=== PATIENT | male | born 2005 | race Caucasian/White ===

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

== ENCOUNTER 2024-05-03 17:59 | Observation (INO) | payer OTHER ==
[2024-05-03 18:52] LABS: Basophils # (A) 0.1 k/uL (0-0.2); Basophils % (A) 1 %; Eosinophils % (A) 0 %; HCT 45.5 % (39.0-53.0); HGB 14.7 gm/dL (13.0-17.5); Lymphocytes # (A) 1.9 k/uL (1.0-4.8); Lymphocytes % (A) 20 %; MCH 31.1 pg (25.0-35.0); MCHC 32.2 g/dL (31.0-37.0); MCV 96.6 fL (80.0-100.0); Mean Platelet Volume 7.1; Monocytes # (A) 0.6 k/uL (0-1.0); Monocytes % (A) 6 %; Neutrophils # (A) 7.1 k/uL (1.3-7.7); Neutrophils % (A) 73 %; Platelet Count 270 k/uL (150-450); RBC 4.71 m/uL (4.30-5.90); WBC 9.8 k/uL (4.0-11.0)
[2024-05-03 19:07] LABS: INR 1.1 (<1.2); Partial Thromboplastin Time 26.2 sec (22.0-30.0); Prothrombin Time 11.8 sec (10.0-12.5)
[2024-05-03 19:09] LABS: ALT 20 U/L (4-49); AST 24 U/L (17-59); African American GFR (CKD) >90 (>60 ml/min/1.73 sqM); Albumin 4.9 g/dL (3.5-5.0); Alkaline Phosphatase 77 U/L (38-126); Anion Gap 10 mmol/L; Blood Urea Nitrogen 15 mg/dL (9-20); Calcium 11.1 mg/dL (8.4-10.2); Carbon Dioxide 24 mmol/L (22-30); Chloride 103 mmol/L (98-107); Glucose 117 mg/dL (74-99); Magnesium 2.1 mg/dL (1.6-2.3); Non-African American GFR(CKD) >90 (>60 ml/min/1.73 sqM); Sodium 137 mmol/L (137-145); Total Bilirubin 1.2 mg/dL (0.2-1.3); Total Protein 7.1 g/dL (6.3-8.2)
--- NOTE | 2024-05-03 19:14 | XR ---
EXAMINATION TYPE: XR chest 2V DATE OF EXAM: 05/03/2024 6:48 PM CLINICAL INDICATION:Male, 19 years old with history of Chest Pain; [facility] COMPARISON: None TECHNIQUE: XR chest 2V Frontal and lateral views of the chest. FINDINGS: Lungs/Pleura: There is no evidence of pleural effusion, focal consolidation, or pneumothorax. Pulmonary vascularity: Unremarkable. Heart/mediastinum: Cardiomediastinal silhouette is unremarkable. Musculoskeletal: No acute osseous pathology. IMPRESSION: No acute cardiopulmonary disease/process.
--- NOTE | 2024-05-03 21:45 | ED ---
Chest Pain HPI - General Chief Complaint: Chest Pain Stated Complaint: SOB/heart flutter Time Seen by Provider: 05/03/24 20:28 Source: patient, RN notes reviewed Mode of arrival: ambulatory Limitations: no limitations - History of Present Illness Initial Comments: 19-year-old male with no significant prior medical history however history of prior IV drug use presenting to the ED with complaints of palpitations, shortness of breath, chest pains. Patient reports last IV drug use approximately 7 months ago. Was snorting and using IV cocaine. States the month following started to notice intermittent episodes of epigastric/chest pain with associated episodes of palpitations and shortness of breath. Reports over the next 3 to 4 months symptoms seem to subside with less frequent episodes however states in the last 3 months symptoms have worsened and have been increasing in frequency. States that he just finished rehab last month and now has free time to get checked out today. No fever or chills. Denies new rashes. No other complaints at this time. - Related Data Home Medications Medication Instructions Recorded Confirmed Lisdexamfetamine Dimesylate 30 mg PO DAILY 02/12/19 02/12/19 [Vyvanse] Allergies Allergy/AdvReac Type Severity Reaction Status Date / Time No Known Allergies Allergy Verified 05/03/24 18:13 Review of Systems ROS Statement: Those systems with pertinent positive or pertinent negative responses have been documented in the HPI. ROS Other: All systems not noted in ROS Statement are negative. Past Medical History Additional Past Medical History / Comment(s): bipolar, ADD History of Any Multi-Drug Resistant Organisms: None Reported Past Surgical History: No Surgical Hx Reported Past Psychological History: ADD/ADHD, Bipolar Smoking Status: Vaper Past Alcohol Use History: Occasional Past Drug Use History: Cocaine, Marijuana General Exam Limitations: no limitations General appearance: alert, in no apparent distress Eye exam: Present: normal appearance Neck exam: Present: normal inspection Respiratory exam: Present: normal lung sounds bilaterally Cardiovascular Exam: Present: regular rate, other (Unable to appreciate any murmur at this time.) GI/Abdominal exam: Present: soft (Epigastric tenderness to palpation.) Neurological exam: Present: alert, oriented X3 Skin exam: Present: other (No Janeway lesions or Osler nodes.) Course Vital Signs 05/03/24 18:11 Temperature 98.4 F Pulse Rate 98 Respiratory 18 Rate Blood Pressure 117/71 O2 Sat by Pulse 98 Oximetry Chest Pain MDM - MDM Was pt. sent in by a medical professional or institution (, [facility], [employer], urgent care, hospital, or retirement...) When possible be specific @ -No Did you speak to anyone other than the patient for history (EMS, parent, family, police, friend...)? What history was obtained from this source @ -No Did you review nursing and triage notes (agree or disagree)? Why? @ -I reviewed and agree with nursing and triage notes Were old charts reviewed (outside hosp., previous admission, EMS record, old EKG, old radiological studies, urgent care reports/EKG's, retirement records)? Report findings @ -No old charts were reviewed Differential Diagnosis (chest pain, altered mental status, abdominal pain women, abdominal pain men, vaginal bleeding, weakness, fever, dyspnea, syncope, headache, dizziness, GI bleed, back pain, seizure, CVA, palpatations, mental health, musculoskeletal)? @ -Differential Chest Pain: Stable Angina, Unstable Angina, STEMI, NSTEMI Aortic Dissection, Pneumothorax, Musculoskeletal, Esophageal Spasm GERD, Cholecystitis, Pancreatitis, Zoster, this is not meant to be an all-inclusive list. EKG interpreted by me (3pts min.). @ -EKG interpreted by me showing a sinus rhythm with nonspecific findings at a rate of 87 bpm. AR 162, QRS 94, QT/QTc 323/368. X-rays interpreted by me (1pt min.). @ -None done CT interpreted by me (1pt min.). @ -Pending at this time U/S interpreted by me (1pt. min.). @ -None done What testing was considered but not performed or refused? (CT, X-rays, U/S, labs)? Why? @ -None What meds were considered but not given or refused? Why? @ -None Did you discuss the management of the patient with other professionals (professionals i.e. [facility], [employer], lab, RT, psych nurse, child protective services social worker, eligibility specialist, teacher, accounts officer, field case manager)? Give summary @ -Case discussed with Dr. Hopkins who accepts admission. Was smoking cessation discussed for >3mins.? @ -No Was critical care preformed (if so, how long)? @ -No Were there social determinants of health that impacted care today? How? (Homelessness, low income, unemployed, alcoholism, drug addiction, transportation, low edu. Level, literacy, decrease access to med. care, care home, rehab)? @ -No Was there de-escalation of care discussed even if they declined (Discuss DNR or withdrawal of care, Hospice)? DNR status @ -No What co-morbidities impacted this encounter? (DM, HTN, Smoking, COPD, CAD, Cancer, CVA, ARF, Chemo, Hep., AIDS, mental health diagnosis, sleep apnea, morbid obesity)? @ -None Was patient admitted / discharged? Hospital course, mention meds given and route, prescriptions, significant lab abnormalities, going to OR and other pertinent info. @ -Admission 19-year-old male with a past medical history significant for IV drug abuse presenting to the ED with complaints of intermittent chest pain, palpitations, shortness of breath. Initial workup at this time unremarkable however EKG did show nonspecific findings. Patient will be admitted to observation with consult to cardiology. Undiagnosed new problem with uncertain prognosis? @ -No Drug Therapy requiring intensive monitoring for toxicity (Heparin, Nitro, Insulin, Cardizem)? @ -No Were any procedures done? @ -No Diagnosis/symptom? @ -Chest pain Acute, or Chronic, or Acute on Chronic? @ -Acute Uncomplicated (without systemic symptoms) or Complicated (systemic symptoms)? @ -Uncomplicated Side effects of treatment? @ -No Exacerbation, Progression, or Severe Exacerbation? @ -No Poses a threat to life or bodily function? How? (Chest pain, [place], [place], pneumonia, PE, COPD, DKA, ARF, appy, cholecystitis, CVA, Diverticulitis, Homicidal, Suicidal, threat to staff... and all critical care pts) @ -Unlikely at this time however possibly Disposition Clinical Impression: Chest pain Disposition: ADMITTED IP TO THIS [facility] Condition: Good Referrals: None,Stated [Primary Care Provider] - 1-2 days Time of Disposition: 23:00
[2024-05-03] MEDS ORDERED: KETOROLAC 15 MG/ML 1 ML VIAL IVP PRN (23:16)
[2024-05-03] MEDS ORDERED: ACETAMINOPHEN TAB 325 MG TAB PO PRN (23:16)
[2024-05-03] MEDS ORDERED: NALOXONE 0.4 MG/ML 1 ML VIAL IV PRN (23:16)
[2024-05-04] MEDS: SODIUM CHLORIDE 0.9% 1,000 ML IV SCH (00:32)
--- NOTE | 2024-05-04 01:21 | CT ---
EXAM: CT Angiography Chest With Intravenous Contrast CLINICAL HISTORY: Palpitations, chest pain, dyspnea hx IVDA TECHNIQUE: Axial computed tomographic angiography images of the chest with intravenous contrast. CTDI is 13.17 mGy and DLP is 339.9 mGy-cm. This CT exam was performed using one or more of the following dose reduction techniques: automated exposure control, adjustment of the mA and/or kV according to patient size, and/or use of iterative reconstruction technique. 3D and MIP reconstructed images were created and reviewed. COMPARISON: Chest x-ray 05/03/2024. FINDINGS: Pulmonary arteries: No pulmonary embolism. Aorta: No thoracic aortic aneurysm or dissection. Lungs: No consolidation. Pleural space: No pleural effusion. No pneumothorax. Heart: No cardiomegaly. No pericardial effusion. No evidence of RV dysfunction. Bones/joints: No acute fracture. Soft tissues: Unremarkable. Lymph nodes: Unremarkable. No enlarged lymph nodes. IMPRESSION: No pulmonary embolism. No infiltrate.
--- NOTE | 2024-05-04 03:40 | P.HPIM ---
History of Present Illness H&P Date: 05/04/24 Patient is a 19-year-old male with a PMH of cocaine abuse who presents to the emergency room with complaints of chest pain and shortness of breath. Patient reports he has been experiencing intermittent pleuritic substernal and epigastric chest discomfort for the past 6 to 7 months with associated shortness of breath. Notes that the pain occurs at rest and with exertion, with tenderness in the epigastric region and that the pain is worsened with deep breathing. Notes the pain is 8 out of 10 at maximal intensity and is sharp in nature when it occurs with no associated nausea, diaphoresis, or dizziness. Also denied experiencing palpitations. Notes that his last use of cocaine was roughly 7 months ago prior to when his pain started. He denies using NSAIDs or having a history of PUD or gastric ulcers. Denies experiencing fever, chills, cough, diarrhea. Chest CTA in the emergency room was unremarkable with EKG showing sinus rhythm at [address] segment elevation diffusely as reviewed by me. Chest x-ray was unremarkable. Laboratory evaluation revealed troponin of less than 0.012 with calcium 11.1 and glucose 117. ED documentation reviewed and case discussed with ED provider. Review of systems: Pertinent positives and negatives as discussed in HPI, a complete review of systems was performed and all other systems are negative. Physical examination: Vital signs reviewed General: non toxic, no distress, appears at stated age, normal weight Derm: no unusual rashes/lesions, warm Head: atraumatic, normocephalic, symmetric Eyes: EOMI, no lid lag, anicteric sclera, pupils equal round reactive to light ENT: Nose and ears atraumatic Neck: No cervical lymphadenopathy, trachea midline, supple Mouth: no lip lesion, mucus membranes moist Cardiovascular: S1S2 reg, no murmur, positive dorsalis pedis pulse bilateral, no edema Lungs: CTA bilateral, no rhonchi, no rales, no accessory muscle use Abdominal: soft, mild epigastric tenderness, no guarding Ext: muscle strength 5 out of 5 in all 4 extremities grossly, no gross muscle atrophy, no contractures, Neuro: CN II-XI grossly intact, no gross focal neuro deficits Psych: Alert, oriented, appropriate affect Assessment: Atypical chest pain with shortness of breath and EKG abnormalities History of cocaine abuse Imaging: Chest CTA in the emergency room was unremarkable with EKG showing sinus rhythm at [address] segment elevation diffusely as reviewed by me. Chest x-ray was unremarkable. Data Review: Laboratory evaluation revealed troponin of less than 0.012 with calcium 11.1 and glucose 117. Plan: Cardiac monitoring Cardiology consulted Echocardiogram ordered DVT prophylaxis: Lovenox subcu The patient is admitted with an anticipated less than 2 midnight stay for evaluation of chest pain CODE STATUS: Full Code Discussed with: Patient Anticipated discharge place: Home Past Medical History Additional Past Medical History / Comment(s): bipolar, ADD History of Any Multi-Drug Resistant Organisms: None Reported Past Surgical History: No Surgical Hx Reported Past Psychological History: ADD/ADHD, Bipolar Smoking Status: Vaper Past Alcohol Use History: Occasional Past Drug Use History: Cocaine, Marijuana - Past Family History Mother Family Medical History: Hypertension Medications and Allergies Home Medications Medication Instructions Recorded Confirmed Type Lisdexamfetamine Dimesylate 30 mg PO DAILY 02/12/19 02/12/19 History [Vyvanse] Allergies Allergy/AdvReac Type Severity Reaction Status Date / Time No Known Allergies Allergy Verified 05/03/24 18:13 Physical Exam Vitals: Vital Signs Temp Pulse Resp BP Pulse Ox 05/04/24 00:33 57 L 20 05/03/24 23:30 66 20 123/69 99 05/03/24 18:11 98.4 F 98 18 117/71 98 Intake and Output 05/03/24 05/03/24 05/04/24 14:59 22:59 06:59 Other: Weight 76.204 kg Results CBC & Chem 7: 05/03/24 18:32 05/03/24 18:32 Labs: Abnormal Lab Results - Last 24 Hours (Table) 05/03/24 Range/Units 18:32 Glucose 117 H (74-99) mg/dL Calcium 11.1 H (8.4-10.2) mg/dL
[2024-05-04] MEDS: ENOXAPARIN 40 MG/0.4 ML SYRINGE SQ SCH (08:15)
[2024-05-04] MEDS: ASPIRIN 81 MG PO SCH (10:20)
--- NOTE | 2024-05-04 10:21 | P.CRDCN ---
History of Present Illness History of present illness: HISTORY OF PRESENT ILLNESS: This is a 19-year-old male with a past medical history significant for cocaine use. Patient does not follow with a mechanical test technician. We have been asked to see the patient in consultation for chest pain. Patient examined at the bedside in the emergency room. Patient states he has been having chest discomfort for the past 6 to 7 months. He states this all began since his last relapse of cocaine which was about 7 months ago. He states he has been sober since that time. He states that he finished rehab at the end of March and is now in a sober living. He rep orts associated shortness of breath when he has the chest pain. He also reports having palpitations. He states that there is nothing really specific that can bring on the pain. He does report that caffeine or preworkout does seem to make his symptoms worse. Patient is a daily smoker in the form of vaping. DIAGNOSTICS: - EKG reveals sinus mechanism with early repolarization. - Chest xray negative for acute process. - Chest CTA: Negative for pulmonary embolism. No infiltrate visualized. - Laboratory data: WBC 9.8. Hemoglobin 14.7. Platelet count 270. Sodium 137. Potassium 4.0. BUN 15. Creatinine 0.90. Troponin negative x 4 - Current home cardiac medications include none. REVIEW OF SYSTEMS: At the time of my exam: CONSTITUTIONAL: Denies fever or chills. HEENT: Denies blurred vision, vision changes, or eye pain. Denies hemoptysis CARDIOVASCULAR: Denies chest pain. Denies orthopnea. Denies PND. Denies palpitations RESPIRATORY: Denies shortness of breath. GASTROINTESTINAL: Denies abdominal pain. Denies nausea or vomiting. HEMATOLOGIC: Denies bleeding disorders. GENITOURINARY: Denies any blood in urine. SKIN: Denies pruitis. Denies rash. PHYSICAL EXAM: VITAL SIGNS: Reviewed. GENERAL: Well-developed in no acute distress. HEENT: Head is normocephalic. Pupils are equal, round. Sclerae anicteric. Mucous membranes of the mouth are moist. Neck supple. No JVD or thyromegaly LUNGS: Respirations even and unlabored. Lungs essentially clear to auscultation bilaterally. HEART: Regular rate and rhythm. S1 and S2 heard. ABDOMEN: Soft. Nondistended. Nontender. EXTREMITIES: Normal range of motion. No clubbing or cyanosis. Peripheral pulses intact. No lower extremity edema NEUROLOGIC: Awake and alert. Oriented x 3. ASSESSMENT: Chest pain, troponin negative x 4 History of cocaine abuse Nicotine dependence, patient vapes PLAN: An acute coronary event has been ruled out Obtain 2D echo to assess cardiac structure and function Patient to undergo exercise stress test today. If negative he may be discharged home from a cardiac standpoint Smoking cessation recommended. Patient to be referred to [place] quit line upon discharge. Further recommendations pending patient course Nurse practitioner note has been reviewed by physician. Signing provider agrees with the documented findings, assessment, and plan of care documented by BREWERY PUMPER as a scribe. Past Medical History Additional Past Medical History / Comment(s): bipolar, ADD History of Any Multi-Drug Resistant Organisms: None Reported Past Surgical History: No Surgical Hx Reported Past Psychological History: ADD/ADHD, Bipolar Smoking Status: Vaper Past Alcohol Use History: Occasional Past Drug Use History: Cocaine, Marijuana - Past Family History Mother Family Medical History: Hypertension Medications and Allergies Home Medications Medication Instructions Recorded Confirmed Type No Known Home Medications 05/04/24 05/04/24 History Allergies Allergy/AdvReac Type Severity Reaction Status Date / Time No Known Allergies Allergy Verified 05/04/24 07:39 Physical Exam Vitals: Vital Signs Temp Pulse Resp BP Pulse Ox 05/04/24 03:58 98.2 F 72 20 118/70 99 05/04/24 00:33 57 L 20 05/03/24 23:30 66 20 123/69 99 05/03/24 18:11 98.4 F 98 18 117/71 98 Intake and Output 05/03/24 05/04/24 05/04/24 22:59 06:59 14:59 Other: Weight 76.204 kg Results 05/03/24 18:32 05/03/24 18:32 Cardiac Enzymes 05/03/24 05/03/24 05/03/24 Range/Units 18:32 18:32 22:19 AST 24 (17-59) U/L Troponin I <0.012 <0.012 (0.000-0.034) ng/mL 05/04/24 05/04/24 Range/Units 01:20 05:19 AST (17-59) U/L Troponin I <0.012 <0.012 (0.000-0.034) ng/mL Coagulation 05/03/24 Range/Units 18:32 PT 11.8 (10.0-12.5) sec APTT 26.2 (22.0-30.0) sec CBC 05/03/24 Range/Units 18:32 WBC 9.8 (4.0-11.0) k/uL RBC 4.71 (4.30-5.90) m/uL Hgb 14.7 (13.0-17.5) gm/dL Hct 45.5 (39.0-53.0) % Plt Count 270 (150-450) k/uL Comprehensive Metabolic Panel 05/03/24 Range/Units 18:32 Sodium 137 (137-145) mmol/L Potassium 4.0 (3.5-5.1) mmol/L Chloride 103 (98-107) mmol/L Carbon Dioxide 24 (22-30) mmol/L BUN 15 (9-20) mg/dL Creatinine 0.90 (0.66-1.25) mg/dL Glucose 117 H (74-99) mg/dL Calcium 11.1 H (8.4-10.2) mg/dL AST 24 (17-59) U/L ALT 20 (4-49) U/L Alkaline Phosphatase 77 (38-126) U/L Total Protein 7.1 (6.3-8.2) g/dL Albumin 4.9 (3.5-5.0) g/dL Current Medications Generic Name Dose Route Start Last Admin Trade Name Freq PRN Reason Stop Dose Admin Acetaminophen 650 mg 05/03/24 23:16 Acetaminophen Tab 325 Mg Tab PO Q6HR PRN Mild Pain or Fever > 100.5 Enoxaparin Sodium 40 mg 05/04/24 09:00 Enoxaparin 40 Mg/0.4 Ml Syringe SQ DAILY SUNNY Sodium Chloride 1,000 mls @ 20 mls/hr 05/03/24 23:30 05/04/24 00:32 Saline 0.9% IV 20 mls/hr .Q24H SUNNY Administration Ketorolac Tromethamine 15 mg 05/03/24 23:16 Ketorolac 15 Mg/Ml 1 Ml Vial IVP 05/06/24 23:17 Q6HR PRN Moderate Pain (Scale 4 to 6) Naloxone HCl 0.2 mg 05/03/24 23:16 Naloxone 0.4 Mg/Ml 1 Ml Vial IV Q2M PRN Opioid Reversal Intake and Output 05/03/24 05/04/24 05/04/24 22:59 06:59 14:59 Other: Weight 76.204 kg 05/03/24 18:32 05/03/24 18:32
--- NOTE | 2024-05-04 11:20 | CA ---
Transthoracic Echo Report Name: Binh Narayan Age: 19 Gender: M : 2005 Exam Date: 05/04/2024 08:19 Exam Location: [facility] Ht (in): 71 Wt (lb): 168 Ordering Physician: Lamine Hopkins MD Attending/Referring Phys: Veterinary X Ray Operator Naida Henriquez RDCS Procedure CPT: Indications: Chest Pain Cardiac Hx: Technical Quality: Contrast 1: Total Dose (mL): Contrast 2: Total Dose (mL): MEASUREMENTS (Male / Female) Normal Values 2D ECHO LV Diastolic Diameter PLAX 4.3 cm 4.2 - 5.9 / 3.9 - 5.3 cm LV Systolic Diameter PLAX 3.4 cm IVS Diastolic Thickness 0.8 cm 0.6 - 1.0 / 0.6 - 0.9 cm LVPW Diastolic Thickness 0.9 cm 0.6 - 1.0 / 0.6 - 0.9 cm LV Relative Wall Thickness 0.4 RV Internal Dim ED PLAX 4.4 cm LA Volume 50.4 cm??? 18 - 58 / 22 - 52 cm??? LA Volume Index 25.7 cm???/m??? 16 - 28 cm???/m??? M-MODE Aortic Root Diameter MM 3.2 cm LA Systolic Diameter MM 2.9 cm LA Ao Ratio MM 0.9 AV Cusp Separation MM 2.4 cm DOPPLER AV Peak Velocity 101.0 cm/s AV Peak Gradient 4.1 mmHg AV Mean Velocity 67.9 cm/s AV Mean Gradient 2.0 mmHg AV Velocity Time Integral 21.7 cm LVOT Peak Velocity 73.4 cm/s LVOT Peak Gradient 2.2 mmHg LVOT Velocity Time Integral 14.9 cm MV Area PHT 2.3 cm??? Mitral E Point Velocity 79.1 cm/s Mitral A Point Velocity 36.1 cm/s Mitral E to A Ratio 2.2 MV Deceleration Time 328.4 ms MV E' Velocity 16.3 cm/s Mitral E to MV E' Ratio 4.8 TR Peak Velocity 223.1 cm/s TR Peak Gradient 19.9 mmHg FINDINGS Left Ventricle Left ventricular cavity size normal. Left ventricular wall thickness normal. Normal left ventricular systolic function with no obvious regional wall motion abnormalities. Left ventricular ejection fraction is estimated at 50 %. Normal left ventricular diastolic filling pattern. Right Ventricle Right ventricular dilatation. Right ventricular systolic pressure within normal limits. Right Atrium Normal right atrial size. Left Atrium Normal left atrial size. Mitral Valve Structurally normal mitral valve. Trace to mild mitral regurgitation. Aortic Valve Trileaflet aortic valve. No aortic valve stenosis or regurgitation. Tricuspid Valve Structurally normal tricuspid valve. Mild tricuspid regurgitation. Pulmonic Valve Structurally normal pulmonic valve. Trace pulmonic regurgitation. Pericardium No pericardial effusion. Aorta Normal size aortic root and proximal ascending aorta. CONCLUSIONS Low normal LV systolic function with EF at 50% Normal RV dimension and systolic function Normal pulmonary artery systolic pressure Overall normal intracardiac valves. The aortic valve was poorly visualized No evidence of pericardial effusion Previewed by: Dr. Severino Dale MD (Electronically Signed) Final Date: 04 May 2024 11:20
--- NOTE | 2024-05-04 18:28 | P.PN ---
Subjective Progress Note Date: 05/04/24 Hospital course: Patient is a 19-year-old male with a past medical history of ADHD, bipolar disorder, nicotine dependence, and polysubstance abuse with cocaine and marijuana. He presented to the emergency department on 05/03/2024 with reports of chest pain and shortness of breath. On arrival to our facility, patient underwent evaluation in the emergency department. Vital signs upon arrival show blood pressure 117/71, heart rate 98, respiratory rate 18, temp 98.4 F, and SpO2 of 98% on room air. EKG completed showing normal sinus rhythm at 87 bpm with mild elevation in inferolateral leads II, III, aVF, and V5 and V6. Chest x-ray completed negative for acute cardiopulmonary process. CTA chest completed negative for acute process, negative for pulmonary embolism. Labs were completed and reviewed. CBC was unremarkable. Coagulation profile normal findings. BMP revealing mild hyperglycemia with glucose of 117 otherwise normal findings. Calcium was elevated at 11.1. Liver profile unremarkable. Troponin was negative at less than 0.012. Patient was admitted under services with consultation to cardiology. Troponins were trended overnight all negative at less than 0.012 x 4 draws. Echocardiogram was completed showing a preserved EF of 50% with no significant valvular or structural abnormality reported and no evidence of pericardial effusion. Cardiology evaluated and took patient for stress testing. Physical exam: Vital signs reviewed and stable. General: Nontoxic, no distress and appears stated age. Derm: Skin warm and dry, normal coloration for ethnicity. Head: Atraumatic, normocephalic and symmetric. Eyes: EOMs intact, no lid lag, and anicteric sclera Mouth: no lip lesions, mucus membranes moist Cardiovascular: regular rate and rhythm with normal S1S2, no murmur, positive posterior tibial pulses bilaterally, and cap refill < 2 seconds. Lungs: Respirations even, regular, and unlabored on room air. Lungs CTA bilaterally, no rhonchi, no rales, no wheezing, and no accessory muscle usage. Abdominal: soft, nontender to palpation, no guarding, no appreciable organomegaly Ext: ROM intact. No gross muscle atrophy, no edema, no contractures Neuro: Speech clear, face symmetrical and CN II-XII grossly intact with no noted focal neuro deficits Psych: Alert and oriented to person, place, time, and situation. Appropriate and pleasant affect. Assessment and Plan of Care: Chest pain, acute coronary event ruled out Polysubstance abuse with cocaine and marijuana Nicotine dependence ADHD Bipolar Disorder -Cardiology consulted, taking patient for stress testing. -Telemetry monitoring -Troponins trended all negative at less than 0.012 x 4 draws. -Aspirin 81 mg daily, -Echocardiogram was completed showing a preserved EF of 50% with no significant valvular or structural abnormality reported and no evidence of pericardial effusion Data and imaging reviewed: -Troponins were trended overnight all negative at less than 0.012 x 4 draws. -Echocardiogram was completed showing a preserved EF of 50% with no significant valvular or structural abnormality reported and no evidence of pericardial effusion. -Vital signs reviewed. Blood pressure 111/59, heart rate 82, respiratory rate 18, temp 97.0 F, and SpO2 of 99% on room air. CODE STATUS: Full Code DVT prophylaxis: Lovenox Anticipated discharge date: Patient to be discharged once stress test results are available. Anticipated discharge place: Home Patient was seen independently by Nurse Pracitioner. This document was prepared using [employer] dictation software. Please allow for errors in climbing guide, while rare they do occur. I reviewed the documentation as provided by the MARSHAL above, who is the original author of this note. I agree with the documented assessment and plan, with the following changes: none Objective - Vital Signs Vital signs: Vital Signs Temp 97.0 F L 05/04/24 08:13 Pulse 82 05/04/24 08:13 Resp 18 05/04/24 08:13 BP 111/59 05/04/24 08:13 Pulse Ox 99 05/04/24 08:13 FiO2 Intake & Output 05/03/24 05/04/24 05/04/24 18:59 06:59 18:59 Weight 76.204 kg - Labs CBC & Chem 7: 05/03/24 18:32 05/03/24 18:32 Labs: Abnormal Lab Results - Last 24 Hours (Table) 05/03/24 Range/Units 18:32 Glucose 117 H (74-99) mg/dL Calcium 11.1 H (8.4-10.2) mg/dL
[2024-05-05 02:37] VITALS: RESP 16
--- NOTE | 2024-05-05 11:31 | CA ---
Exercise Stress Test Report Name: Binh Narayan Exam Date: 05/04/2024 12:13 Exam Location: [place] Stress Ht (in): 71 Wt (lb): 168 BSA: 1.96 Ordering Phys: Marychuy Bullock Referring Phys: JIN,, Technologist: LAURA,, Age: 19 Gender: M : 2005 Procedure CPT: Indications: CP ICD-10 Codes: Patient History: CHEST PAIN, DIFFICULTY IN BREATHING, PALPITATIONS, FAMILY HX OF HEART DISEASE, HX OF VAPING Medications: Meds past 24 hrs: Pretest Chest Pain: STRESS TEST Maxx Protocol Exercise Duration (min:sec): 10:[address] Depressions (mm): Angina Score: Nichole Score: Resting HR (bpm): 81 Peak HR (bpm): 153 Resting BP (mmHg): 112 / 71 Peak BP (mmHg): 140 / 56 MPHR: 200 Target HR: 170 % MPHR: 76 METS: 12.1 Total Dose: Peak Dose: Atropine: Double Product: 40527 BP Response: Stress Termination: Dizziness,Fatigue Stress Symptoms: DIZZINESS/LIGHTHEADEDNESS/FATIGUE Stress Summary: ECG ANALYSIS Resting ECG: Stress ECG: CONCLUSIONS Excellent exercise tolerance Nondiagnostic electrocardiogram stress testing Dr. Severino Dale MD (Electronically Signed) Final Date: 05 May 2024 11:30
--- NOTE | 2024-05-05 11:40 | P.PN ---
Subjective HISTORY OF PRESENT ILLNESS: This is a 19-year-old male with a past medical history significant for cocaine use. Patient does not follow with a bottom stainer. We have been asked to see the patient in consultation for chest pain. Patient examined at the bedside in the emergency room. Patient states he has been having chest discomfort for the past 6 to 7 months. He states this all began since his last relapse of cocaine which was about 7 months ago. He states he has been sober since that time. He states that he finished rehab at the end of March and is now in a sober living. He reports associated shortness of breath when he has the chest pain. He also reports having palpitations. He states that there is nothing really specific that can bring on the pain. He does report that caffeine or preworkout does seem to make his symptoms worse. Patient is a daily smoker in the form of vaping. DIAGNOSTICS: - EKG reveals sinus mechanism with early repolarization. - Chest xray negative for acute process. - Chest CTA: Negative for pulmonary embolism. No infiltrate visualized. - Laboratory data: WBC 9.8. Hemoglobin 14.7. Platelet count 270. Sodium 137. Potassium 4.0. BUN 15. Creatinine 0.90. Troponin negative x 4 - Current home cardiac medications include none. 05/05/2024 Patient examined this morning at the bedside. Patient currently denies chest pain or pressure. He denies shortness of breath. Vital signs are stable. Josue sorto underwent stress testing yesterday which was nondiagnostic. Echocardiogram completed revealing ejection fraction 55%, trace to mild MR PHYSICAL EXAM: VITAL SIGNS: Reviewed. GENERAL: Well-developed in no acute distress. HEENT: Head is normocephalic. Pupils are equal, round. Sclerae anicteric. Mucous membranes of the mouth are moist. Neck supple. No JVD or thyromegaly LUNGS: Respirations even and unlabored. Lungs essentially clear to auscultation bilaterally. HEART: Regular rate and rhythm. S1 and S2 heard. ABDOMEN: Soft. Nondistended. Nontender. EXTREMITIES: Normal range of motion. No clubbing or cyanosis. Peripheral pulses intact. No lower extremity edema NEUROLOGIC: Awake and alert. Oriented x 3. ASSESSMENT: Chest pain, troponin negative x 4 History of cocaine abuse Nicotine dependence, patient vapes PLAN: Smoking cessation recommended. Patient to be referred to [place] quit line upon discharge. Patient underwent exercise stress testing yesterday which was nondiagnostic Patient will undergo exercise stress test again today with echo imaging If negative, patient may be discharged home from a cardiac standpoint Nurse practitioner note has been reviewed by physician. Signing provider agrees with the documented findings, assessment, and plan of care documented by [facility] as a scribe. Objective - Vital Signs Vital signs: Vital Signs Temp 98.1 F 05/05/24 02:36 Pulse 82 05/05/24 02:36 Resp 16 05/05/24 02:36 BP 114/67 05/05/24 02:36 Pulse Ox 100 05/05/24 02:36 FiO2 Intake & Output 05/04/24 05/05/24 05/05/24 18:59 06:59 18:59 Intake Total 118 Balance 118 Weight 76.204 kg Intake: Oral 118 Other: # Voids 1 2 - Labs CBC & Chem 7: 05/03/24 18:32 05/03/24 18:32
--- NOTE | 2024-05-05 13:41 | CA ---
Stress Echo Report Binh Narayan Age: 19 Gender: M : 2005 Exam Date: 05/05/2024 12:35 Exam Location: [place] Stress Ht (in): 71 Wt (lb): 168 Ordering Physician: Marychuy Bullock Referring Physician: [id number] Template Fitter: Kenn Nice Technologist Procedure CPT: Indication: CP ICD-9 Codes: Rhythm: Patient History: Cardiac Medications: see chart Medications in past 24 hours: Contrast: N/A Stress Results Protocol: Maxx Total dose(mL): NA Exercise Duration (min:sec): 12:[address] Depression (mm): Angina Score: Nichole Score: METS: 12.3 Resting HR: 67 Resting BP: 109 / 50 Peak HR: 177 Peak BP: 166 / 59 Max Predicted HR: 200 89 % Max Predicted HR Target HR: 170 Double Product: [id number] Stress Summary: BP Response: Reason for Termination: Reached target heart rate or work-load Cardiac Symptoms: NO SYMPTOMS ECG Analysis Resting ECG: Stress ECG: Arrhythmia: Echo Analysis Resting Echo: Peak Echo Analysis: MEASUREMENTS (Male/Female) Normal Values CONCLUSIONS Excellent exercise tolerance Normal electrocardiogram and echocardiogram in response to exercise Dr. Severino Dale MD (Electronically Signed) Final Date: 05 May 2024 13:41
[2024-05-05 14:05] VITALS: BP 112/77; PULSE 64; TEMP 98.1
--- NOTE | 2024-05-05 14:22 | P.DS ---
Providers Date of admission: 05/04/24 01:14 Expected date of discharge: 05/05/24 Attending physician: Lamine Hopkins MD Primary care physician: Stated None Hospital Course: Discharge Diagnosis: Chest pain, acute coronary event ruled out. Polysubstance abuse with cocaine and marijuana. Nicotine dependence ADHD Bipolar Disorder Hospital Course: Patient is a 19-year-old male with a past medical history of ADHD, bipolar disorder, nicotine dependence, and polysubstance abuse with cocaine and marijuana. He presented to the emergency department on 05/03/2024 with reports of chest pain and shortness of breath. On arrival to our facility, patient underwent evaluation in the emergency department. Vital signs upon arrival show blood pressure 117/71, heart rate 98, respiratory rate 18, temp 98.4 F, and SpO2 of 98% on room air. EKG completed showing normal sinus rhythm at 87 bpm with mild elevation in inferolateral leads II, III, aVF, and V5 and V6. Chest x-ray completed negative for acute cardiopulmonary process. CTA chest completed negative for acute process, negative for pulmonary embolism. Labs were completed and reviewed. CBC was unremarkable. Coagulation profile normal findings. BMP revealing mild hyperglycemia with glucose of 117 otherwise normal findings. Calcium was elevated at 11.1. Liver profile unremarkable. Troponin was negative at less than 0.012. Patient was admitted under services with consultation to cardiology. Troponins were trended overnight all negative at less than 0.012 x 4 draws. Echocardiogram was completed showing a preserved EF of 50% with no significant valvular or structural abnormality reported and no evidence of pericardial effusion. Stress test was completed and reported to be excellent exercise tolerance but nondiagnostic electrocardiogram stress testing. Cardiology recommended repeating with stress echo. Stress echo then completed again showing excellent exercise tolerance with normal electrocardiogram and echocardiogram response to exercise. Patient cleared from cardiac perspective for discharge. Medically he is stable for discharge at this time. Patient strongly educated on the importance of avoiding any and all drug use especially cocaine. Patient to follow-up outpatient with PCP in 1 to 2 days and with mathematics professor in 1 week. Physical exam: Vital signs reviewed and stable. General: Nontoxic, no distress and appears stated age. Derm: Skin warm and dry, normal coloration for ethnicity. Head: Atraumatic, normocephalic and symmetric. Eyes: EOMs intact, no lid lag, and anicteric sclera Mouth: no lip lesions, mucus membranes moist Cardiovascular: regular rate and rhythm with normal S1S2, no murmur, positive posterior tibial pulses bilaterally, and cap refill < 2 seconds. Lungs: Respirations even, regular, and unlabored on room air. Lungs CTA bilaterally, no rhonchi, no rales, no wheezing, and no accessory muscle usage. Abdominal: soft, nontender to palpation, no guarding, no appreciable organomegaly Ext: ROM intact. No gross muscle atrophy, no edema, no contractures Neuro: Speech clear, face symmetrical and CN II-XII grossly intact with no noted focal neuro deficits Psych: Alert and oriented to person, place, time, and situation. Appropriate and pleasant affect. A total of 31 minutes of time were spent preparing this complex discharge summary. Pt was discharged on 05/05/2024 at 2:19 PM Patient was seen independently by Nurse Practitioner. This document was prepared using [employer] dictation software. Please allow for errors in substation operator helper while rare they do occur. .I reviewed the documentation as provided by the MARSHAL above, who is the original author of this note. I agree with the documented assessment and plan, with the following changes: none Patient Condition at Discharge: Stable Plan - Discharge Summary Discharge Rx Participant: Yes New Discharge Prescriptions: No Action No Known Home Medications Discharge Medication List No Known Home Medications 05/04/24 [History] Follow up Appointment(s)/Referral(s): Severino Dale MD [STAFF PHYSICIAN] - 2 Weeks Hermes Blakc MD [REFERRING] - 1 Week (please call and schedule outpatient follow up) Patient Instructions/Handouts: Chest Pain (DC), Cocaine Abuse (DC) Discharge/Stand Alone Forms: Community Resources, Outpatient Counseling, Inp Substance Abuse Facilities Discharge Disposition: HOME SELF-CARE
== END 2024-05-05 14:24 | disposition home or self-care (01) ==
LOC: EC 17:59 → 6NMEDSUR 05-04 01:14
PROVIDERS: ADMIT Internal Medicine; ATTEND Internal Medicine
DX: R07.89 Other chest pain (principal); R94.31 Abnormal electrocardiogram [ECG] [EKG]; F14.10 Cocaine abuse, uncomplicated; F12.10 Cannabis abuse, uncomplicated; R73.9 Hyperglycemia, unspecified; E83.52 Hypercalcemia; R10.13 Epigastric pain; R00.2 Palpitations; R06.02 Shortness of breath; F31.9 Bipolar disorder, unspecified; F90.9 Attention-deficit hyperactivity disorder, unspecified type; F17.290 Nicotine dependence, other tobacco product, uncomplicated; Z79.899 Other long term (current) drug therapy
CPT/HCPCS: 96372; 99285; 36415; 93005; 93017; 93306; 93351; 80053; 83735; 84484 ×2; 85025; 85610; 85730; 71046; 71275; G0378 ×2; J1650; Q9967

== ENCOUNTER 2024-07-10 14:07 | Emergency (ER) | payer OTHER ==
[2024-07-10] MEDS: SODIUM CHLORIDE 0.9% 1,000 ML IV STA (14:48)
[2024-07-10 14:49] LABS: Basophils % (A) 1 %; Eosinophils # (A) 0.1 k/uL (0-0.7); Eosinophils % (A) 2 %; HCT 45.1 % (39.0-53.0); HGB 15.1 gm/dL (13.0-17.5); Lymphocytes # (A) 1.8 k/uL (1.0-4.8); Lymphocytes % (A) 32 %; MCH 31.7 pg (25.0-35.0); MCHC 33.5 g/dL (31.0-37.0); MCV 94.7 fL (80.0-100.0); Mean Platelet Volume 6.6; Monocytes # (A) 0.5 k/uL (0-1.0); Monocytes % (A) 8 %; Neutrophils # (A) 3.1 k/uL (1.3-7.7); Neutrophils % (A) 56 %; Platelet Count 248 k/uL (150-450); RBC 4.76 m/uL (4.30-5.90); RDW 11.9 % (11.5-15.5); WBC 5.5 k/uL (4.0-11.0)
[2024-07-10 15:02] LABS: Partial Thromboplastin Time 26.1 sec (22.0-30.0); Prothrombin Time 11.2 sec (10.0-12.5)
[2024-07-10 15:05] LABS: ALT 16 U/L (4-49); AST 20 U/L (17-59); African American GFR (CKD) >90 (>60 ml/min/1.73 sqM); Albumin 4.3 g/dL (3.5-5.0); Alkaline Phosphatase 72 U/L (38-126); Anion Gap 6 mmol/L; Blood Urea Nitrogen 14 mg/dL (9-20); Calcium 10.7 mg/dL (8.4-10.2); Carbon Dioxide 28 mmol/L (22-30); Chloride 104 mmol/L (98-107); Glucose 87 mg/dL (74-99); Non-African American GFR(CKD) >90 (>60 ml/min/1.73 sqM); Potassium 4.4 mmol/L (3.5-5.1); Sodium 138 mmol/L (137-145); Total Bilirubin 0.7 mg/dL (0.2-1.3); Total Protein 6.6 g/dL (6.3-8.2)
--- NOTE | 2024-07-10 15:37 | XR ---
EXAMINATION TYPE: XR chest 2V DATE OF EXAM: 07/10/2024 3:30 PM CLINICAL INDICATION: Male, 19 years old with history of dysrhythmia; [facility] COMPARISON: Chest radiographs from 05/03/2024 TECHNIQUE: XR chest 2V Frontal view of the chest. FINDINGS: Lungs/Pleura: There is no evidence of pleural effusion, focal consolidation, or pneumothorax. Pulmonary vascularity: Unremarkable. Heart/mediastinum: Cardiomediastinal silhouette is unremarkable. Musculoskeletal: No acute osseous pathology. Other findings: None IMPRESSION: No acute cardiopulmonary disease/process.
--- NOTE | 2024-07-10 16:10 | ED ---
Arrhythmia/Palpitations HPI - General Chief Complaint: Arrhythmia/Palpitations Stated Complaint: Heart Palpatations Time Seen by Provider: 07/10/24 14:15 Source: patient, EMS, RN notes reviewed Mode of arrival: EMS Limitations: no limitations - History of Present Illness Initial Comments: This is a 19-year-old male who presents to the emergency department for palpitations. Reports generalized palpitations on and off for the last 6 months since coming off of cocaine. When he woke up this morning he had palpitations again. He had generalized chest discomfort. Denies any shortness of breath. Symptoms have since started to subside. He was evaluated here a couple of months ago for chest pain, and at that time states his symptoms were worse. He was admitted overnight and had a cardiology evaluation, which he states was negative. MD Complaint: palpitations - Related Data Home Medications Medication Instructions Recorded Confirmed No Known Home Medications 05/04/24 07/10/24 Allergies Allergy/AdvReac Type Severity Reaction Status Date / Time No Known Allergies Allergy Verified 07/10/24 14:34 Review of Systems ROS Statement: Those systems with pertinent positive or pertinent negative responses have been documented in the HPI. ROS Other: All systems not noted in ROS Statement are negative. Past Medical History Additional Past Medical History / Comment(s): ADHD, depression, anxiety History of Any Multi-Drug Resistant Organisms: None Reported Past Surgical History: No Surgical Hx Reported Past Psychological History: ADD/ADHD, Bipolar Smoking Status: Current every day smoker, Vaper Past Alcohol Use History: None Reported, Occasional Past Drug Use History: None Reported - Past Family History Mother Family Medical History: Hypertension General Exam Limitations: no limitations General appearance: alert, in no apparent distress Head exam: Present: atraumatic, normocephalic, normal inspection Respiratory exam: Present: normal lung sounds bilaterally. Absent: respiratory distress, wheezes, rales, rhonchi, stridor Cardiovascular Exam: Present: regular rate, normal rhythm, normal heart sounds. Absent: systolic murmur, diastolic murmur, rubs, gallop, clicks Neurological exam: Present: alert, oriented X3, CN II-XII intact Psychiatric exam: Present: normal affect, normal mood Skin exam: Present: warm, dry, intact, normal color. Absent: rash Course Vital Signs 08/26/24 08/26/24 08/26/24 14:09 15:50 16:44 Temperature 98.6 F 98.1 F Pulse Rate 53 L 55 L 76 Respiratory 16 16 18 Rate Blood Pressure 127/61 130/88 127/84 O2 Sat by Pulse 98 100 97 Oximetry Medical Decision Making - Medical Decision Making This is a 19 year old male who presents to the emergency department for p alpitations. Was pt. sent in by a medical professional or institution? @ -No Did you speak to anyone other than the patient for history? @ -No Did you review nursing and triage notes? @ -Yes, and I agree, it is accurate with regards to the patient's symptoms. Were old charts reviewed? @ -Stress echo from 05/05/2024 that was unremarkable. Differential Diagnosis? @ -Differential Palpitations: Ventricular arrhythmias, atrial arrhythmias, myocardial infarction, anemia, thyrotoxicosis, electrolyte imbalance, hypokalemia, pulmonary embolism, pulmonary disease, drugs, alcohol, anxiety, stress.... This is not meant to be an all-inclusive list. EKG interpreted by me (3pts min.)? @ -EKG interpreted by me demonstrating the following: Sinus bradycardia. Ventricular rate 52 bpm, AR interval 173 ms, QRS duration 100 ms, QTc 352 ms. X-rays interpreted by me (1pt min.)? @ -Chest x-ray obtained, my interpretation identifies no localized consolidations or infiltrates. CT interpreted by me (1pt min.)? @ -Not obtained U/S interpreted by me (1pt. min.)? @ -Not obtained What testing was considered but not performed? (CT, X-rays, U/S, labs)? Why? @ -None What meds were considered but not given? Why? @ -None Did you discuss the management of the patient with other professionals? @ -No Did you reconcile home meds? @ -No Was smoking cessation discussed for >3mins.? @ -I discussed smoking cessation for greater than 3 minutes. The risk of smoking were discussed with the patient including but not limited to risks of cancer, stroke, coronary artery disease and COPD. Also discussed with patient were multiple methods of quitting smoking. Lastly we discussed the financial cost of smoking. Was critical care preformed (if so, how long)? @ -No Were there social determinants of health that impacted care today? How? (Homelessness, low income, unemployed, alcoholism, drug addiction, transport ation, low edu. Level, literacy, decrease access to med. care, fpc, rehab)? @ -No Was there de-escalation of care discussed even if they declined? (Discuss DNR or withdrawal of care, Hospice)? @ -No What co-morbidities impacted this encounter? (DM, HTN, Smoking, COPD, CAD, Cancer, CVA, Hep., AIDS, mental health diagnosis, sleep apnea, morbid obesity)? @ -Smoking Was patient admitted / discharged? @ -Discharged. Lab work unremarkable including a negative troponin and negative D-dimer. Chest x-ray reveals no acute process. Given that the patient had a negative cardiac workup just 2 months ago, as well as his age and stable EKG findings, patient can be discharged home. Advised follow-up with cardiology and becoming established with a primary care provider. Patient discharged home in stable condition. Case discussed with ED attending Dr. Estraad. Return precautions reviewed in depth, the patient is instructed to return to the emergency department with any new, worsening, or concerning symptoms. Patient verbalized understanding. Undiagnosed new problem with uncertain prognosis? @ -None Drug Therapy requiring intensive monitoring for toxicity (Heparin, Nitro, Insulin, Cardizem)? @ -None Were any procedures done? @ -None Diagnosis/symptom? @ -Palpitations Acute, or Chronic, or Acute on Chronic? @ -Acute Uncomplicated (without systemic symptoms) or Complicated (systemic symptoms)? @ -Uncomplicated Side effects of treatment? @ -None Exacerbation, Progression, or Severe Exacerbation] @ -Not applicable Poses a threat to life or bodily function? @ -Unlikely - Lab Data Result diagrams: 07/10/24 14:35 07/10/24 14:35 Lab Results 07/10/24 07/10/24 07/10/24 Range/Units 14:35 14:35 14:35 WBC 5.5 (4.0-11.0) k/uL RBC 4.76 (4.30-5.90) m/uL Hgb 15.1 (13.0-17.5) gm/dL Hct 45.1 (39.0-53.0) % MCV 94.7 (80.0-100.0) fL MCH 31.7 (25.0-35.0) pg MCHC 33.5 (31.0-37.0) g/dL RDW 11.9 (11.5-15.5) % Plt Count 248 (150-450) k/uL MPV 6.6 Neutrophils % 56 % Lymphocytes % 32 % Monocytes % 8 % Eosinophils % 2 % Basophils % 1 % Neutrophils # 3.1 (1.3-7.7) k/uL Lymphocytes # 1.8 (1.0-4.8) k/uL Monocytes # 0.5 (0-1.0) k/uL Eosinophils # 0.1 (0-0.7) k/uL Basophils # 0.0 (0-0.2) k/uL PT 11.2 (10.0-12.5) sec INR 1.0 (<1.2) APTT 26.1 (22.0-30.0) sec D-Dimer <0.17 (<0.60) mg/L FEU Sodium 138 (137-145) mmol/L Potassium 4.4 (3.5-5.1) mmol/L Chloride 104 (98-107) mmol/L Carbon Dioxide 28 (22-30) mmol/L Anion Gap 6 mmol/L BUN 14 (9-20) mg/dL Creatinine 0.92 (0.66-1.25) mg/dL Est GFR (CKD-EPI)AfAm >90 (>60 ml/min/1.73 sqM) Est GFR (CKD-EPI)NonAf >90 (>60 ml/min/1.73 sqM) Glucose 87 (74-99) mg/dL Calcium 10.7 H (8.4-10.2) mg/dL Magnesium 2.0 (1.6-2.3) mg/dL Total Bilirubin 0.7 (0.2-1.3) mg/dL AST 20 (17-59) U/L ALT 16 (4-49) U/L Alkaline Phosphatase 72 (38-126) U/L Troponin I (0.000-0.034) ng/mL Total Protein 6.6 (6.3-8.2) g/dL Albumin 4.3 (3.5-5.0) g/dL 07/10/24 Range/Units 14:35 WBC (4.0-11.0) k/uL RBC (4.30-5.90) m/uL Hgb (13.0-17.5) gm/dL Hct (39.0-53.0) % MCV (80.0-100.0) fL MCH (25.0-35.0) pg MCHC (31.0-37.0) g/dL RDW (11.5-15.5) % Plt Count (150-450) k/uL MPV Neutrophils % % Lymphocytes % % Monocytes % % Eosinophils % % Basophils % % Neutrophils # (1.3-7.7) k/uL Lymphocytes # (1.0-4.8) k/uL Monocytes # (0-1.0) k/uL Eosinophils # (0-0.7) k/uL Basophils # (0-0.2) k/uL PT (10.0-12.5) sec INR (<1.2) APTT (22.0-30.0) sec D-Dimer (<0.60) mg/L FEU Sodium (137-145) mmol/L Potassium (3.5-5.1) mmol/L Chloride (98-107) mmol/L Carbon Dioxide (22-30) mmol/L Anion Gap mmol/L BUN (9-20) mg/dL Creatinine (0.66-1.25) mg/dL Est GFR (CKD-EPI)AfAm (>60 ml/min/1.73 sqM) Est GFR (CKD-EPI)NonAf (>60 ml/min/1.73 sqM) Glucose (74-99) mg/dL Calcium (8.4-10.2) mg/dL Magnesium (1.6-2.3) mg/dL Total Bilirubin (0.2-1.3) mg/dL AST (17-59) U/L ALT (4-49) U/L Alkaline Phosphatase (38-126) U/L Troponin I <0.012 (0.000-0.034) ng/mL Total Protein (6.3-8.2) g/dL Albumin (3.5-5.0) g/dL - Radiology Data Radiology results: report reviewed, image reviewed Disposition Clinical Impression: Palpitations Disposition: HOME SELF-CARE Instructions (If sedation given, give patient instructions): Heart Palpitations (ED) Additional Instructions: Return to the emergency department with any new, worsening, or concerning symp toms. Contact the tax services professional listed below for further evaluation of ongoing symptoms. Is patient prescribed a controlled substance at d/c from ED?: No Referrals: None,Stated [Primary Care Provider] - 1-2 days Severino Dale MD [STAFF PHYSICIAN] - 1-2 days Forms: PH Area PCPs Time of Disposition: 16:10
[2024-07-10 16:46] VITALS: BP 127/84; PULSE 76; RESP 18; TEMP 98.1
== END 2024-07-10 16:46 | disposition home or self-care (01) ==
LOC: EC 14:07
DX: R00.2 Palpitations
CPT/HCPCS: 36415; 71046; 80053; 83735; 84484; 85025; 85379; 85610; 85730; 93005; 96360; 96361; 99285

== ENCOUNTER 2024-08-06 03:43 | Inpatient (IN) | payer OTHER, MEDICAID ==
--- NOTE | 2024-08-06 04:51 | ED ---
General Adult HPI - General Chief complaint: Psychiatric Symptoms Stated complaint: Petition Time Seen by Provider: 08/06/24 03:55 Source: police Mode of arrival: ambulatory Limitations: no limitations - History of Present Illness Initial comments: Patient is a pleasant 19-year-old male past medical history of schizophrenia and substance abuse disorder presenting today for hallucinations and insomnia. Patient states he symptoms have been ongoing for the last 4 years however have progressively gotten worse. He has seen his primary care provider for this previously, was placed on clonipine and trazodone however stopped taking these medications when he started using drugs again. Patient states he has been clean for the last 5 months but has not been taking any medications. His hallucinations typically consist of "minor things" like the rifles in his bed sheets looking like something else. Today however he called his girlfriend because he felt like he was seeing people in his house and his girlfriend called the police out of concern for the patient. Patient also endorses auditory illusions nations like hearing a radio that is not playing. He denies that these voices there are any voices telling him to harm himself. He denies thoughts of harming himself or killing himself or harming or killing others. No access to weapons. Denies alcohol use, licit drug use or additional complaints. - Related Data Home Medications Medication Instructions Recorded Confirmed No Known Home Medications 05/04/24 08/06/24 Previous Rx's Medication Instructions Recorded FLUoxetine HCL [PROzac] 10 mg PO DAILY 15 Days #15 cap 08/10/24 Paliperidone [Invega] 3 mg PO HS 15 Days #15 tab 08/10/24 hydrOXYzine pamoate [Vistaril] 25 mg PO Q8HR PRN 15 Days #45 cap 08/10/24 traZODone HCL [Desyrel] 50 mg PO HS PRN 15 Days #15 tab 08/10/24 Allergies Allergy/AdvReac Type Severity Reaction Status Date / Time No Known Allergies Allergy Verified 08/06/24 03:46 Review of Systems ROS Statement: Those systems with pertinent positive or pertinent negative responses have been documented in the HPI. Past Medical History Additional Past Medical History / Comment(s): ADHD, depression, anxiety History of Any Multi-Drug Resistant Organisms: None Reported Past Surgical History: No Surgical Hx Reported Past Psychological History: ADD/ADHD, Anxiety, Bipolar Smoking Status: Current every day smoker, Vaper Past Alcohol Use History: None Reported Past Drug Use History: None Reported - Past Family History Mother Family Medical History: Hypertension General Exam - General Exam Comments Initial Comments: PE: CONSTITUTIONAL: No apparent distress, well appearing SKIN: Warm, dry, no jaundice, hives or petechiae EYES: Pupils are equally round, extraocular movements intact without nystagmus, clear conjunctiva, non-icteric sclera HENT: Normocephalic, atraumatic, moist mucus membranes, oropharynx clear without exudates NECK: , Full range of motion, normal appearance PULMONARY: Clear to auscultation without wheezes, rhonchi, or rales, normal excursion, no accessory muscle use and no stridor CARDIOVASCULAR: Regular rate, rhythm, normal S1 and S2. No appreciated murmurs, rubs or gallops. Strong radial pulses with intact distal perfusion. No lower extremity edema GASTROINTESTINAL: Soft, non-tender, non-distended, no palpable masses, no rebound or guarding. No hepatosplenomegaly MUSCULOSKELETAL: Extremities have no gross deformity, no edema, redness, or swelling. NEUROLOGIC:_a/o x 3, GCS 15, normal mentation and speech. Moves all extremities x 4 without motor or sensory deficit PSYCHIATRIC:_Guarded mood and affect, thought process is clear and linear, patient does appear to look suspicious on my evaluation and looks around room frequently but otherwise does no respond to internal stimuli, Denies HI/SI Limitations: no limitations Course Vital Signs 08/06/24 08/06/24 08/06/24 03:44 05:00 06:11 Temperature 98.6 F 98.5 F 98.7 F Pulse Rate 92 75 107 H Pulse Rate [ Right Sitting Pulse Oximetery ] Respiratory 18 18 18 Rate Blood Pressure 133/81 121/72 126/73 Blood Pressure [Right Arm Sitting] O2 Sat by Pulse 100 99 96 Oximetry 08/06/24 09:50 Temperature 98.2 F Pulse Rate Pulse Rate [ 79 Right Sitting Pulse Oximetery ] Respiratory 18 Rate Blood Pressure Blood Pressure 108/68 [Right Arm Sitting] O2 Sat by Pulse 97 Oximetry Medical Decision Making - Medical Decision Making Was pt. sent in by a medical professional or institution (, PA, RFID SYSTEMS ARCHITECT, urgent care, hospital, or senior living...) When possible be specific @ -No Did you speak to anyone other than the patient for history (EMS, parent, family, police, friend...)? What history was obtained from this source @ -No Did you review nursing and triage notes (agree or disagree)? Why? @ -I reviewed and agree with nursing and triage notes Reviewed old charts-patient had a stress test performed on showed a nondiagnostic stress test with excellent exercise tolerance performed for lightheadedness and dizziness Differential Diagnosis (chest pain, altered mental status, abdominal pain women, abdominal pain men, vaginal bleeding, weakness, fever, dyspnea, syncope, headache, dizziness, GI bleed, back pain, seizure, CVA, palpatations, mental health, musculoskeletal)? @Differential Mental Health Depression, anxiety, bipolar, psychosis, schizophrenia, borderline personality, situational depression, adjustment disorder, behavioral disorder,substance abuse, medication withdrawal.... This is not meant to be all-inclusive list EKG interpreted by me (3pts min.). @ -As above X-rays interpreted by me (1pt min.). @ -None done CT interpreted by me (1pt min.). @ -None done U/S interpreted by me (1pt. min.). @ -None done What testing was considered but not performed or refused? (CT, X-rays, U/S, lab s)? Why? @ -None What meds were considered but not given or refused? Why? @ -None Did you discuss the management of the patient with other professionals (professionals i.e. , PA, RFID SYSTEMS ARCHITECT, lab, RT, psych nurse, social services technician, bessemer regulator, teacher, traffic division commanding officer, renal case manager)? Give summary @Discussed with EPS RN Was smoking cessation discussed for >3mins.? @ -No Was critical care preformed (if so, how long)? @ -No Were there social determinants of health that impacted care today? How? (Homelessness, low income, unemployed, alcoholism, drug addiction, transportation, low edu. Level, literacy, decrease access to med. care, [facility], rehab)? @ -No Was there de-escalation of care discussed even if they declined (Discuss DNR or withdrawal of care, Hospice)? @ -No What co-morbidities impacted this encounter? (DM, HTN, Smoking, COPD, CAD, Cancer, CVA, ARF, Chemo, Hep., AIDS, mental health diagnosis, sleep apnea, morbid obesity)? @ -None Hx mental health diagnoses, ADHD, depression, anxiety Was patient admitted / discharged? Hospital course, mention meds given and route, prescriptions, significant lab abnormalities, going to OR and other pertinent info. @ -Hospital course admitted to psychiatric unit Patient is a pleasant 19-year-old male with past medical history of ADHD, depression, anxiety, substance abuse presenting today for visual hallucinations. Ongoing for 6 months however continuing to worsen. Today severe to the point of feeling like he was seeing other people in his house. On my evaluation patient is comfortable and well-appearing. He is calm, cooperative. He does have a guarded affect and intermittently looks around the room as if looking at something that is not there. Denies SI/HI. No focal neurologic deficits. Discussed with patient plan for EPS evaluation. Patient is agreeable with awaiting EPS evaluation. Petitioned by PD. UDS positive for amphetamines and marijuana. EPS RN evaluated patient. Recommends inpatient psychiatric care and file of clinical certification based on her findings. Patient made aware of clinical cert filed and plan for admission to [facility]. Patient agreeable with plan. Patient admitted to psychiatric unit in stable condition. Undiagnosed new problem with uncertain prognosis? @ Yes Drug Therapy requiring intensive monitoring for toxicity (Heparin, Nitro, Insulin, Cardizem)? @ -No Were any procedures done? @ -No Diagnosis/symptom? @ Hallucinations Acute, or Chronic, or Acute on Chronic? @ -acute Uncomplicated (without systemic symptoms) or Complicated (systemic symptoms)? @ -Complicated Side effects of treatment? @ -No Exacerbation, Progression, or Severe Exacerbation? @ -No Poses a threat to life or bodily function? How? (Chest pain, [place], HI, pneumonia, PE, COPD, DKA, ARF, appy, cholecystitis, CVA, Diverticulitis, Homicidal, Suicidal, threat to staff... and all critical care pts) @ Potentially, if allowed to worsen untreated - Lab Data Result diagrams: 08/10/24 12:04 08/10/24 12:04 Lab Results 08/06/24 Range/Units 05:11 Influenza Type A (PCR) Not Detected (Not Detectd) Influenza Type B (PCR) Not Detected (Not Detectd) RSV (PCR) Not Detected (Not Detectd) SARS-CoV-2 (PCR) Not Detected (Not Detectd) Disposition Clinical Impression: Hallucinations Disposition: ADMITTED IP TO THIS HOSP Condition: Stable
[2024-08-06] MEDS: clonazePAM 0.5 MG TAB PO STA (05:09)
[2024-08-06] MEDS: traZODone HCL 50 MG TAB PO ONE (05:09)
[2024-08-06] MEDS ORDERED: HALOPERIDOL LACTATE 5 MG/ML 1 ML VIAL IM PRN (08:12)
[2024-08-06] MEDS ORDERED: LORazepam 2 MG/ML INJ IM PRN (08:12)
[2024-08-06] MEDS ORDERED: ACETAMINOPHEN TAB 325 MG TAB PO PRN (08:12)
[2024-08-06] MEDS ORDERED: MAGNESIUM HYDROXIDE 2,400 MG/30 ML CUP PO PRN (08:12)
[2024-08-06] MEDS ORDERED: MAG HYDROX/AL HYDROX/SIMETH 355 ML BOTTLE PO PRN (08:12)
[2024-08-06] MEDS: NICOTINE 21MG/24HR PATCH TRANSDERM SCH (10:06)
[2024-08-06 15:28] LABS: Appearance,Urine Clear (Clear); Bilirubin,Urine Negative (Negative); Blood,Urine Negative (Negative); Color,Urine Yellow; Glucose,Urine (UA) Negative (Negative); Ketones,Urine 1+ (Negative); Leukocyte Esterase,Urine Negative (Negative); Nitrite,Urine Negative (Negative); Protein,Urine Trace (Negative); Specific Gravity,Urine 1.032 (1.001-1.035); Urobilinogen,Urine <2.0 mg/dL (<2.0)
--- NOTE | 2024-08-06 15:43 | P.HP ---
Psychiatric H&P - . H&P Date: 08/06/24 History & Physical: Allergies Allergy/AdvReac Type Severity Reaction Status Date / Time No Known Allergies Allergy Verified 08/06/24 03:46 Vital Signs Temp 98.2 F 08/06/24 09:50 Pulse 70 08/06/24 10:53 Resp 18 08/06/24 10:53 BP 110/65 08/06/24 10:53 Pulse Ox 99 08/06/24 10:53 FiO2 Intake & Output 08/05/24 08/06/24 08/06/24 18:59 06:59 18:59 Weight 72.575 kg 74.843 kg Laboratory Last Values Urine Color Yellow 08/06/24 14:50 Urine Appearance Clear (Clear) 08/06/24 14:50 Urine pH 6.0 (5.0-8.0) 08/06/24 14:50 Ur Specific [place] 1.032 (1.001-1.035) 08/06/24 14:50 Urine Protein Trace (Negative) H 08/06/24 14:50 Urine Glucose (UA) Negative (Negative) 08/06/24 14:50 Urine Ketones 1+ (Negative) H 08/06/24 14:50 Urine Blood Negative (Negative) 08/06/24 14:50 Urine Nitrite Negative (Negative) 08/06/24 14:50 Urine Bilirubin Negative (Negative) 08/06/24 14:50 Urine Urobilinogen <2.0 mg/dL (<2.0) 08/06/24 14:50 Ur Leukocyte Esterase Negative (Negative) 08/06/24 14:50 Influenza Type A (PCR) Not Detected (Not Detectd) 08/06/24 05:11 Influenza Type B (PCR) Not Detected (Not Detectd) 08/06/24 05:11 RSV (PCR) Not Detected (Not Detectd) 08/06/24 05:11 SARS-CoV-2 (PCR) Not Detected (Not Detectd) 08/06/24 05:11 08/06/24 15:37 IDENTIFYING DATA: Patient is a 19-year-old male, he currently is living in a sober living facility, he has no kids, he is single, he is working as a tax services manager. HPI: Patient presented to the hospital yesterday on 08/06. He apparently was brought in for hallucinations, insomnia and apparently he stopped taking his medications. He is brought in by police. Patient was agreeable to speak to mortgage underwriter today in the office. He claims that he is a "insomniac". Claims that he is having thoughts of breaking down. Claims that he was feeling confused and started hallucinating due to being awake for so long. States that he relapsed on methamphetamine about 3 to 4 days ago has been using heavily. Claims that he was also seeing people in the house and "freaked out". States that he alerted his girlfriend who called the police. Claims that he is also hearing voices and believes that the radio was talking to him telling him to harm himself. Was endorsing anxiety and depression. Denies any paranoia at this time. Claims that he relapsed recently using methamphetamine and also alcohol claims that his sleep is then poor appetite has been poor. Patient denies any current suicidal or homicidal ideations intent or plan. At this time patient denies any current auditory or visual hallucinations. Patient denies any flight of ideas racing thoughts and increased in goal directed behavior. Patient admits to using methamphetamine recent relapse, alcohol occasionally, cigarettes daily. Denying any withdrawal symptoms at this time or any history of withdrawals. PAST PSYCHIATRIC HISTORY: Patient has a history of polysubstance abuse, depression and anxiety. Patient denies being on any psychiatric medications. He claims that he was last psychiatrically admitted at [facility] in February 2019. Patient denies any psychiatric outpatient follow-up. Claims that he has a history of cutting himself and also attempted to hang himself in the past. PMH: as per ER note ALLERGIES: as per EMR CHEMICAL DEPENDENCY HISTORY: as per HPI FAMILY PSYCHIATRIC/SUBSTANCE USE HISTORY: States that there is significant for depression and anxiety in his family. SOCIAL HISTORY: Patient was born and raised in [facility]. Claims that he completed his GED. States that [facility] and served time for drug-related charges and also stolen property. States that he is currently living in a sober living facility, he has no kids, he is working as a tax services manager. MENTAL STATUS EXAM: General Appearance: Patient appears to be thin, tall, longer hair, several tattoos, stated age is alert, attempts to cooperate. Patient appears to have poor hygiene and grooming. Behavior: Patient is seated without any agitated behavior. Poor eye contact Speech: Patient's speech is fluent and nonpressured. Soft tone Mood/Affect: Patient reports their mood is depressed and anxious, affect is congruent and constricted. Suicidality/Homicidality: Patient denies having any homicidal ideation intent or plan. Denies any suicidal ideations intent or plan Perceptions: Patient denies any visual hallucinations and denies any auditory hallucinations Though content/process: There is no evidence of any delusional thought content and thought process is linear and goal-directed. Memory and concentration: AOX3, grossly intact for the purposes of this session. Can spell "WORLD" backwards Judgment and insight: Poor STRENGTHS/WEAKNESSES: strength is that patient is resilient. 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 Patient has signed adult voluntary form and medication consent and is placed in patient's chart. -Medications : Zoloft 50 mg nightly for mood/anxiety, Invega p.o. 3 mg nightly for mood stabilization/psychosis, trazodone 50 mg nightly as needed for insomnia/mood. -Ativan and Haldol PRN for agitation/aggression -CIWA protocol with Ativan PRN for ETOH withdrawal. -Patient was counselled on substance abuse and desired to cut back on use. She wants to return back to the sober living once he is discharged from the hospital. -Patient was informed of the risks, benefits and side effects of the medication and patient verbally consented to taking the medications. Patient signed med consent form and was placed in chart. -Internal Medicine consult to perform medical evaluation and physical. -NRT -nicotine patch -SW on board for discharge planning. Encourage patient to participate in groups to work on coping skills.
[2024-08-06 16:08] LABS: Amphetamine Screen,Urine Detected (NotDetected); Barbiturate Screen,Urine Not Detected (NotDetected); Benzodiazepines Screen,Urine Not Detected (NotDetected); Cocaine Screen,Urine Not Detected (NotDetected); Methadone Screen, Urine Not Detected (NotDetected); Opiate Screen,Urine Not Detected (NotDetected); Oxycodone Screen, Urine Not Detected (NotDetected); Phencyclidine Screen,Urine Not Detected (NotDetected); Tricyclic Antidepressant,Urine Not Detected (NotDetected); Urn Cannabinoid Scrn Detected (NotDetected)
[2024-08-06] MEDS: LORazepam 1 MG TAB PO PRN (18:11)
[2024-08-06] MEDS: IBUPROFEN 600 MG TAB PO PRN (18:12)
[2024-08-06] MEDS: haloperidoL 5 MG TAB PO PRN (18:19)
[2024-08-06] MEDS: NICOTINE GUM (POLACRILEX) 2 MG GUM BUCCAL PRN (18:51)
[2024-08-06] MEDS: traZODone HCL 50 MG TAB PO PRN (20:39)
[2024-08-06] MEDS: SERTRALINE 50 MG TAB PO SCH (20:39)
[2024-08-06] MEDS: PALIPERIDONE 3 MG TAB.ER.24 PO SCH (20:39)
--- NOTE | 2024-08-07 04:31 | P.CONS ---
History of Present Illness - Reason for Consult Consult date: 08/06/24 - History of Present Illness The patient is a 19-year-old male with a PMH of schizophrenia, polysubstance and alcohol abuse who had presented to the emergency room for hallucinations and insomnia. Patient was admitted to the mental health unit where he was seen and evaluated. Patient reports that he had decided to come to the emergency room after he had relapsed on his methamphetamine use as well as drinking heavily. Reports that he rarely drinks but that when he does he drinks as much as a pint at a time. He reports that he last used methamphetamine and drank this past . He reported feeling well at the time of interview and had no additional complaints. Denied experiencing chest discomfort, shortness of breath, fever, chills, cough, nausea, vomiting, abdominal pain, diarrhea. Denied any additional illicit substance use. Patient denied history of alcohol withdrawal or delirium tremens. Urine toxicology for the patient was positive for methamphetamine and marijuana with respiratory viral panel negative. Review of systems: Pertinent positives and negatives as discussed in HPI, a complete review of systems was performed and all other systems are negative. Physical examination: General: non toxic, no distress, appears at stated age, normal weight Derm: no unusual rashes/lesions, no unusual ecchymoses, warm, dry Head: atraumatic, normocephalic, symmetric Eyes: EOMI, no lid lag, anicteric sclera ENT: Nose and ears atraumatic, no thrush, no pharyngeal erythema Neck: trachea midline, supple Mouth: no lip lesion, mucus membranes moist Cardiovascular: S1S2 reg, no murmur, no edema Lungs: CTA bilateral, no rhonchi, no rales , no accessory muscle use Abdominal: soft, nontender to palpation, no guarding Ext: no gross muscle atrophy, no contractures, Neuro: No gross focal neuro deficits noted Psych: Alert, oriented, appropriate affect Assessment: Polysubstance abuse including methamphetamine and marijuana Alcohol abuse Hallucinations with history of schizophrenia Imaging: None performed Data Review: Urine toxicology for the patient was positive for methamphetamine and marijuana with respiratory viral panel negative. Plan: Strongly advised patient on the importance of cessation from substance use Monitor for signs of alcohol withdrawal Initiate Thiamine po Defer management of schizophrenia to the primary psychiatry service Thank you for allowing us to participate in the care of this patient. We will follow peripherally. Do not hesitate to contact us with questions. Someone can be reached from the [facility] hospitalist group at all hours of the day at [phone]. Past Medical History Additional Past Medical History / Comment(s): ADHD, depression, anxiety History of Any Multi-Drug Resistant Organisms: None Reported Past Surgical History: No Surgical Hx Reported Past Psychological History: ADD/ADHD, Anxiety, Bipolar Smoking Status: Current every day smoker Past Alcohol Use History: None Reported Additional Past Alcohol Use History / Comment(s): History of heavy ETOH. sober x 8 mo. Past Drug Use History: Methamphetamine Additional Drug Use History / Comment(s): Admits to snorting and injecting meth 3 days ago - Past Family History Mother Family Medical History: Hypertension Medications and Allergies Home Medications Medication Instructions Recorded Confirmed Type No Known Home Medications 05/04/24 08/06/24 History Allergies Allergy/AdvReac Type Severity Reaction Status Date / Time No Known Allergies Allergy Verified 08/06/24 03:46 Physical Exam Vitals: Vital Signs Temp Pulse Pulse Pulse Resp BP BP 08/06/24 18:28 95 18 108/59 08/06/24 10:53 70 18 110/65 08/06/24 09:50 98.2 F 79 18 08/06/24 06:11 98.7 F 107 H 18 126/73 08/06/24 05:00 98.5 F 75 18 121/72 08/06/24 03:44 98.6 F 92 18 133/81 BP Pulse Ox 08/06/24 18:28 100 08/06/24 10:53 99 08/06/24 09:50 108/68 97 08/06/24 06:11 96 08/06/24 05:00 99 08/06/24 03:44 100 Intake and Output 08/06/24 08/06/24 08/06/24 06:59 14:59 22:59 Other: Weight 72.575 kg 74.843 kg 73.8 kg Results Labs: Abnormal Lab Results - Last 24 Hours (Table) 08/06/24 Range/Units 14:50 Urine Protein Trace H (Negative) Urine Ketones 1+ H (Negative) Ur Amphetamines Screen Detected H (NotDetected) U Methamphetamines Scrn Detected H (NotDetected) U Marijuana (THC) Screen Detected H (NotDetected)
[2024-08-07] MEDS: THIAMINE 100 MG TAB PO SCH (09:58)
[2024-08-07 10:42] LABS: Basophils % (A) 1 %; Eosinophils # (A) 0.1 k/uL (0-0.7); Eosinophils % (A) 2 %; HCT 45.6 % (39.0-53.0); HGB 15.1 gm/dL (13.0-17.5); Lymphocytes # (A) 1.5 k/uL (1.0-4.8); Lymphocytes % (A) 30 %; MCH 31.5 pg (25.0-35.0); MCHC 33.1 g/dL (31.0-37.0); MCV 95.2 fL (80.0-100.0); Mean Platelet Volume 6.7; Monocytes # (A) 0.5 k/uL (0-1.0); Monocytes % (A) 10 %; Neutrophils # (A) 2.5 k/uL (1.3-7.7); Neutrophils % (A) 53 %; Platelet Count 246 k/uL (150-450); RBC 4.79 m/uL (4.30-5.90); RDW 11.9 % (11.5-15.5); WBC 4.8 k/uL (4.0-11.0)
[2024-08-07 11:01] LABS: ALT 23 U/L (4-49); AST 40 U/L (17-59); African American GFR (CKD) >90 (>60 ml/min/1.73 sqM); Albumin 4.5 g/dL (3.5-5.0); Alkaline Phosphatase 58 U/L (38-126); Anion Gap 4 mmol/L; Bilirubin, Delta 0.2 mg/dL (0.0-0.2); Bilirubin,Unconjugated 1.3 mg/dL (0.0-1.1); Blood Urea Nitrogen 24 mg/dL (9-20); Calcium 10.9 mg/dL (8.4-10.2); Carbon Dioxide 26 mmol/L (22-30); Chloride 105 mmol/L (98-107); Glucose 97 mg/dL (74-99); Non-African American GFR(CKD) >90 (>60 ml/min/1.73 sqM); Potassium 4.6 mmol/L (3.5-5.1); Sodium 135 mmol/L (137-145); Total Bilirubin 1.5 mg/dL (0.2-1.3)
--- NOTE | 2024-08-07 13:28 | P.PN ---
Progress Note - Text Progress Note Date: 08/07/24 Follow-up Mediation Review Chief Complaint: I was having a nervous breakdown. Subjective: The patient noted that he was sleep deprived for days. He has had nervous breakdowns after prolonged insomnia. He was hearing voices and freaking out, as per patient. The patients girlfriend called that police and he was brought to the hospital . Beside hearing voices, the patient was very confused, anxious and hearing voices. Leading questions: The patient admitted to Depression and Anxiety. Denied SI or HI. Admitted to hearing voices. Sleep and Appetite: Impaired. Change in family/ living/job/financial/daily routine: No change. Change in medical condition: No change. Change in medications: No change. Side effects from Medications: None. . Objective- MSE: Alert and attentive. Orientation times three. Dressed and Groomed: Appropriately. Pleasant and cooperative. Psychomotor Activity: Normal. Speech: Normal in tone, quality, and quantity. Mood: Depressed and anxious. Affect: Consistent with mood. SI or HI: None. Perceptual disturbance: Hearing voices.. Thought Content: No paranoia or other delusional thinking noted. Thought Process: Normal. Cognition: Intact Judgment and Insight: Poor. AIMS: Normal. Labs: No new labs. Diagnosis: Plan and Recommendations: Continue current Medications. Monitor MS and side effects of medications and adjust medications accordingly. Provide supportive psychotherapy. The patient provided psychoeducation and advised The patient provided Substance abuse counseling. Smoke cessation therapy. The patient to attend guthrie activities. Medication Consent with explanation of risk/benefits and side effects: Explained and obtained.
[2024-08-07 15:27] LABS: Chol/HDL Ratio 2.42 Ratio; LDL Cholesterol,Calculated 70.9 mg/dL (0.0-131.0)
[2024-08-08] MEDS ORDERED: hydrOXYzine HCL 50 MG/ML 1 ML VIAL IM PRN (11:22)
--- NOTE | 2024-08-08 12:31 | P.PN ---
Progress Note - Text Progress Note Date: 08/08/24 Follow-up Mediation Review Chief Complaint: I am feeling better. Subjective: The patient noted that he has been feeling very tired most of the time. He was wondering it was medications. The patient was explained that it is due to him coming off the stimulants and partially due to medications. Asked him to avoid taking Ativan. Suggested to reduce Ativan, the patient understood and consented. The patient is not having any hallucinations. He wanted his Zoloft changed to Prozac because he felt better on Prozac in the past. Overall, the patient is feeling much better than before. Leading questions: The patient admitted to mild Depression and Anxiety. Denied SI or HI. Denied hearing voices, paranoia, or any other delusional thinking. Admitted to hearing voices. Sleep and Appetite: Impaired. Change in family/ living/job/financial/daily routine: No change. Change in medical condition: No change. Change in medications: No change. Side effects from Medications: None. . Objective- MSE: Alert and attentive. Orientation times three. Dressed and Groomed: Appropriately. Pleasant and cooperative. Psychomotor Activity: Normal. Speech: Normal in tone, quality, and quantity. Mood: Depressed and anxious. Affect: Consistent with mood. SI or HI: None. Perceptual disturbance: None. Thought Content: No paranoia or other delusional thinking noted. Thought Process: Normal. Cognition: Intact Judgment and Insight: Poor. AIMS: Normal. Labs: No new labs. Diagnosis: Plan and Recommendations: Continue current Medications. D/c Zoloft. Prozac 10 mg po daily. One dose stat. Hydroxyzine 25 mg po q8hrs. Monitor MS and side effects of medications and adjust medications accordingly. Provide supportive psychotherapy. The patient provided psychoeducation and advised The patient provided Substance abuse counseling. Smoke cessation therapy. The patient to attend guthrie activities. Medication Consent with explanation of risk/benefits and side effects: Explained and obtained.
[2024-08-08] MEDS: hydrOXYzine pamoate 25 MG CAP PO PRN (13:57)
[2024-08-09] MEDS: FLUoxetine HCL 10 MG CAP PO SCH (09:10)
--- NOTE | 2024-08-09 15:52 | P.PN ---
Progress Note - Text Progress Note Date: 08/09/24 Follow-up Mediation Review Chief Complaint: I am feeling better Subjective: The patient noted that he has been feeling better but still feels somewhat foggy and tired. He noted that he has been sleeping a lot. Overall, the patient is feeling much better than before. Leading questions: The patient admitted to mild Depression and Anxiety. Denied SI or HI. Denied hearing voices, paranoia, or any other delusional thinking. Admitted to hearing voices. Sleep and Appetite: Sleep Impaired. Appetite fine. Change in family/ living/job/financial/daily routine: No change. Change in medical condition: No change. Change in medications: No change. Side effects from Medications: None. . Objective- MSE: Alert and attentive. Orientation times three. Dressed and Groomed: Appropriately. Pleasant and cooperative. Psychomotor Activity: Normal. Speech: Normal in tone, quality, and quantity. Mood: Depressed and anxious. Affect: Consistent with mood. SI or HI: None. Perceptual disturbance: None. Thought Content: No paranoia or other delusional thinking noted. Thought Process: Normal. Cognition: Intact Judgment and Insight: Poor. AIMS: Normal. Labs: No new labs. Diagnosis: Plan and Recommendations: Continue current Medications. Monitor MS and side effects of medications and adjust medications accordingly. Provide supportive psychotherapy. The patient provided psychoeducation and advised The patient provided Substance abuse counseling. Smoke cessation therapy. The patient to attend guthrie activities. Medication Consent with explanation of risk/benefits and side effects: Explained and obtained.
[2024-08-10 03:48] LABS: Urine Alcohol Negative (Negative); Urine Barbiturate Negative (Negative); Urine Cocaine Negative (Negative); Urine Methadone Negative (Negative); Urine Opiates Negative (Negative); Urine Phencyclidine Negative (Negative)
[2024-08-10 11:31] VITALS: BP 118/71; PULSE 66; RESP 17; TEMP 97.1
[2024-08-10 12:24] LABS: Basophils % (A) 0 %; Eosinophils # (A) 0.1 k/uL (0-0.7); Eosinophils % (A) 2 %; HCT 43.6 % (39.0-53.0); HGB 14.1 gm/dL (13.0-17.5); Lymphocytes # (A) 1.2 k/uL (1.0-4.8); Lymphocytes % (A) 27 %; MCHC 32.2 g/dL (31.0-37.0); Mean Platelet Volume 6.6; Monocytes # (A) 0.4 k/uL (0-1.0); Monocytes % (A) 8 %; Neutrophils # (A) 2.6 k/uL (1.3-7.7); Neutrophils % (A) 59 %; Platelet Count 248 k/uL (150-450); RBC 4.54 m/uL (4.30-5.90); RDW 11.7 % (11.5-15.5); WBC 4.3 k/uL (4.0-11.0)
[2024-08-10 12:36] LABS: ALT 19 U/L (4-49); AST 22 U/L (17-59); African American GFR (CKD) >90 (>60 ml/min/1.73 sqM); Albumin 4.5 g/dL (3.5-5.0); Alkaline Phosphatase 73 U/L (38-126); Anion Gap 4 mmol/L; Blood Urea Nitrogen 13 mg/dL (9-20); Calcium 10.9 mg/dL (8.4-10.2); Carbon Dioxide 29 mmol/L (22-30); Chloride 105 mmol/L (98-107); Glucose 91 mg/dL (74-99); Non-African American GFR(CKD) >90 (>60 ml/min/1.73 sqM); Potassium 4.4 mmol/L (3.5-5.1); Sodium 138 mmol/L (137-145); Total Bilirubin 0.5 mg/dL (0.2-1.3); Total Protein 6.9 g/dL (6.3-8.2)
--- NOTE | 2024-08-10 15:03 | P.DS ---
Providers Date of admission: 08/06/24 07:53 Expected date of discharge: 08/10/24 Attending physician: Jose Torres MD Consults: 08/06/24 08:12 Consult Physician Routine Consulting Provider: Marlin Nichole Consult Reason/Comments: H & P w/medical management Do you want consulting provider notified?: Yes Primary care physician: Stated None - Discharge Diagnosis(es) (1) Unspecified psychosis Current Visit: Yes Status: Acute Priority: High (2) Depression, unspecified Current Visit: Yes Status: Acute Priority: Medium (3) Methamphetamine abuse Current Visit: Yes Status: Acute Priority: High (4) Alcohol abuse Current Visit: Yes Status: Acute Priority: Medium Hospital Course: Discharge Summary HPI: IDENTIFYING DATA: Patient is a 19-year-old male, he currently is living in a sober living facility, he has no kids, he is single, he is working as a shingles roofer. HPI: Patient presented to the hospital yesterday on 08/06. He apparently was brought in for hallucinations, insomnia and apparently he stopped taking his medications. He is brought in by police. Patient was agreeable to speak to instructional writer today in the office. He claims that he is a "insomniac". Claims that he is having thoughts of breaking down. Claims that he was feeling confused and started hallucinating due to being awake for so long. States that he relapsed on methamphetamine about 3 to 4 days ago has been using heavily. Claims that he was also seeing people in the house and "freaked out". States that he alerted his girlfriend who called the police. Claims that he is also hearing voices and believes that the radio was talking to him telling him to harm himself. Was endorsing anxiety and depression. Denies any paranoia at this time. Claims that he relapsed recently using methamphetamine and also alcohol claims that his sleep is then poor appetite has been poor. Patient denies any current suicidal or homicidal ideations intent or plan. At this time patient denies any current auditory or visual hallucinations. Patient denies any flight of ideas racing thoughts and increased in goal directed behavior. Patient admits to using methamphetamine recent relapse, alcohol occasionally, cigarettes daily. Denying any withdrawal symptoms at this time or any history of withdrawals. PAST PSYCHIATRIC HISTORY: Patient has a history of polysubstance abuse, depression and anxiety. Patient denies being on any psychiatric medications. He claims that he was last psychiatrically admitted at [facility] in February 2019. Patient denies any psychiatric outpatient follow-up. Claims that he has a history of cutting himself and also attempted to hang himself in the past. PMH: as per ER note ALLERGIES: as per EMR CHEMICAL DEPENDENCY HISTORY: as per HPI Hospital Course: After admission, the patient was involved in pharmacotherapy, guthrie milieu, and individual psychodynamic psychotherapy. The patient was started Invega, Prozac, Vistaril, and Trazodone . The dose was titrated to obtain the desire effects. The patient tolerated medications well without any side effects. The patient was also involved in guthrie activities. The patient attended the groups and participated well. The patient interacted with peers and staff well. The patient slowly started showing improvement. The hospital course was uneventful. The patient symptoms of depression, suicidal and homicidal ideations abated. The psychosis improved. The patient was stable to be discharged to out-patient care. The patient did not have any guns or weapons in possession at home. MSE: General Appearance: Patient appears to be thin, tall, longer hair, several tattoos, stated age is alert, attempts to cooperate. Patient appears to have poor hygiene and grooming. Behavior: Patient is seated without any agitated behavior. Poor eye contact Speech: Patient's speech is fluent and nonpressured. Soft tone Mood/Affect: Patient reports their mood is depressed and anxious, affect is congruent and constricted. Suicidality/Homicidality: Patient denies having any homicidal ideation intent or plan. Denies any suicidal ideations intent or plan Perceptions: Patient denies any visual hallucinations and denies any auditory hallucinations Though content/process: There is no evidence of any delusional thought content and thought process is linear and goal-directed. Memory and concentration: AOX3, grossly intact for the purposes of this session. Can spell "WORLD" backwards Judgment and insight: Poor Diagnosis: Psychosis unspecified History of depressive disorder Methamphetamine use disorder Alcohol abuse Plan: The patient to be discharged today. The patient has attained good improvement since admission. He is stable to be followed as an outpatient. The patient is not suicidal or Homicidal. He does not pose any harm to self or others. The patient remains at a greater risk of self-harm or harm to others than general population on a chronic basis due to psychiatric illness and substance abuse. The patient will continue taking following medication post discharge. The importance of medication compliance and maintaining regular appointments at psychiatric out-pt and PCP clinic was explained and encouraged. The patient was also advised to seek alcohol counseling and attend AA/NA meetings. The understood and agreed with the recommendations. s iron worker to arrange for and conduct family meeting to ensure safety upon discharge and answer any questions. The psychiatric social worker supervisor to arrange for patients follow-up appointments at [facility] for psychiatric care along with follow-up with PCP. The patient provided psychoeducation. Advised to call 911 or go to nearest ED or call this hospital in case of acute worsening of symptomatology, severe side effects or having suicidal, homicidal thoughts and feeling unsafe at home. Patient Condition at Discharge: Stable Plan - Discharge Summary Discharge Rx Participant: No New Discharge Prescriptions: New Paliperidone [Invega] 3 mg PO HS 15 Days #15 tab FLUoxetine HCL [PROzac] 10 mg PO DAILY 15 Days #15 cap traZODone HCL [Desyrel] 50 mg PO HS PRN 15 Days #15 tab PRN Reason: Insomnia hydrOXYzine pamoate [Vistaril] 25 mg PO Q8HR PRN 15 Days #45 cap PRN Reason: Anxiety No Action No Known Home Medications Discharge Medication List No Known Home Medications 05/04/24 [History] FLUoxetine HCL [PROzac] 10 mg PO DAILY 15 Days #15 cap 08/10/24 [Rx] Paliperidone [Invega] 3 mg PO HS 15 Days #15 tab 08/10/24 [Rx] hydrOXYzine pamoate [Vistaril] 25 mg PO Q8HR PRN 15 Days #45 cap 08/10/24 [Rx] traZODone HCL [Desyrel] 50 mg PO HS PRN 15 Days #15 tab 08/10/24 [Rx] Follow up Appointment(s)/Referral(s): [facility] [Outside] - 08/11/24 11:00 am (with Angela) [facility] [NON-STAFF] - 1 Week Patient Instructions/Handouts: How to Stop Smoking (ED), Depression (DC), Methamphetamine Abuse (DC), Psychotic Disorder (DC) Activity/Diet/Wound Care/Special Instructions: [facility] Discharge Info Avoid the use of street drugs and alcohol. Take all medications as prescribed. When you are in need of refills on your medications, please contact your outpatient medical provider and/or outpatient psychiatrist. Please go to your scheduled outpatient appointments for aftercare treatment. If symptoms return or become worse, call the crisis line at or and/or visit the nearest emergency room for assistance. National Suicide and Crisis Lifeline - call or text 138. Discharge Disposition: HOME SELF-CARE
== END 2024-08-10 14:11 | disposition home or self-care (01) | DRG 885 ==
LOC: EC 03:43 → 3MHU 07:53
PROVIDERS: ADMIT Psychiatry & Neurology Psychiatry; ATTEND Psychiatry & Neurology Psychiatry
DX: F29 Unspecified psychosis not due to a substance or known physiological condition (principal); F10.10 Alcohol abuse, uncomplicated; F12.10 Cannabis abuse, uncomplicated; F15.10 Other stimulant abuse, uncomplicated; F17.200 Nicotine dependence, unspecified, uncomplicated; F20.9 Schizophrenia, unspecified; F31.9 Bipolar disorder, unspecified; F41.9 Anxiety disorder, unspecified; G47.00 Insomnia, unspecified; Z65.3 Problems related to other legal circumstances; Z72.820 Sleep deprivation; Z91.128 Patient's intentional underdosing of medication regimen for other reason; Z91.52 Personal history of nonsuicidal self-harm
CPT/HCPCS: 80053; 80061; 80306; 81003; 82248; 83036; 84443; 85025; 87636; 99285

== ENCOUNTER 2024-10-12 00:53 | Emergency (ER) | payer OTHER ==
[2024-10-12] MEDS: SODIUM CHLORIDE 0.9% 1,000 ML IV ONE (01:08)
[2024-10-12 01:25] LABS: Basophils # (A) 0.1 k/uL (0-0.2); Basophils % (A) 0 %; Eosinophils % (A) 0 %; HCT 47.1 % (39.0-53.0); HGB 15.8 gm/dL (13.0-17.5); Lymphocytes # (A) 1.8 k/uL (1.0-4.8); Lymphocytes % (A) 11 %; MCH 32.1 pg (25.0-35.0); MCHC 33.5 g/dL (31.0-37.0); MCV 95.8 fL (80.0-100.0); Mean Platelet Volume 6.9; Monocytes # (A) 1.1 k/uL (0-1.0); Monocytes % (A) 6 %; Neutrophils # (A) 13.5 k/uL (1.3-7.7); Neutrophils % (A) 81 %; Platelet Count 317 k/uL (150-450); RBC 4.92 m/uL (4.30-5.90); RDW 12.2 % (11.5-15.5); WBC 16.6 k/uL (4.0-11.0)
[2024-10-12 01:52] LABS: African American GFR (CKD) >90 (>60 ml/min/1.73 sqM); Alcohol <10 mg/dL; Anion Gap 5 mmol/L; Blood Urea Nitrogen 12 mg/dL (9-20); Calcium 10.6 mg/dL (8.4-10.2); Carbon Dioxide 26 mmol/L (22-30); Chloride 102 mmol/L (98-107); Glucose 106 mg/dL (74-99); Non-African American GFR(CKD) >90 (>60 ml/min/1.73 sqM); Sodium 133 mmol/L (137-145)
[2024-10-12 02:22] LABS: Potassium 4.6 mmol/L (3.5-5.1)
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
[2024-10-12 05:43] LABS: Amphetamine Screen,Urine Not Detected (NotDetected); Barbiturate Screen,Urine Not Detected (NotDetected); Benzodiazepines Screen,Urine Not Detected (NotDetected); Cocaine Screen,Urine Detected (NotDetected); Methadone Screen, Urine Not Detected (NotDetected); Opiate Screen,Urine Not Detected (NotDetected); Oxycodone Screen, Urine Not Detected (NotDetected); Phencyclidine Screen,Urine Not Detected (NotDetected); Tricyclic Antidepressant,Urine Not Detected (NotDetected); Urn Cannabinoid Scrn Not Detected (NotDetected)
[2024-10-12 06:17] VITALS: BP 112/57; PULSE 87; RESP 13; TEMP 98
== END 2024-10-12 06:17 | disposition home or self-care (01) ==
LOC: EC 00:53
DX: R00.2 Palpitations (principal); R00.0 Tachycardia, unspecified; F17.290 Nicotine dependence, other tobacco product, uncomplicated
CPT/HCPCS: 36415; 93005; 80048; 85025; 80306; 99285; 96360; G0480; 80320

== ENCOUNTER 2024-10-13 18:23 | Emergency (ER) | payer OTHER ==
[2024-10-13 18:28] VITALS: TEMP 98.3
[2024-10-13 19:01] VITALS: RESP 18
[2024-10-13 19:28] LABS: Basophils # (A) 0.1 k/uL (0-0.2); Basophils % (A) 1 %; Eosinophils # (A) 0.2 k/uL (0-0.7); Eosinophils % (A) 2 %; HCT 46.4 % (39.0-53.0); HGB 15.7 gm/dL (13.0-17.5); Lymphocytes # (A) 1.2 k/uL (1.0-4.8); Lymphocytes % (A) 13 %; MCH 32.6 pg (25.0-35.0); MCHC 33.8 g/dL (31.0-37.0); MCV 96.5 fL (80.0-100.0); Mean Platelet Volume 6.2; Monocytes # (A) 0.5 k/uL (0-1.0); Monocytes % (A) 5 %; Neutrophils % (A) 78 %; Platelet Count 287 k/uL (150-450); RBC 4.81 m/uL (4.30-5.90); RDW 12.1 % (11.5-15.5)
--- NOTE | 2024-10-13 19:31 | XR ---
EXAMINATION TYPE: XR chest 2V DATE OF EXAM: 10/13/2024 7:11 PM COMPARISON: 07/10/2024 CLINICAL INDICATION: Male, 19 years old with history of Chest Pain, , TECHNIQUE: PA and lateral views FINDINGS: Heart normal size. Aorta and pulmonary vasculature within normal limits. No consolidation or pleural effusion. IMPRESSION: No acute cardiopulmonary process. [facility], , 10/13/2024 7:29 PM
[2024-10-13 19:38] LABS: ALT 17 U/L (4-49); AST 20 U/L (17-59); African American GFR (CKD) >90 (>60 ml/min/1.73 sqM); Albumin 5.4 g/dL (3.5-5.0); Alkaline Phosphatase 85 U/L (38-126); Anion Gap 10 mmol/L; Blood Urea Nitrogen 11 mg/dL (9-20); Calcium 11.2 mg/dL (8.4-10.2); Carbon Dioxide 30 mmol/L (22-30); Chloride 100 mmol/L (98-107); Glucose 90 mg/dL (74-99); Magnesium 2.4 mg/dL (1.6-2.3); Non-African American GFR(CKD) >90 (>60 ml/min/1.73 sqM); Sodium 140 mmol/L (137-145); Total Bilirubin 0.6 mg/dL (0.2-1.3); Total Protein 8.8 g/dL (6.3-8.2)
[2024-10-13 20:02] LABS: Partial Thromboplastin Time 26.6 sec (22.0-30.0); Prothrombin Time 10.7 sec (10.0-12.5)
[2024-10-13 20:34] VITALS: BP 119/85; PULSE 82
[2024-10-13] MEDS: ASPIRIN 81 MG PO STA (20:34)
[2024-10-13] MEDS: SODIUM CHLORIDE 0.9% 1,000 ML IV STA (20:34)
--- NOTE | 2024-10-13 20:38 | ED ---
General Adult HPI - General Chief complaint: Chest Pain Stated complaint: Chest Pain Time Seen by Provider: 10/13/24 18:55 Source: patient, EMS, RN notes reviewed, old records reviewed Mode of arrival: EMS Limitations: no limitations - History of Present Illness Initial comments: Is a 19-year-old male who presents emergency department complaining of chest pain. States it started at about 4 PM. Has since nearly resolved. Uses cocaine as well as other illicit substances on a regular basis. States the pain is sharp, substernal. States it is originally about a 7 out of 10 and is now a 1 out of 10. No history of cardiac issues. Patient does have mental health issues and is on some medications for that. Denies any shortness of breath, nausea, vomiting. States the pain was substernal with no radiation. States he was sweaty when it started which was immediately after using cocaine however no other symptoms. Presents for further evaluation at this time. - Related Data Home Medications Medication Instructions Recorded Confirmed No Known Home Medications 05/04/24 08/06/24 Previous Rx's Medication Instructions Recorded FLUoxetine HCL [PROzac] 10 mg PO DAILY 15 Days #15 cap 08/10/24 Paliperidone [Invega] 3 mg PO HS 15 Days #15 tab 08/10/24 hydrOXYzine pamoate [Vistaril] 25 mg PO Q8HR PRN 15 Days #45 cap 08/10/24 traZODone HCL [Desyrel] 50 mg PO HS PRN 15 Days #15 tab 08/10/24 Allergies Allergy/AdvReac Type Severity Reaction Status Date / Time No Known Allergies Allergy Verified 10/13/24 18:28 Review of Systems ROS Statement: Those systems with pertinent positive or pertinent negative responses have been documented in the HPI. Review of Systems: CONST: Denies fever EYES: Denies blurry vision ENT: Denies nasal congestion C/V: Denies current Chest pain RESP: Denies shortness of breath GI: Denies abdominal pain : Denies dysuria SKIN: Denies rash. MSK: Denies joint pain. NEURO: Denies headache ROS Other: All systems not noted in ROS Statement are negative. Past Medical History Additional Past Medical History / Comment(s): ADHD, depression, anxiety, previ ous meth user clean 6 month 10/08 History of Any Multi-Drug Resistant Organisms: None Reported Past Surgical History: No Surgical Hx Reported Past Psychological History: ADD/ADHD, Anxiety, Bipolar Smoking Status: Current every day smoker, Vaper Past Alcohol Use History: Occasional Past Drug Use History: Cocaine, Marijuana, Methamphetamine, Opiates - Past Family History Mother Family Medical History: Hypertension General Exam - General Exam Comments Initial Comments: General: Appears in no acute distress. HEAD: Normal with no signs of head trauma. EYES: PERRLA, EOMI, conjunctiva normal, no discharge. ENT: Hearing grossly intact, normal oropharynx. RESPIRATORY: Clear breath sounds bilaterally. No wheezes, rales, or rhonchi. C/V: Regular rate and rhythm. S1 and S2 auscultated, no edema, peripheral pulses 2+ and intact throughout ABD: Abd is soft, nontender, nondistended EXT: No obvious deformity. SKIN: No rashes or lesions observed on exposed skin. NEURO: Oriented x 4. Limitations: no limitations Course Vital Signs 10/13/24 10/13/24 10/13/24 18:25 18:59 20:33 Temperature 98.3 F Pulse Rate 78 92 82 Respiratory 20 18 18 Rate Blood Pressure 120/75 133/65 119/85 O2 Sat by Pulse 100 98 100 Oximetry Medical Decision Making - Medical Decision Making Was pt. sent in by a medical professional or institution (, PA, [employer], urgent care, hospital, or alf...) When possible be specific @ -No Did you speak to anyone other than the patient for history (EMS, parent, family, police, friend...)? What history was obtained from this source @ -No Did you review nursing and triage notes (agree or disagree)? Why? @ -I reviewed and agree with nursing and triage notes Were old charts reviewed (outside hosp., previous admission, EMS record, old EKG, old radiological studies, urgent care reports/EKG's, alf records)? Report findings @ -EKG was reviewed which revealed benign early repolarization. Most recent EKG from yesterday. Differential Diagnosis (chest pain, altered mental status, abdominal pain women, abdominal pain men, vaginal bleeding, weakness, fever, dyspnea, syncope, headache, dizziness, GI bleed, back pain, seizure, CVA, palpatations, mental health, musculoskeletal)? @ -Differential Chest Pain: Stable Angina, Unstable Angina, STEMI, NSTEMI Aortic Dissection, Pneumothorax, Musculoskeletal, Esophageal Spasm GERD, Cholecystitis, Pancreatitis, Zoster, this is not meant to be an all-inclusive list. EKG interpreted by me (3pts min.). @ -As above X-rays interpreted by me (1pt min.). @ -Chest x-ray reveals no obvious acute cardiopulmonary process. CT interpreted by me (1pt min.). @ -None done U/S interpreted by me (1pt. min.). @ -None done What testing was considered but not performed or refused? (CT, X-rays, U/S, labs)? Why? @ -None What meds were considered but not given or refused? Why? @ -None Did you discuss the management of the patient with other professionals (professionals i.e. , PA, [employer] REPA[employer], lab, RT, psych nurse, social welfare administrator, hydraulic press in operator, teacher, public relations officer, field case manager)? Give summary @ -Discussed results of current EKG with cardiology Dr. Giron. He agrees that EKG show benign early repolarization. Not STEMI. Was in agreement with workup. Was in agreement with no Associate Of Science In Nursing activation. Was smoking cessation discussed for >3mins.? @ -No Was critical care preformed (if so, how long)? @ -Yes, 10 minutes. Were there social determinants of health that impacted care today? How? (Homelessness, low income, unemployed, alcoholism, drug addiction, transportation, low edu. Level, literacy, decrease access to med. care, long-term, rehab)? @ -No Was there de-escalation of care discussed even if they declined (Discuss DNR or withdrawal of care, Hospice)? DNR status @ -No What co-morbidities impacted this encounter? (DM, HTN, Smoking, COPD, CAD, Cancer, CVA, ARF, Chemo, Hep., AIDS, mental health diagnosis, sleep apnea, morbid obesity)? @ -Substance abuse, cocaine abuse Was patient admitted / discharged? Hospital course, mention meds given and route, prescriptions, significant lab abnormalities, going to OR and other pertinent info. @ -Patient presents with chest pain after cocaine use. Chest pain resolved by the time I evaluated the patient. EKG obtained in triage read by the machine as possible STEMI. I do suspect it is likely benign early repolarization. We will obtain repeat EKG which redemonstrated this. I spoke with on-call cardiology who evaluated the EKGs and was in agreement my assessment that this is benign early repolarization. We will obtain cardiac workup. Patient was in agreement this plan. Once again, currently asymptomatic. Given aspirin as well as IV fluids. Vitals within acceptable limits. Laboratory studies remarkable for undetectable troponin. Remainder the labs unremarkable. Chest x-ray shows no obvious acute cardiopulmonary process. On reevaluation, patient remains asymptomatic. He wants to go home at this time and does not want to wait for an additional troponin which I did recommend. Heart score is low and therefore patient will be discharged home at this time with strict return precautions. We discussed at length cocaine cessation. Patient was in agreement this plan. I instructed the patient to follow up with their PCP in the next 1-3 days. I explained that the patient should return to the emergency department if they experience any worsening symptoms. Strict return precautions were discussed with the patient. The patient expressed understanding of these instructions. I answered all questions that the patient had. The patient was discharged home in good condition with their prescriptions and follow up information. Undiagnosed new problem with uncertain prognosis? @ -No Drug Therapy requiring intensive monitoring for toxicity (Heparin, Nitro, Insulin, Cardizem)? @ -No Were any procedures done? @ -No Diagnosis/symptom? @ -Chest pain, cocaine abuse Acute, or Chronic, or Acute on Chronic? @ -Acute Uncomplicated (without systemic symptoms) or Complicated (systemic symptoms)? @ -Uncomplicated Side effects of treatment? @ -No Exacerbation, Progression, or Severe Exacerbation? @ -No Poses a threat to life or bodily function? How? (Chest pain, [place], [place], pneumonia, PE, COPD, DKA, ARF, appy, cholecystitis, CVA, Diverticulitis, Homicidal, Suicidal, threat to staff... and all critical care pts) @ -Unlikely at this time - Lab Data Result diagrams: 10/13/24 19:16 10/13/24 19:16 Lab Results 10/13/24 10/13/24 10/13/24 Range/Units 19:16 19:16 19:16 WBC 9.0 (4.0-11.0) k/uL RBC 4.81 (4.30-5.90) m/uL Hgb 15.7 (13.0-17.5) gm/dL Hct 46.4 (39.0-53.0) % MCV 96.5 (80.0-100.0) fL MCH 32.6 (25.0-35.0) pg MCHC 33.8 (31.0-37.0) g/dL RDW 12.1 (11.5-15.5) % Plt Count 287 (150-450) k/uL MPV 6.2 Neutrophils % 78 % Lymphocytes % 13 % Monocytes % 5 % Eosinophils % 2 % Basophils % 1 % Neutrophils # 7.0 (1.3-7.7) k/uL Lymphocytes # 1.2 (1.0-4.8) k/uL Monocytes # 0.5 (0-1.0) k/uL Eosinophils # 0.2 (0-0.7) k/uL Basophils # 0.1 (0-0.2) k/uL PT 10.7 (10.0-12.5) sec INR 1.0 (<1.2) APTT 26.6 (22.0-30.0) sec Sodium 140 (137-145) mmol/L Potassium 4.0 (3.5-5.1) mmol/L Chloride 100 (98-107) mmol/L Carbon Dioxide 30 (22-30) mmol/L Anion Gap 10 mmol/L BUN 11 (9-20) mg/dL Creatinine 0.80 (0.66-1.25) mg/dL Est GFR (CKD-EPI)AfAm >90 (>60 ml/min/1.73 sqM) Est GFR (CKD-EPI)NonAf >90 (>60 ml/min/1.73 sqM) Glucose 90 (74-99) mg/dL Calcium 11.2 H (8.4-10.2) mg/dL Magnesium 2.4 H (1.6-2.3) mg/dL Total Bilirubin 0.6 (0.2-1.3) mg/dL AST 20 (17-59) U/L ALT 17 (4-49) U/L Alkaline Phosphatase 85 (38-126) U/L Troponin I (0.000-0.034) ng/mL Total Protein 8.8 H (6.3-8.2) g/dL Albumin 5.4 H (3.5-5.0) g/dL 10/13/24 Range/Units 19:16 WBC (4.0-11.0) k/uL RBC (4.30-5.90) m/uL Hgb (13.0-17.5) gm/dL Hct (39.0-53.0) % MCV (80.0-100.0) fL MCH (25.0-35.0) pg MCHC (31.0-37.0) g/dL RDW (11.5-15.5) % Plt Count (150-450) k/uL MPV Neutrophils % % Lymphocytes % % Monocytes % % Eosinophils % % Basophils % % Neutrophils # (1.3-7.7) k/uL Lymphocytes # (1.0-4.8) k/uL Monocytes # (0-1.0) k/uL Eosinophils # (0-0.7) k/uL Basophils # (0-0.2) k/uL PT (10.0-12.5) sec INR (<1.2) APTT (22.0-30.0) sec Sodium (137-145) mmol/L Potassium (3.5-5.1) mmol/L Chloride (98-107) mmol/L Carbon Dioxide (22-30) mmol/L Anion Gap mmol/L BUN (9-20) mg/dL Creatinine (0.66-1.25) mg/dL Est GFR (CKD-EPI)AfAm (>60 ml/min/1.73 sqM) Est GFR (CKD-EPI)NonAf (>60 ml/min/1.73 sqM) Glucose (74-99) mg/dL Calcium (8.4-10.2) mg/dL Magnesium (1.6-2.3) mg/dL Total Bilirubin (0.2-1.3) mg/dL AST (17-59) U/L ALT (4-49) U/L Alkaline Phosphatase (38-126) U/L Troponin I <0.012 (0.000-0.034) ng/mL Total Protein (6.3-8.2) g/dL Albumin (3.5-5.0) g/dL - EKG Data -: EKG Interpreted by Me EKG Comments: 12-lead Electrocardiogram Interpretation Note EKG was reviewed and interpreted by myself. 12-lead ECG performed at 1836 is interpreted by me as revealing normal sinus rhythm at a rate of 97 beats per minute. [place] is normal. [place] interval is 164 ms, QRS duration is 92 ms, QTc is 378 ms. Endings consistent with benign early repolarization.. There were no ST or T wave abnormalities to suggest myocardial ischemia or injury. R wave progression across the precordium was satisfactory. By my interpretation this EKG is non-diagnostic for acute ischemia. Requested repeat EKG 12-lead Electrocardiogram Interpretation Note EKG was reviewed and interpreted by myself. 12-lead ECG performed at 1848 is interpreted by me as revealing sinus tachycardia at a rate of 100 beats per minute. [place] is normal. [place] interval is 161 ms, QRS duration is 96 ms, QTc is 320 deformity seconds.. I have some J-point elevation as well as some ST segment elevations from this however it does appear chronic on prior EKGs. Machine is reading it as STEMI however believe this is likely benign early repolarization.. R wave progression across the precordium was satisfactory. By my interpretation this EKG is non-diagnostic for acute ischemia. Discussed EKGs with cardiology Dr. Giron who reviewed them and was in agreement that the assessment for benign early repolarization. Disposition Clinical Impression: Chest pain, Cocaine abuse Disposition: HOME SELF-CARE Condition: Good Instructions (If sedation given, give patient instructions): Chest Pain (ED) Additional Instructions: Stop using cocaine. Return if any worsening symptoms. Follow-up with PCP in the next 1 to 3 days. Is patient prescribed a controlled substance at d/c from ED?: No Referrals: None,Stated [Primary Care Provider] - 1-2 days Abhay Giron MD [STAFF PHYSICIAN] - 1-2 days Forms: Area PCPs Time of Disposition: 20:30
== END 2024-10-13 20:51 | disposition home or self-care (01) ==
LOC: EC 18:23
DX: R07.9 Chest pain, unspecified (principal); F14.10 Cocaine abuse, uncomplicated; R00.0 Tachycardia, unspecified; F17.290 Nicotine dependence, other tobacco product, uncomplicated
CPT/HCPCS: 36415; 71046; 80053; 83735; 84484; 85025; 85610; 85730; 93005; 99285

== ENCOUNTER 2024-10-16 19:25 | Inpatient (IN) | payer OTHER, MEDICAID ==
[2024-10-16 21:29] LABS: Basophils # (A) 0.1 k/uL (0-0.2); Basophils % (A) 1 %; Eosinophils # (A) 0.2 k/uL (0-0.7); Eosinophils % (A) 1 %; HCT 46.3 % (39.0-53.0); HGB 15.4 gm/dL (13.0-17.5); Lymphocytes # (A) 2.5 k/uL (1.0-4.8); Lymphocytes % (A) 20 %; MCH 31.4 pg (25.0-35.0); MCHC 33.2 g/dL (31.0-37.0); MCV 94.5 fL (80.0-100.0); Mean Platelet Volume 6.6; Monocytes # (A) 0.9 k/uL (0-1.0); Monocytes % (A) 7 %; Neutrophils # (A) 8.7 k/uL (1.3-7.7); Neutrophils % (A) 69 %; Platelet Count 313 k/uL (150-450); RDW 12.3 % (11.5-15.5); WBC 12.5 k/uL (4.0-11.0)
[2024-10-16 21:36] LABS: Sodium 137 mmol/L (137-145)
[2024-10-16 21:37] LABS: ALT 15 U/L (4-49); AST 22 U/L (17-59); Acetaminophen <10.0 ug/mL; African American GFR (CKD) >90 (>60 ml/min/1.73 sqM); Alkaline Phosphatase 68 U/L (38-126); Anion Gap 11 mmol/L; Blood Urea Nitrogen 13 mg/dL (9-20); Carbon Dioxide 23 mmol/L (22-30); Chloride 103 mmol/L (98-107); Glucose 77 mg/dL (74-99); Non-African American GFR(CKD) >90 (>60 ml/min/1.73 sqM); Potassium 3.9 mmol/L (3.5-5.1); Salicylate <1.0 mg/dL; Total Bilirubin 0.9 mg/dL (0.2-1.3); Total Protein 7.9 g/dL (6.3-8.2)
--- NOTE | 2024-10-16 21:51 | ED ---
General Adult HPI - General Chief complaint: Psychiatric Symptoms Stated complaint: Suicidal Time Seen by Provider: 10/16/24 19:45 Source: patient, RN notes reviewed, old records reviewed Mode of arrival: ambulatory Limitations: no limitations - History of Present Illness Initial comments: Patient is a 19-year-old male who presents emergency department for suicidal ideation and overdose attempt. Patient was seen yesterday for psychiatric care at our facility. Was safety plan at home. States when he got home at approximately 2100 last night he took 15 tablets of 50 mg trazodone which is his old medication. Presents today for further evaluation. Does endorse drinking some alcohol prior to arrival. Denies any chest pain or shortness of breath. Denies any abdominal pain, nausea, vomiting. Has no other acute complaints at this time. Presents for further evaluation at this time.Denies homicidal ideations, attempts, plans. Denies hallucinations. - Related Data Home Medications Medication Instructions Recorded Confirmed Wellbutrin(Unknown Dose) 1 dose PO DIRECTED 10/16/24 10/16/24 FLUoxetine HCL [PROzac] 10 mg PO DAILY 10/17/24 10/17/24 Paliperidone [Invega] 3 mg PO HS 10/17/24 10/17/24 traZODone HCL [Desyrel] 50 mg PO HS 10/17/24 10/17/24 Allergies Allergy/AdvReac Type Severity Reaction Status Date / Time No Known Allergies Allergy Verified 10/16/24 21:01 Review of Systems ROS Statement: Those systems with pertinent positive or pertinent negative responses have been documented in the HPI. Review of Systems: CONST: Denies fever EYES: Denies blurry vision ENT: Denies nasal congestion C/V: Denies Chest pain RESP: Denies shortness of breath GI: Denies abdominal pain : Denies dysuria SKIN: Denies rash. MSK: Denies joint pain. NEURO: Denies headache ROS Other: All systems not noted in ROS Statement are negative. 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 HEAD: Normal with no signs of head trauma. EYES: EOMI ENT: Hearing grossly intact, normal oropharynx. RESPIRATORY: Clear breath sounds bilaterally. No wheezes, rales, or rhonchi. C/V: Regular rate and rhythm. S1 and S2 auscultated, no edema, peripheral pulses 2+ and intact throughout ABD: Abd is soft, nontender, nondistended EXT: No obvious deformity SKIN: No rashes or lesions observed on exposed skin. NEURO: Alert and oriented x 4 Limitations: no limitations Course Vital Signs 10/16/24 10/16/24 10/17/24 19:37 20:24 11:00 Temperature 97.8 F 97.7 F 97.8 F Pulse Rate 127 H 108 H 58 L Respiratory 16 17 16 Rate Blood Pressure 117/67 121/63 121/82 O2 Sat by Pulse 97 95 98 Oximetry Medical Decision Making - Medical Decision Making Was pt. sent in by a medical professional or institution (Dr. PA, MANAGER PEOPLE, urgent care, hospital, or retirement...) When possible be specific @ -No Did you speak to anyone other than the patient for history (EMS, parent, family, police, friend...)? What history was obtained from this source @ -No Did you review nursing and triage notes (agree or disagree)? Why? @ -I reviewed and agree with nursing and triage notes Were old charts reviewed (outside hosp., previous admission, EMS record, old EKG, old radiological studies, urgent care reports/EKG's, retirement records)? Report findings @ -Compare today's EKG with EKG from October 13. No obvious acute changes. Differential Diagnosis (chest pain, altered mental status, abdominal pain women, abdominal pain men, vaginal bleeding, weakness, fever, dyspnea, syncope, headache, dizziness, GI bleed, back pain, seizure, CVA, palpatations, mental health, musculoskeletal)? @ -Differential Mental Health Depression, anxiety, bipolar, psychosis, schizophrenia, borderline personality, situational depression, adjustment disorder, behavioral disorder, brain tumor, malingering, substance abuse, encephalopathy, medication reaction, dementia, hypothyroidism, degenerative neurologic disorder, lupus.... This is not meant to be all-inclusive list EKG interpreted by me (3pts min.). @ -As above X-rays interpreted by me (1pt min.). @ -None done CT interpreted by me (1pt min.). @ -None done U/S interpreted by me (1pt. min.). @ -None done What testing was considered but not performed or refused? (CT, X-rays, U/S, labs)? Why? @ -None What meds were considered but not given or refused? Why? @ -None Did you discuss the management of the patient with other professionals (professionals i.e. Dr., PA, MANAGER PEOPLE, lab, RT, psych nurse, social media job titles, palliative care nurse practitioner, teacher, geographic area intelligence officer, comp field case manager)? Give summary @ -No Was smoking cessation discussed for >3mins.? @ -No Was critical care preformed (if so, how long)? @ -No Were there social determinants of health that impacted care today? How? (Homelessness, low income, unemployed, alcoholism, drug addiction, transportation, low edu. Level, literacy, decrease access to med. care, fdc, rehab)? @ -No Was there de-escalation of care discussed even if they declined (Discuss DNR or withdrawal of care, Hospice)? DNR status @ -No What co-morbidities impacted this encounter? (DM, HTN, Smoking, COPD, CAD, Cancer, CVA, ARF, Chemo, Hep., AIDS, mental health diagnosis, sleep apnea, morbid obesity)? @ -None Was patient admitted / discharged? Hospital course, mention meds given and route, prescriptions, significant lab abnormalities, going to OR and other pertinent info. @ -Patient presents for mental health evaluation. Does reveal to me that he did attempt to overdose last night. Took 15 tablets of 50 mg of trazodone at approximately 2100 on 10/15/2024. Currently has no symptoms. Poison control was contacted and was in agreement with the plan for overdose workup. Patient be cleared if overdose workup is within normal limits. Vital signs are within acceptable limits. EKG shows no signs of acute ischemia. QT within acceptable limits. Laboratory studies are still pending at this time. Patient signed out to Dr. Polanco pending results of workup. Workup ended up being unremarkable except for alcohol intoxication of 85. Dr. Polanco eventually medically cleared the patient and patient was evaluated by EPS and eventually determined to meet inpatient criteria. Undiagnosed new problem with uncertain prognosis? @ -No Drug Therapy requiring intensive monitoring for toxicity (Heparin, Nitro, Insulin, Cardizem)? @ -No Were any procedures done? @ -No Diagnosis/symptom? @ -Overdose, suicidal ideation Acute, or Chronic, or Acute on Chronic? @ -Acute Uncomplicated (without systemic symptoms) or Complicated (systemic symptoms)? @ -Complicated Side effects of treatment? @ -No Exacerbation, Progression, or Severe Exacerbation? @ -No Poses a threat to life or bodily function? How? (Chest pain, [place], ND, pneumonia, PE, COPD, DKA, ARF, appy, cholecystitis, CVA, Diverticulitis, Homicidal, Suicidal, threat to staff... and all critical care pts) @ -Potentially, yes - Lab Data Result diagrams: 10/16/24 20:19 10/16/24 20:19 Lab Results 10/16/24 10/16/24 10/17/24 Range/Units 20:19 20:19 03:29 WBC 12.5 H (4.0-11.0) k/uL RBC 4.90 (4.30-5.90) m/uL Hgb 15.4 (13.0-17.5) gm/dL Hct 46.3 (39.0-53.0) % MCV 94.5 (80.0-100.0) fL MCH 31.4 (25.0-35.0) pg MCHC 33.2 (31.0-37.0) g/dL RDW 12.3 (11.5-15.5) % Plt Count 313 (150-450) k/uL MPV 6.6 Neutrophils % 69 % Lymphocytes % 20 % Monocytes % 7 % Eosinophils % 1 % Basophils % 1 % Neutrophils # 8.7 H (1.3-7.7) k/uL Lymphocytes # 2.5 (1.0-4.8) k/uL Monocytes # 0.9 (0-1.0) k/uL Eosinophils # 0.2 (0-0.7) k/uL Basophils # 0.1 (0-0.2) k/uL Sodium 137 (137-145) mmol/L Potassium 3.9 (3.5-5.1) mmol/L Chloride 103 (98-107) mmol/L Carbon Dioxide 23 (22-30) mmol/L Anion Gap 11 mmol/L BUN 13 (9-20) mg/dL Creatinine 0.90 (0.66-1.25) mg/dL Est GFR (CKD-EPI)AfAm >90 (>60 ml/min/1.73 sqM) Est GFR (CKD-EPI)NonAf >90 (>60 ml/min/1.73 sqM) Glucose 77 (74-99) mg/dL Calcium 11.0 H (8.4-10.2) mg/dL Total Bilirubin 0.9 (0.2-1.3) mg/dL AST 22 (17-59) U/L ALT 15 (4-49) U/L Alkaline Phosphatase 68 (38-126) U/L Total Protein 7.9 (6.3-8.2) g/dL Albumin 5.0 (3.5-5.0) g/dL Salicylates <1.0 mg/dL Acetaminophen <10.0 ug/mL Serum Alcohol 85 mg/dL SARS-CoV-2 (PCR) Not Detected (Not Detectd) - EKG Data -: EKG Interpreted by Me EKG Comments: 12-lead Electrocardiogram Interpretation Note EKG was reviewed and interpreted by myself. 12-lead ECG performed at 2040 is interpreted by me as revealing normal sinus rhythm at a rate of 93 beats per minute. [place] is normal. UT interval is 176 ms, QRS duration is 97 ms, QTc is 423 ms.. There were no ST or T wave abnormalities to suggest myocardial ischemia or injury. R wave progression across the precordium was satisfactory. By my interpretation this EKG is non-diagnostic for acute ischemia.. With EKG from October 13, 2024. No acute dynamic changes. Disposition Clinical Impression: Suicidal ideation, Overdose Disposition: TRANSFER TO PSYCH HOSP/UNIT Condition: Stable
[2024-10-16 21:54] LABS: Alcohol 85 mg/dL
[2024-10-16] MEDS: SODIUM CHLORIDE 0.9% 1,000 ML IV STA (22:02)
[2024-10-17] MEDS ORDERED: MAG HYDROX/AL HYDROX/SIMETH 355 ML BOTTLE PO PRN (13:09)
[2024-10-17] MEDS ORDERED: LORazepam 2 MG/ML INJ IM PRN (13:09)
[2024-10-17] MEDS ORDERED: ACETAMINOPHEN TAB 325 MG TAB PO PRN (13:09)
[2024-10-17] MEDS ORDERED: MAGNESIUM HYDROXIDE 2,400 MG/30 ML CUP PO PRN (13:09)
[2024-10-17] MEDS ORDERED: IBUPROFEN 600 MG TAB PO PRN (13:09)
[2024-10-17] MEDS: LORazepam 1 MG TAB PO PRN (22:12)
[2024-10-18] MEDS: MELATONIN 5 MG TABLET PO PRN (00:15)
[2024-10-18 08:41] LABS: ALT 14 U/L (4-49); AST 16 U/L (17-59); Albumin 4.3 g/dL (3.5-5.0); Alkaline Phosphatase 76 U/L (38-126); Bilirubin,Unconjugated 0.5 mg/dL (0.0-1.1); Total Bilirubin 0.5 mg/dL (0.2-1.3); Total Protein 6.8 g/dL (6.3-8.2)
[2024-10-18] MEDS: DULoxetine HCL 30 MG CAPSULE.DR PO SCH (11:35)
[2024-10-18] MEDS: NICOTINE 14MG/24HR PATCH TRANSDERM SCH (12:39)
--- NOTE | 2024-10-18 14:34 | P.HP ---
Psychiatric H&P - . H&P Date: 10/18/24 History & Physical: Allergies Allergy/AdvReac Type Severity Reaction Status Date / Time No Known Allergies Allergy Verified 10/16/24 21:01 Vital Signs Temp 98.0 F 10/18/24 07:07 Pulse 80 10/18/24 07:07 Resp 16 10/18/24 07:07 BP 126/76 10/18/24 07:07 Pulse Ox 99 10/18/24 07:07 FiO2 Intake & Output 10/17/24 10/18/24 10/18/24 18:59 06:59 18:59 Weight 77.111 kg Laboratory Last Values WBC 12.5 k/uL (4.0-11.0) H 10/16/24 20:19 RBC 4.90 m/uL (4.30-5.90) 10/16/24 20:19 Hgb 15.4 gm/dL (13.0-17.5) 10/16/24 20:19 Hct 46.3 % (39.0-53.0) 10/16/24 20:19 MCV 94.5 fL (80.0-100.0) 10/16/24 20:19 MCH 31.4 pg (25.0-35.0) 10/16/24 20:19 MCHC 33.2 g/dL (31.0-37.0) 10/16/24 20:19 RDW 12.3 % (11.5-15.5) 10/16/24 20:19 Plt Count 313 k/uL (150-450) 10/16/24 20:19 MPV 6.6 10/16/24 20:19 Neutrophils % 69 % 10/16/24 20:19 Lymphocytes % 20 % 10/16/24 20:19 Monocytes % 7 % 10/16/24 20:19 Eosinophils % 1 % 10/16/24 20:19 Basophils % 1 % 10/16/24 20:19 Neutrophils # 8.7 k/uL (1.3-7.7) H 10/16/24 20:19 Lymphocytes # 2.5 k/uL (1.0-4.8) 10/16/24 20:19 Monocytes # 0.9 k/uL (0-1.0) 10/16/24 20:19 Eosinophils # 0.2 k/uL (0-0.7) 10/16/24 20:19 Basophils # 0.1 k/uL (0-0.2) 10/16/24 20:19 Sodium 137 mmol/L (137-145) 10/16/24 20:19 Potassium 3.9 mmol/L (3.5-5.1) 10/16/24 20:19 Chloride 103 mmol/L (98-107) 10/16/24 20:19 Carbon Dioxide 23 mmol/L (22-30) 10/16/24 20:19 Anion Gap 11 mmol/L 10/16/24 20:19 BUN 13 mg/dL (9-20) 10/16/24 20:19 Creatinine 0.90 mg/dL (0.66-1.25) 10/16/24 20:19 Est GFR (CKD-EPI)AfAm >90 (>60 ml/min/1.73 sqM) 10/16/24 20:19 Est GFR (CKD-EPI)NonAf >90 (>60 ml/min/1.73 sqM) 10/16/24 20:19 Glucose 77 mg/dL (74-99) 10/16/24 20:[address] Glu mg/dL 105 mg/dL 10/18/24 07:50 Hemoglobin A1c 5.3 % (<=6.0) 10/18/24 07:50 Calcium 11.0 mg/dL (8.4-10.2) H 10/16/24 20:19 Total Bilirubin 0.5 mg/dL (0.2-1.3) 10/18/24 07:50 Conjugated Bilirubin 0.0 mg/dL (0.0-0.3) 10/18/24 07:50 Unconjugated Bilirubin 0.5 mg/dL (0.0-1.1) 10/18/24 07:50 Delta Bilirubin 0.0 mg/dL (0.0-0.2) 10/18/24 07:50 AST 16 U/L (17-59) L 10/18/24 07:50 ALT 14 U/L (4-49) 10/18/24 07:50 Alkaline Phosphatase 76 U/L (38-126) 10/18/24 07:50 Total Protein 6.8 g/dL (6.3-8.2) 10/18/24 07:50 Albumin 4.3 g/dL (3.5-5.0) 10/18/24 07:50 TSH 1.290 mIU/L (0.465-4.680) 10/18/24 07:50 Salicylates <1.0 mg/dL 10/16/24 20:19 Acetaminophen <10.0 ug/mL 10/16/24 20:19 Serum Alcohol 85 mg/dL 10/16/24 20:19 SARS-CoV-2 (PCR) Not Detected (Not Detectd) 10/17/24 03:29 10/18/24 14:25 IDENTIFYING DATA: Patient is a 19-year-old male, single, unemployed and reportedly living at [facility] CHIEF COMPLAINT: Suicidal ideations HPI: Patient presented to the hospital with suicidal ideations. EPS note revealed, "Pt. found sleeping with covers pulled over his head and room light on. Municipal Services Manager tried to wake pt. by calling his name but had to touch pt for him to be aroused. Pt. is disheveled. Pt. claims that he was here for a psychiatric evaluation on 10/15/24 and was discharged with a safety plan. Pt. then went home and took fifteen 50mg trazodone tablets in a suicide attempt. Pt. states "I still feel suicidal". When asked about his living situation pt stated "I'm homeless right now". Pt then became guarded only repeating that he was suicidal." Patient seen and evaluated on the unit and was agreeable with speaking to specifications writer in office. He states he has been suffering from suicidal ideations for the past week that has worsened. Patient appeared guarded with vague responses, stating that there are no triggers or stressors that prompted this. He denies any plan. He states he did not overdose on trazodone and that he is unsure why this was documented however he does not feel like it has been helpful with sleep. He reports difficulties with sleep, appetite, anhedonia, low energy. He reports generalized worry, restlessness and racing thoughts. Patient denies any homicidal ideations intent or plan. At this time patient denies any auditory or visual hallucinations. Patient denies any flight of ideas racing thoughts and increased in goal directed behavior. Patient admits to using nicotine, smoking 1 pack/day but denies any other substances including cannabis or alcohol. He does report sober for the last 6 months from cocaine and fentanyl, UDS not done to confirm. Of note patient was recently admitted to this unit 3 months ago and had relapsed on methamphetamine at that time. PAST PSYCHIATRIC HISTORY: Patient has a history of depression, substance use. Patient is currently prescribed trazodone 50 mg at bedtime. He recently was on Prozac 10 mg and Invega 3 mg however has been nonadherent with these medications. He has also tried Zoloft, Lexapro, Prozac. He reports 2 previous inpatient hospitalizations, most recent here in July 2024. Patient denies any psychiatric outpatient follow-up. He reports at least 5 previous suicide attempts, most recent "many years ago" PMH: as per ER note ALLERGIES: as per EMR SUBSTANCE USE HISTORY: As per HPI FAMILY PSYCHIATRIC/SUBSTANCE USE HISTORY: He reports both parents suffer from depression/anxiety, his uncle attempted suicide and that his father abused "all substances" SOCIAL HISTORY: Patient reportedly lives at [facility]. He completed high school. He has no children. He is unemployed. MENTAL STATUS EXAM: General Appearance: Patient appears to be stated age is alert, directable, and attempts to cooperate. Patient appears to have fair hygiene and grooming. Behavior: Patient is seated without any agitated behavior. Withdrawn, guarded Speech: Patient's speech is fluent and nonpressured. Mood/Affect: Patient reports their mood is depressed, affect is congruent and constricted. Suicidality/Homicidality: Patient denies having any homicidal ideation intent or plan. Reports suicidal ideations, no plan Perceptions: Patient denies any visual hallucinations and denies any auditory hallucinations Though content/process: There is no evidence of any delusional thought content and thought process is linear . Memory and concentration: AOX3, grossly intact for the purposes of this session. Can spell "WORLD" backwards Judgment and insight: Poor STRENGTHS/WEAKNESSES: strength is that patient is resilient. Weakness is that patient has poor judgment, uses substances and is impulsive INTELLECT: Average IMPRESSIONS: Major depressive disorder, recurrent, moderate, rule out substance-induced depressive disorder Generalized anxiety disorder Nicotine dependence Stimulant use disorder Opiate use disorder Nicotine dependence PLAN: -Patient is admitted under voluntary status to MHU for stabilization of psychiatric symptoms and safety. Patient has signed adult voluntary form and medication consent and is placed in patient's chart. -Medications : Start Cymbalta 30 mg daily for depression/anxiety, Seroquel 50 mg at bedtime for sleep/mood stabilization -Ativan and Haldol PRN for agitation/aggression -Patient was counselled on substance abuse and desired to cut back on use-Will offer patient subtance use rehab -Patient was informed of the risks, benefits and side effects of the medication and patient verbally consented to taking the medications. Patient signed med consent form and was placed in chart. -Internal Medicine consult to perform medical evaluation and physical. -NRT -patch -SW on board for discharge planning. Encourage patient to participate in groups to work on coping skills.
[2024-10-18 15:27] LABS: Chol/HDL Ratio 2.54 Ratio; LDL Cholesterol,Calculated 59.5 mg/dL (0.0-131.0); VLDL Calculation 12.72 mg/dL (5.00-40.00)
[2024-10-18] MEDS: NICOTINE GUM (POLACRILEX) 2 MG GUM BUCCAL PRN (18:07)
[2024-10-18] MEDS: QUEtiapine 50 MG TAB PO SCH (21:09)
--- NOTE | 2024-10-18 23:43 | P.CONS ---
History of Present Illness - Reason for Consult Consult date: 10/18/24 - History of Present Illness The patient is a 19-year-old male with a PMH of depression who had presented to the emergency room with complaints of depression and suicidal ideation. The patient was admitted to the mental health unit where he was seen and evaluated. The patient had reportedly taken 15 tablets of 50 mg trazodone in an attempt to overdose. He reports that he has been struggling with several things and that he did not want to discuss these issues further. He had no active complaints at the time of interview. Reports smoking 1 pack of cigarettes daily. Denies alcohol or illicit substance use. Denied experiencing chest discomfort, shortness of breath, fever, chills, cough, nausea, vomiting, abdominal pain, diarrhea. Review of systems: Pertinent positives and negatives as discussed in HPI, a complete review of systems was performed and all other systems are negative. Physical examination: General: non toxic, no distress, appears at stated age, normal weight Derm: no unusual rashes/lesions, no unusual ecchymoses, warm, dry Head: atraumatic, normocephalic, symmetric Eyes: EOMI, no lid lag, anicteric sclera ENT: Nose and ears atraumatic, no thrush, no pharyngeal erythema Neck: trachea midline, supple Mouth: no lip lesion, mucus membranes moist Cardiovascular: S1S2 reg, no murmur, no edema Lungs: CTA bilateral, no rhonchi, no rales , no accessory muscle use Abdominal: soft, nontender to palpation, no guarding Ext: no gross muscle atrophy, no contractures, Neuro: No gross focal neuro deficits noted Psych: Alert, oriented, appropriate affect Assessment: Leukocytosis, likely secondary to stressor with no signs of active infection at this time Depression with suicidal ideation Imaging: Sinus rhythm at [address]/T wave changes noted as reviewed by me. Data Review: Laboratory evaluation was reviewed with WBC count 12.5, serum alcohol level 85 with coronavirus PCR negative with AST 16 and ALT 14. Plan: Monitor CBC Defer management of depression and suicidal ideation to the primary psychiatry service Advised on the importance of cessation from tobacco use Thank you for allowing us to participate in the care of this patient. We will follow peripherally. Do not hesitate to contact us with questions. Someone can be reached from the [facility] hospitalist group at all hours of the day at [phone]. 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 History of Any Multi-Drug Resistant Organisms: None Reported Past Surgical History: No Surgical Hx Reported Past Psychological History: ADD/ADHD, Anxiety, Bipolar Smoking Status: Current every day smoker, Vaper Past Alcohol Use History: Occasional Past Drug Use History: None Reported - Past Family History Mother Family Medical History: Hypertension Medications and Allergies Home Medications Medication Instructions Recorded Confirmed Type Wellbutrin(Unknown Dose) 1 dose PO DIRECTED 10/16/24 10/16/24 History FLUoxetine HCL [PROzac] 10 mg PO DAILY 10/17/24 10/17/24 History Paliperidone [Invega] 3 mg PO HS 10/17/24 10/17/24 History traZODone HCL [Desyrel] 50 mg PO HS 10/17/24 10/17/24 History Allergies Allergy/AdvReac Type Severity Reaction Status Date / Time No Known Allergies Allergy Verified 10/16/24 21:01 Physical Exam Vitals: Vital Signs Temp Pulse Resp BP Pulse Ox 10/18/24 07:07 98.0 F 80 16 126/76 99 Results CBC & Chem 7: 10/16/24 20:19 10/16/24 20:19 Labs: Abnormal Lab Results - Last 24 Hours (Table) 10/18/24 Range/Units 07:50 AST 16 L (17-59) U/L
[2024-10-19] MEDS: DULoxetine HCL 30 MG CAPSULE.DR PO ONE (11:45)
--- NOTE | 2024-10-19 12:20 | P.PN ---
Progress Note - Text Progress Note Date: 10/19/24 Interval History: Patient was seen laying in bed and was directable and agreeable to speak with sql report writer in the office. He reports still feeling the same as yesterday. He reports sleep was better however with the Seroquel. Patient is mostly seen isolative to his room, not attending groups. He reports ongoing suicidal ideations today, no improvement and no plan. He states he is willing to go straight from here to [facility] upon discharge and states that he feels as if he was discharged before then he may relapse and he is motivated to maintain his sobriety. He states his longest period of sobriety was for 3 years but states at this time he had no access to drugs. At this time patient denies any homicidal ideations, intent or plan. Patient denies any auditory, visual hallucinations and denies any paranoia or delusions. Patient denies any side effects from the medications and has been compliant with meds. Mental Status Exam: General Appearance: Patient appears to be stated age is alert, directable, and cooperative. Behavior: Patient is calmly seated without any agitated behavior. Patient is withdrawn, guarded Speech: Patient's speech is fluent and nonpressured. Mood/Affect: Mood is "depressed", affect is congruent and constricted. Suicidality/Homicidality: Patient reports suicidal ideations, no plan or intent but denies having any homicidal ideation intent or plan. Perceptions: Patient denies any visual hallucinations and denies any auditory hallucinations Though content/process: There is no evidence of any delusional thought content and thought process is linear and goal-directed. Memory and concentration: AOX3, grossly intact for the purposes of this session Judgment and insight: Improving mildly Assessment Major depressive disorder, recurrent, moderate Rule out substance-induced depressive disorder Generalized anxiety disorder Stimulant use disorder Opiate use disorder Nicotine dependence Plan: -Patient continues to meet criteria for inpatient psychiatric admission for symptom stabilization and safety. Patient has signed adult voluntary form and medication consent and was placed in patient's chart. -Medications: Increase Cymbalta to 60 mg daily for depression/anxiety and continue Seroquel 50 mg at bedtime for sleep/mood stabilization -When necessary Ativan and Haldol for agitation/aggression. -Labs: Reviewed, UDS ordered but not completed yet -NRT -nicotine patch -SW on board for discharge planning. Encouraged the patient to participate in milieu.
[2024-10-20] MEDS: DULoxetine HCL 60 MG CAPSULE.DR PO SCH (10:17)
--- NOTE | 2024-10-20 13:09 | P.PN ---
Progress Note - Text Progress Note Date: 10/20/24 Interval History: Patient was seen laying in bed and was directable and agreeable to speak with telegraphic typewriter operator in the office. He continues to be withdrawn, not attending groups but adherent with medications. He states feeling the same today as yesterday. He continues to report suicidal ideations but did mention they are less intense today than yesterday. He reports poor sleep overnight, issues staying asleep. He does report some improvement in anxiety however. He is on board with going to [facility] later this month however we will look into patient returning to [facility] in the interim to prevent relapse on substances. At this time patient denies any homicidal ideations, intent or plan. Patient denies any auditory, visual hallucinations and denies any paranoia or delusions. Patient denies any side effects from the medications and has been compliant with meds. Mental Status Exam: General Appearance: Patient appears to be stated age is alert, directable, and cooperative. Behavior: Patient is calmly seated without any agitated behavior. Speech: Patient's speech is fluent and nonpressured. Mood/Affect: Mood is improving mildly, affect is congruent and flat. Suicidality/Homicidality: Patient denies having any homicidal ideation intent or plan. He reports suicidal ideations, passive in nature Perceptions: Patient denies any visual hallucinations and denies any auditory hallucinations Though content/process: There is no evidence of any delusional thought content and thought process is linear and logical. Memory and concentration: AOX3, grossly intact for the purposes of this session Judgment and insight: Improving mildly Assessment Major depressive disorder, recurrent, moderate Rule out substance-induced depressive disorder Generalized anxiety disorder Stimulant use disorder Opiate use disorder Nicotine dependence Plan: -Patient continues to meet criteria for inpatient psychiatric admission for symptom stabilization and safety. Patient has signed adult voluntary form and medication consent and was placed in patient's chart. -Medications: Continue Cymbalta 60 mg daily for depression/anxiety and increase Seroquel to 100 mg at bedtime for sleep/mood stabilization -When necessary Ativan and Haldol for agitation/aggression. -Labs: Reviewed -NRT -nicotine patch -SW on board for discharge planning. Encouraged the patient to participate in milieu.
[2024-10-20] MEDS: QUEtiapine 100 MG TAB PO SCH (20:15)
[2024-10-21] MEDS ORDERED: haloperidoL 5 MG TAB PO PRN (15:53)
[2024-10-21] MEDS: hydrOXYzine pamoate 25 MG CAP PO PRN (16:07)
[2024-10-21] MEDS: HALOPERIDOL LACTATE 5 MG/ML 1 ML VIAL IM PRN (16:08)
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
--- NOTE | 2024-10-22 14:50 | P.PN ---
Progress Note - Text Interval History: Patient was resting but was directable and agreeable to speak with magazine writer. He reports his mood as "fine". He also described described his sleep and appetite as "fine". He endorses that experiencing ongoing anxiety at times when asked about triggers he identified being in crowds. He has panic attacks every few days. He denies any residual facial pain or distress related to yesterday's incident. At this time patient denies any suicidal or homicidal ideations, intent, or plan. Patient denies any auditory, visual hallucinations and denies any paranoia or delusions. Patient denies any side effects from the medications and has been compliant with meds. Review of records, he uses PRN Ativan approximately twice per day on average. He did have 1 dose of hydroxyzine on 10/21. Mental Status Exam: General Appearance: Patient appears to be stated age is alert, directable, and cooperative. Minimally expressive. Behavior: Patient is calmly seated without any agitated behavior. Speech: Patient's speech is fluent and non-pressured. Not elaborative. Mostly responds in one-word answers. Mood/Affect: Mood is "fine", affect is blunted. Suicidality/Homicidality: Patient denies having any suicidal or homicidal ideation intent or plan. Perceptions: Patient denies any visual hallucinations and denies any auditory hallucinations Though content/process: There is no evidence of any delusional thought content and thought process is linear and goal-directed. Memory and concentration: AOX3, grossly intact for the purposes of this session Judgment and insight: Improving mildly Assessment Major depressive disorder, recurrent, moderate Rule out substance-induced depressive disorder Generalized anxiety disorder Stimulant use disorder Opiate use disorder Nicotine dependence Plan: -Patient continues to meet criteria for inpatient psychiatric admission for symptom stabilization and safety. Patient has signed adult voluntary form and medication consent and was placed in patient's chart. -Medications: - Continue Cymbalta 60 mg daily for depression/anxiety - Continue Seroquel 100 mg at bedtime for sleep/mood stabilization - Continue hydroxyzine 25 mg Q6H PRN for anxiety -When necessary Ativan and Haldol for agitation/aggression. -Labs: No updates -NRT -nicotine patch -SW on board for discharge planning. Encouraged the patient to participate in milieu.
[2024-10-23] MEDS ORDERED: hydrOXYzine pamoate 25 MG CAP PO PRN (10:12)
--- NOTE | 2024-10-23 12:27 | P.PN ---
Progress Note - Text Progress Note Date: 10/23/24 Interval History: Patient was seen in bed and was directable and agreeable to speak with literary writer in the office. Patient continues to be largely isolative to room, not attending groups, withdrawn. He states feeling "fine" today. He expresses issues staying asleep. He reports high anxiety today however reports ineffectiveness with Vistaril but was agreeable with increasing this medication today for anxiety. Patient expresses concerns with relapse upon discharge back to [facility] so the plan will be for patient to transition to [place] in the interim while we wait for [facility] on the of this month. He continues to express depressive symptoms and does not notice a benefit from Cymbalta just yet. At this time patient denies any suicidal or homicidal ideations, intent or plan. Patient denies any auditory, visual hallucinations and denies any paranoia or delusions. Patient denies any side effects from the medications and has been compliant with meds. Mental Status Exam: General Appearance: Patient appears to be stated age is alert, directable, and cooperative. Behavior: Patient is calmly seated without any agitated behavior. Guarded, withdrawn Speech: Patient's speech is fluent and nonpressured. Mood/Affect: Mood is improving mildly, affect is congruent and constricted. Suicidality/Homicidality: Patient denies having any suicidal or homicidal ideation intent or plan. Perceptions: Patient denies any visual hallucinations and denies any auditory hallucinations Though content/process: There is no evidence of any delusional thought content and thought process is linear and goal-directed. Memory and concentration: AOX3, grossly intact for the purposes of this session Judgment and insight: Improving mildly Assessment Major depressive disorder, recurrent, moderate Rule out substance-induced depressive disorder Generalized anxiety disorder Stimulant use disorder Opiate use disorder Nicotine dependence Plan: -Patient continues to meet criteria for inpatient psychiatric admission for symptom stabilization and safety. Patient has signed adult voluntary form and medication consent and was placed in patient's chart. -Medications: Continue Cymbalta 60 mg daily for depression/anxiety, increase Seroquel to 150 mg at bedtime for sleep/mood stabilization, increase hydroxyzine to 50 mg every 6 hours as needed for anxiety -When necessary Ativan and Haldol for agitation/aggression. -Labs: Reviewed -NRT -nicotine patch -SW on board for discharge planning. Encouraged the patient to participate in milieu. Anticipate discharge later this week to [facility]. Social work is working on potentially discharging patient to [facility] and then going directly there to [facility] on the given concerns with relapsing if discharged to a [facility]
[2024-10-23] MEDS: QUEtiapine 50 MG TAB PO SCH (20:17)
[2024-10-24 07:12] VITALS: BP 104/56; PULSE 52; RESP 16; TEMP 97.7
[2024-10-24] MEDS: DULoxetine HCL 30 MG CAPSULE.DR PO SCH (08:15)
--- NOTE | 2024-10-24 13:38 | P.DS ---
Providers Date of admission: 10/17/24 13:00 Expected date of discharge: 10/24/24 Attending physician: Madison Sharma MD Consults: 10/17/24 13:13 Consult Physician Routine Consulting Provider: Marlin Nichole Consult Reason/Comments: Medical H&P Do you want consulting provider notified?: Yes Primary care physician: Stated None - Discharge Diagnosis(es) (1) Major depressive disorder, recurrent episode, moderate Status: Acute Priority: High (2) Generalized anxiety disorder Status: Acute Priority: Medium (3) Stimulant use disorder Status: Acute Priority: High (4) Opioid use disorder Status: Acute Priority: High (5) Nicotine dependence Status: Acute Priority: Low Hospital Course: Admission HPI: Admission note was completed by designer writer "Patient presented to the hospital with suicidal ideations. EPS note revealed, "Pt. found sleeping with covers pulled over his head and room light on. Grain Broker tried to wake pt. by calling his name but had to touch pt for him to be aroused. Pt. is disheveled. Pt. claims that he was here for a psychiatric evaluation on 10/15/24 and was discharged with a safety plan. Pt. then went home and took fifteen 50mg trazodone tablets in a suicide attempt. Pt. states "I still feel suicidal". When asked about his living situation pt stated "I'm homeless right now". Pt then became guarded only repeating that he was suicidal." Patient seen and evaluated on the unit and was agreeable with speaking to designer writer in office. He states he has been suffering from suicidal ideations for the past week that has worsened. Patient appeared guarded with vague responses, stating that there are no triggers or stressors that prompted this. He denies any plan. He states he did not overdose on trazodone and that he is unsure why this was documented however he does not feel like it has been helpful with sleep. He reports difficulties with sleep, appetite, anhedonia, low energy. He reports generalized worry, restlessness and racing thoughts. Patient denies any homicidal ideations intent or plan. At this time patient denies any auditory or visual hallucinations. Patient denies any flight of ideas racing thoughts and increased in goal directed behavior. Patient admits to using nicotine, smoking 1 pack/day but denies any other substances including cannabis or alcohol. He does report sober for the last 6 months from cocaine and fentanyl, UDS not done to confirm. Of note patient was recently admitted to this unit 3 months ago and had relapsed on methamphetamine at that time." Hospital course: Upon admission to the unit patient was directable and agreeable to commence treatment and signed adult voluntary form.. Patient was initially isolative to room however towards the end of his stay got along well with other patients on the unit and followed unit protocol. Patient was compliant with the medications and denied any side effects throughout hospital course. Patient was started on Cymbalta and this was increased to 90 mg daily for depression/anxiety, Seroquel increased to 150 mg at bedtime for sleep/mood stabilization, hydroxyzine 50 mg as needed for anxiety. Patient was pretty guarded and was not forthcoming with his outside stressors. Patient was also seen by medical team for history and physical exam. Throughout the course of the hospitalization patient gradually improved with regards to mood, anxiety, sleep and returned back to their baseline level of functioning. On the day of discharge patient denied any suicidal or homicidal ideations intent or plan denied any auditory or visual hallucinations. The patient denied any access to guns or weapons. Patient denied any paranoia and did not endorse any delusions. Patient does have a significant history of substance abuse and was counseled on abstaining from all substances including alcohol and marijuana. Patient ended up agreeing to inpatient subtance rehab with an appointment with [facility] scheduled for 11/06. Patient was also counseled on the medications and need for regular compliance and was encouraged to follow-up with their outpatient appointment for mental health and also for primary care. Patient to be discharged to [facility] until his upcoming [facility] appointment later this month with [facility] follow-up to bridge the gap. Mental status exam: General Appearance: Patient appears to be stated age is alert, pleasant, and cooperative. Patient is in no acute distress and has fair hygiene and grooming Behavior: Patient is calmly seated without any agitated behavior. Speech: Patient's speech is fluent and nonpressured. Mood/Affect: Patient reports their mood is "good", affect is congruent and blunted Suicidality/Homicidality: Patient denies having any suicidal or homicidal ideation intent or plan. Perceptions: Patient denies any auditory or visual hallucinations. Though content/process: There is no evidence of any delusional thought content and thought process is linear and logical. Memory and concentration: AOX3, grossly intact for the purposes of this session. Can spell "WORLD" backwards correctly. Judgment and insight: Chronically poor, however has improved with guarded prognosis Impression: Major depressive disorder, recurrent, moderate Rule out substance-induced depressive disorder Generalized anxiety disorder Stimulant use disorder Opioid use disorder Nicotine dependence Plan: -Continue with discharge today as patient has improved and stabilized psychiatrically and is not currently an imminent threat to themself and/or others. Patient will remain at chronically elevated risk for harm to self and/or others due to their impulsivity and substance abuse. -Continue medications: Cymbalta 90 mg daily, Seroquel 150 mg at bedtime, hydroxyzine 50 mg as needed -Patient was counseled on the need for medication compliance and appropriate follow-up at mental health and also primary care for medical issues. Patient verbalized understanding and agreed. -Social work to help coordinate patients discharge today. also to ensure safe home environment that guns/weapons are either removed from the home or locked away. Social work also to arrange for patients follow up appointments with [facility] for psychiatric care along with follow up with primary care provider. -Patient counseled on abstaining from recreational drugs and marijuana and alcohol. Was informed/educated on the adverse effects on their physical and mental health. Patient verbally agreed and understood. Patient has an upcoming appointment scheduled at [facility] on 11/06 -Patient was instructed to return to the hospital or seek immediate medical care if their psychiatric or medical symptoms do worsen or reoccur. Abnormal Labs 10/16/24 10/16/24 10/18/24 20:19 20:19 07:50 WBC 12.5 H Neutrophils # 8.7 H Calcium 11.0 H AST 16 L Vital Signs Temp 97.7 F 10/24/24 06:42 Pulse 52 L 10/24/24 06:42 Resp 16 10/24/24 06:42 BP 104/56 10/24/24 06:42 Pulse Ox 99 10/24/24 06:42 FiO2 Allergies Allergy/AdvReac Type Severity Reaction Status Date / Time No Known Allergies Allergy Verified 10/16/24 21:01 Plan - Discharge Summary Discharge Rx Participant: Yes New Discharge Prescriptions: New Nicotine Gum (Polacrilex) [Nicorette] 2 mg BUCCAL Q2HR PRN pieceofgum PRN Reason: Nicotine Cravings QUEtiapine [SEROquel] 50 mg PO HS 30 Days #30 tab QUEtiapine [SEROquel] 100 mg PO HS 30 Days #30 tab DULoxetine HCL [Cymbalta] 30 mg PO DAILY #30 cap DULoxetine HCL [Cymbalta] 60 mg PO DAILY 30 Days #30 cap hydrOXYzine pamoate [Vistaril] 50 mg PO Q6HR PRN 30 Days #60 cap PRN Reason: Anxiety Discontinued traZODone HCL [Desyrel] 50 mg PO HS Paliperidone [Invega] 3 mg PO HS FLUoxetine HCL [PROzac] 10 mg PO DAILY Wellbutrin(Unknown Dose) 1 dose PO DIRECTED Discharge Medication List DULoxetine HCL [Cymbalta] 30 mg PO DAILY #30 cap 10/24/24 [Rx] DULoxetine HCL [Cymbalta] 60 mg PO DAILY 30 Days #30 cap 10/24/24 [Rx] Nicotine Gum (Polacrilex) [Nicorette] 2 mg BUCCAL Q2HR PRN pieceofgum 10/24/24 [Rx] QUEtiapine [SEROquel] 50 mg PO HS 30 Days #30 tab 10/24/24 [Rx] QUEtiapine [SEROquel] 100 mg PO HS 30 Days #30 tab 10/24/24 [Rx] hydrOXYzine pamoate [Vistaril] 50 mg PO Q6HR PRN 30 Days #60 cap 10/24/24 [Rx] Follow up Appointment(s)/Referral(s): [facility] [Outside] - 11/06/24 9:[address] [facility] [Outside] - 10/25/24 2:00 pm (10/25 at 2pm with Rai Calloway 11/03 at 10:30am with Dr. Angeles) [facility] [NON-STAFF] - 1 Week Patient Instructions/Handouts: How to Stop Smoking (DC), Depression (DC), Polysubstance Abuse (ED) Activity/Diet/Wound Care/Special Instructions: Avoid the use of street drugs and alcohol. Take all medications as prescribed. When you are in need of refills on your medications, please contact your medical provider and/or outpatient psychiatrist/provider to have this done. Please go to your scheduled outpatient appointment for aftercare treatment. If symptoms return or become worse, call the crisis line at and/or go to the nearest emergency room for evaluation. National Suicide Hotline 988 Discharge Disposition: HOME SELF-CARE
== END 2024-10-24 12:50 | disposition home or self-care (01) | DRG 885 ==
LOC: EC 19:25 → 3MHU 10-17 13:00
PROVIDERS: ADMIT Psychiatry & Neurology Psychiatry; ATTEND Psychiatry & Neurology Psychiatry
DX: F33.1 Major depressive disorder, recurrent, moderate (principal); F11.14 Opioid abuse with opioid-induced mood disorder; F15.14 Other stimulant abuse with stimulant-induced mood disorder; F41.0 Panic disorder [episodic paroxysmal anxiety]; F90.9 Attention-deficit hyperactivity disorder, unspecified type; F17.210 Nicotine dependence, cigarettes, uncomplicated; F41.1 Generalized anxiety disorder; R45.1 Restlessness and agitation; Z56.0 Unemployment, unspecified; Z11.52 Encounter for screening for COVID-19; Z71.51 Drug abuse counseling and surveillance of drug abuser; Z71.89 Other specified counseling; Z79.899 Other long term (current) drug therapy; Z91.51 Personal history of suicidal behavior; Z28.21 Immunization not carried out because of patient refusal
CPT/HCPCS: 80053; 80061; 80076; 80143; 80179; 80320; 82075; 83036; 84443; 85025; 87635; 93005; 99285

== ENCOUNTER 2024-12-03 19:31 | Emergency (ER) | payer OTHER ==
[2024-12-03 19:41] VITALS: RESP 16
--- NOTE | 2024-12-03 20:14 | ED ---
Skin/Abscess/FB HPI - General Chief complaint: Skin/Abscess/Foreign Body Stated complaint: Allergic Rxn Time Seen by Provider: 12/03/24 19:43 Source: patient Mode of arrival: ambulatory Limitations: no limitations - History of Present Illness Initial comments: 19-year-old male presenting with chief complaint of rash. Patient has a red and pruritic rash over his face. Present diffusely on the face. Thinks that it may be due to installing insulation and drywall earlier today. Patient also started taking Suboxone recently, started 2 weeks ago. No difficulty breathing or swallowing. No nausea vomiting or abdominal pain. No swelling of the lips or face. He put some aloe vera on the rash at home as well as some lotion to try to help with the symptoms, did not really have any effect. - Related Data Previous Rx's Medication Instructions Recorded DULoxetine HCL [Cymbalta] 30 mg PO DAILY #30 cap 10/24/24 DULoxetine HCL [Cymbalta] 60 mg PO DAILY 30 Days #30 cap 10/24/24 Nicotine Gum (Polacrilex) 2 mg BUCCAL Q2HR PRN pieceofgum 10/24/24 [Nicorette] QUEtiapine [SEROquel] 50 mg PO HS 30 Days #30 tab 10/24/24 QUEtiapine [SEROquel] 100 mg PO HS 30 Days #30 tab 10/24/24 hydrOXYzine pamoate [Vistaril] 50 mg PO Q6HR PRN 30 Days #60 cap 10/24/24 Allergies Allergy/AdvReac Type Severity Reaction Status Date / Time No Known Allergies Allergy Verified 12/03/24 19:41 Review of Systems ROS Statement: Those systems with pertinent positive or pertinent negative responses have been documented in the HPI. ROS Other: All systems not noted in ROS Statement are negative. 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 Absent: periorbital swelling Neck exam: Present: normal inspection. Absent: meningismus Respiratory exam: Absent: respiratory distress, stridor Neurological exam: Present: alert, oriented X3 Psychiatric exam: Present: normal affect, normal mood Skin exam: Present: erythema (Erythematous and pruritic rash on the face) Course Vital Signs 12/03/24 19:38 Temperature 98.3 F Pulse Rate 54 L Respiratory 16 Rate Blood Pressure 117/68 O2 Sat by Pulse 98 Oximetry Medical Decision Making - Medical Decision Making Was pt. sent in by a medical professional or institution (, [facility], GARDEN EQUIPMENT MECHANIC, urgent care, hospital, or long-term...) When possible be specific @ -No Did you speak to anyone other than the patient for history (EMS, parent, family, police, friend...)? What history was obtained from this source @ -No Did you review nursing and triage notes (agree or disagree)? Why? @ -I reviewed and agree with nursing and triage notes Were old charts reviewed (outside hosp., previous admission, EMS record, old EKG, old radiological studies, urgent care reports/EKG's, long-term records)? Report findings @ -No old charts were reviewed Differential Diagnosis (chest pain, altered mental status, abdominal pain women, abdominal pain men, vaginal bleeding, weakness, fever, dyspnea, syncope, headache, dizziness, GI bleed, back pain, seizure, CVA, palpatations, mental health, musculoskeletal)? @ -Differential includes allergic reaction, cellulitis, eczema, this is not an all-inclusive list EKG interpreted by me (3pts min.). @ -As above X-rays interpreted by me (1pt min.). @ -None done CT interpreted by me (1pt min.). @ -None done U/S interpreted by me (1pt. min.). @ -None done What testing was considered but not performed or refused? (CT, X-rays, U/S, labs)? Why? @ -None What meds were considered but not given or refused? Why? @ -None Did you discuss the management of the patient with other professionals (professionals i.e. , YOBANY, GARDEN EQUIPMENT MECHANIC, lab, RT, psych nurse, manager social, magnetometer operator, teacher, small business banking officer, case management manager)? Give summary @ -No Was smoking cessation discussed for >3mins.? @ -No Was critical care preformed (if so, how long)? @ -No Were there social determinants of health that impacted care today? How? (Homelessness, low income, unemployed, alcoholism, drug addiction, tra nsportation, low edu. Level, literacy, decrease access to med. care, group home, rehab)? @ -No Was there de-escalation of care discussed even if they declined (Discuss DNR or withdrawal of care, Hospice)? DNR status @ -No What co-morbidities impacted this encounter? (DM, HTN, Smoking, COPD, CAD, Cancer, CVA, ARF, Chemo, Hep., AIDS, mental health diagnosis, sleep apnea, morbid obesity)? @ -None Was patient admitted / discharged? Hospital course, mention meds given and route, prescriptions, significant lab abnormalities, going to OR and other pertinent info. @ -19-year-old male presenting with chief complaint of red and pruritic rash to the face that started today. No evidence of angioedema on exam. No difficulty breathing or swallowing. No stridor. Patient believes this is from installing drywall earlier today, he also recently started Suboxone 2 weeks ago and thinks that it could be related to that. Patient is given Benadryl, Solu-Medrol, and Pepcid. He is educated on today's findings and treatment plan. He will keep a log of his symptoms to help narrow down causes. Follow-up with PCP. Report back to ER with any new or worsening symptoms. Discussed return parameters and answered all questions. Patient conveyed verbal understanding and agreed to the plan. I discussed this case in detail with my attending Dr. Wang Undiagnosed new problem with uncertain prognosis? @ -No Drug Therapy requiring intensive monitoring for toxicity (Heparin, Nitro, Insulin, Cardizem)? @ -No Were any procedures done? @ -No Diagnosis/symptom? @ -Rash Acute, or Chronic, or Acute on Chronic? @ -Acute Uncomplicated (without systemic symptoms) or Complicated (systemic symptoms)? @ -Uncomplicated Side effects of treatment? @ -No Exacerbation, Progression, or Severe Exacerbation? @ -No Poses a threat to life or bodily function? How? (Chest pain, USA, MS, pneumonia, PE, COPD, DKA, ARF, appy, cholecystitis, CVA, Diverticulitis, Homicidal, Suicidal, threat to staff... and all critical care pts) @ -Low likelihood Disposition Clinical Impression: Rash Disposition: HOME SELF-CARE Condition: Good Instructions (If sedation given, give patient instructions): Acute Rash (ED) Additional Instructions: Follow-up with PCP. Report back to ER with any new or worsening symptoms. Take Benadryl at home as needed. Keep a log of your symptoms to help narrow down causes of your rash Is patient prescribed a controlled substance at d/c from ED?: No Referrals: None,Stated [Primary Care Provider] - 1-2 days Forms: Area PCPs Time of Disposition: 20:13
[2024-12-03] MEDS: FAMOTIDINE 20 MG TAB PO STA (20:23)
[2024-12-03] MEDS: diphenhydrAMINE 25 MG CAP PO STA (20:23)
[2024-12-03] MEDS: methylPREDNISolone SOD SUCCI 125 MG/2 ML VIAL IM ONE (20:24)
[2024-12-03 20:30] VITALS: BP 152/91; PULSE 67; TEMP 98.9
== END 2024-12-03 20:30 | disposition home or self-care (01) ==
LOC: EC 19:31
DX: R21 Rash and other nonspecific skin eruption (principal); F17.290 Nicotine dependence, other tobacco product, uncomplicated
CPT/HCPCS: 99283; 96372; J2919

== ENCOUNTER 2025-04-16 01:40 | Emergency (ER) | payer OTHER ==
[2025-04-16 01:46] VITALS: TEMP 98.1
--- NOTE | 2025-04-16 01:55 | ED ---
Arrhythmia/Palpitations HPI - General Chief Complaint: Arrhythmia/Palpitations Stated Complaint: elevated heart rate Time Seen by Provider: 04/16/25 01:48 Source: patient, EMS Mode of arrival: EMS Limitations: no limitations - History of Present Illness Initial Comments: Patient is a 20-year-old man presenting to have evaluation for rapid heartbeat. The patient states that he had been drinking, had used cannabis and also had used cocaine. The patient states that he is feeling better now. No chest pain, diaphoresis, dyspnea, nausea/vomiting MD Complaint: "heart racing" -: hour(s) Context: occurred during rest, recent drug use Associated Symptoms: denies other symptoms - Related Data Previous Rx's Medication Instructions Recorded DULoxetine HCL [Cymbalta] 30 mg PO DAILY #30 cap 10/24/24 DULoxetine HCL [Cymbalta] 60 mg PO DAILY 30 Days #30 cap 10/24/24 Nicotine Gum (Polacrilex) 2 mg BUCCAL Q2HR PRN pieceofgum 10/24/24 [Nicorette] QUEtiapine [SEROquel] 50 mg PO HS 30 Days #30 tab 10/24/24 QUEtiapine [SEROquel] 100 mg PO HS 30 Days #30 tab 10/24/24 hydrOXYzine pamoate [Vistaril] 50 mg PO Q6HR PRN 30 Days #60 cap 10/24/24 Allergies Allergy/AdvReac Type Severity Reaction Status Date / Time No Known Allergies Allergy Verified 05/07/25 06:15 Review of Systems ROS Statement: Those systems with pertinent positive or pertinent negative responses have been documented in the HPI. ROS Other: All systems not noted in ROS Statement are negative. Constitutional: Denies: fever, weakness Eyes: Denies: vision change Respiratory: Denies: cough, dyspnea Cardiovascular: Reports: palpitations. 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 Absent: scleral icterus, conjunctival injection Neck exam: Present: normal inspection Respiratory exam: Present: normal lung sounds bilaterally. Absent: respiratory distress, wheezes, rales, rhonchi, stridor, accessory muscle use Cardiovascular Exam: Present: regular rate, normal rhythm, normal heart sounds. Absent: systolic murmur, diastolic murmur, rubs, gallop GI/Abdominal exam: Present: soft. Absent: distended, tenderness, guarding, rebound, rigid, mass Extremities exam: Present: normal inspection, normal capillary refill Back exam: Present: normal inspection Neurological exam: Present: alert Skin exam: Present: warm, dry, intact, normal color. Absent: rash Course Vital Signs 04/16/25 04/16/25 01:42 04:17 Temperature 98.1 F Pulse Rate 92 68 Respiratory 15 16 Rate Blood Pressure 132/71 134/77 O2 Sat by Pulse 99 98 Oximetry EKG Findings - EKG Results: EKG: interpreted by ERMD, sinus rhythm - Blocks, [place], Hypertrophy, ST Abn: QRS axis and voltage: right axis deviation (+90 to +180) (Borderline) Repolarization changes or abnormalities: nonspecific abnormality, ST segment, and/or T wave Medical Decision Making - Medical Decision Making The patient had chest x-ray that I interpreted as negative for acute infiltrate, pneumothorax, congestive heart failure Was pt. sent in by a medical professional or institution (, PA, RADIOLOGIST CHIEF OF BREAST IMAGING, urgent care, hospital, or penitentiary...) When possible be specific @ -[No] Did you speak to anyone other than the patient for history (EMS, parent, family, police, friend...)? What history was obtained from this source @ -[No] Did you review nursing and triage notes (agree or disagree)? Why? @ -[I reviewed and agree with nursing and triage notes] Were old charts reviewed (outside hosp., previous admission, EMS record, old EKG, old radiological studies, urgent care reports/EKG's, penitentiary records)? Report findings @ -[No old charts were reviewed] Differential Diagnosis (chest pain, altered mental status, abdominal pain women, abdominal pain men, vaginal bleeding, weakness, fever, dyspnea, syncope, headache, dizziness, GI bleed, back pain, seizure, CVA, palpatations, mental hea lth, musculoskeletal)? @ -[Differential Palpitations Ventricular arrhythmias, atrial arrhythmias, myocardial infarction, anemia, thyrotoxicosis, electrolyte imbalance, hypokalemia, pulmonary embolism, pulmonary disease, drugs, alcohol, anxiety, stress.... This is not meant to be an all-inclusive list. EKG interpreted by me (3pts min.). @ -[I interpreted as above] X-rays interpreted by me (1pt min.). @ -[I interpreted as above CT interpreted by me (1pt min.). @ -[None done] U/S interpreted by me (1pt. min.). @ -[None done] What testing was considered but not performed or refused? (CT, X-rays, U/S, labs)? Why? @ -[None] What meds were considered but not given or refused? Why? @ -[None] Did you discuss the management of the patient with other professionals (professionals i.e. , PA, RADIOLOGIST CHIEF OF BREAST IMAGING, lab, RT, psych nurse, outreach and education social worker, pipe layer, teacher, chief lifestyle officer, case maker)? Give summary @ -[No] Was smoking cessation discussed for >3mins.? @ -[No] Was critical care preformed (if so, how long)? @ -[No] Were there social determinants of health that impacted care today? How? (Home lessness, low income, unemployed, alcoholism, drug addiction, transportation, low edu. Level, literacy, decrease access to med. care, fci, rehab)? @ -[No] Was there de-escalation of care discussed even if they declined (Discuss DNR or withdrawal of care, Hospice)? DNR status @ -[No] What co-morbidities impacted this encounter? (DM, HTN, Smoking, COPD, CAD, Cancer, CVA, ARF, Chemo, Hep., AIDS, mental health diagnosis, sleep apnea, morbid obesity)? @ -[None] Was patient admitted / discharged? Hospital course, mention meds given and route, prescriptions, significant lab abnormalities, going to OR and other pertinent info. @ -[Patient is a 20-year-old man presenting with palpitations after cocaine use. The patient's symptoms resolving. The history and physical consistent with sympathomimetic abuse. Labs reveal mild hypokalemia,. Patient stable for discharge counseled to avoid substance abuse. Return parameters discussed Undiagnosed new problem with uncertain prognosis? @ -[No] Drug Therapy requiring intensive monitoring for toxicity (Heparin, Nitro, Insulin, Cardizem)? @ -[No] Were any procedures done? @ -[No] Diagnosis/symptom? @ -[Acute palpitations Cocaine abuse Acute, or Chronic, or Acute on Chronic? @ -[Acute Uncomplicated (without systemic symptoms) or Complicated (systemic symptoms)? @ -[Uncomplicated Side effects of treatment? @ -[No] Exacerbation, Progression, or Severe Exacerbation? @ -[No] Poses a threat to life or bodily function? How? (Chest pain, USA, CT, pneumonia, PE, COPD, DKA, ARF, appy, cholecystitis, CVA, Diverticulitis, Homicidal, Suicid al, threat to staff... and all critical care pts) @ -[No] All treatments are based on ideal body weight as in ED triage - Lab Data Result diagrams: 04/16/25 02:03 04/16/25 02:03 Lab Results 04/16/25 04/16/25 04/16/25 Range/Units 02:03 02:03 02:03 WBC 7.47 (4.50-10.00) 10*3/uL RBC 4.40 (4.40-5.60) 10*6/uL Hgb 14.0 (13.0-17.0) g/dL Hct 40.4 (39.6-50.0) % MCV 91.8 (80.0-97.0) fL MCH 31.8 (27.0-32.0) pg MCHC 34.7 (32.0-37.0) g/dL Plt Count 252 (140-440) 10*3/uL MPV 8.7 L (9.5-12.2) fL Immature Gran % (Auto) 0.4 % Neutrophils % 68.5 % Lymphocytes % 22.5 % Monocytes % 7.8 % Eosinophils % 0.1 % Basophils % 0.7 % Immature Gran # 0.03 (0.00-0.04) 10*3/uL Neutrophils # 5.12 (1.80-7.70) 10*3/uL Lymphocytes # 1.68 (0.90-5.00) 10*3/uL Monocytes # 0.58 (0.20-1.00) 10*3/uL Eosinophils # 0.01 L (0.04-0.35) 10*3/uL Basophils # 0.05 (0.00-0.10) 10*3/uL PT 12.3 (10.0-12.5) sec INR 1.1 (<1.2) APTT 24.8 (22.0-30.0) sec Sodium 137 (137-145) mmol/L Potassium 3.3 L (3.5-5.1) mmol/L Chloride 106 (98-107) mmol/L Carbon Dioxide 22 (22-30) mmol/L Anion Gap 9 mmol/L BUN 7 L (9-20) mg/dL Creatinine 0.71 (0.66-1.25) mg/dL Est GFR (CKD-EPI)AfAm >90 (>60 ml/min/1.73 sqM) Est GFR (CKD-EPI)NonAf >90 (>60 ml/min/1.73 sqM) Glucose 131 H (74-99) mg/dL Calcium 10.2 (8.4-10.2) mg/dL Magnesium 2.1 (1.6-2.3) mg/dL Total Bilirubin 0.6 (0.2-1.3) mg/dL AST 18 (17-59) U/L ALT 14 (4-49) U/L Alkaline Phosphatase 58 (38-126) U/L Troponin I (0.000-0.034) ng/mL Total Protein 6.2 L (6.3-8.2) g/dL Albumin 3.8 (3.5-5.0) g/dL 04/16/25 Range/Units 02:03 WBC (4.50-10.00) 10*3/uL RBC (4.40-5.60) 10*6/uL Hgb (13.0-17.0) g/dL Hct (39.6-50.0) % MCV (80.0-97.0) fL MCH (27.0-32.0) pg MCHC (32.0-37.0) g/dL Plt Count (140-440) 10*3/uL MPV (9.5-12.2) fL Immature Gran % (Auto) % Neutrophils % % Lymphocytes % % Monocytes % % Eosinophils % % Basophils % % Immature Gran # (0.00-0.04) 10*3/uL Neutrophils # (1.80-7.70) 10*3/uL Lymphocytes # (0.90-5.00) 10*3/uL Monocytes # (0.20-1.00) 10*3/uL Eosinophils # (0.04-0.35) 10*3/uL Basophils # (0.00-0.10) 10*3/uL PT (10.0-12.5) sec INR (<1.2) APTT (22.0-30.0) sec Sodium (137-145) mmol/L Potassium (3.5-5.1) mmol/L Chloride (98-107) mmol/L Carbon Dioxide (22-30) mmol/L Anion Gap mmol/L BUN (9-20) mg/dL Creatinine (0.66-1.25) mg/dL Est GFR (CKD-EPI)AfAm (>60 ml/min/1.73 sqM) Est GFR (CKD-EPI)NonAf (>60 ml/min/1.73 sqM) Glucose (74-99) mg/dL Calcium (8.4-10.2) mg/dL Magnesium (1.6-2.3) mg/dL Total Bilirubin (0.2-1.3) mg/dL AST (17-59) U/L ALT (4-49) U/L Alkaline Phosphatase (38-126) U/L Troponin I <0.012 (0.000-0.034) ng/mL Total Protein (6.3-8.2) g/dL Albumin (3.5-5.0) g/dL Disposition Clinical Impression: Palpitations, Substance abuse Disposition: HOME SELF-CARE Condition: Good Instructions (If sedation given, give patient instructions): Heart Palpitations (ED) Is patient prescribed a controlled substance at d/c from ED?: No Referrals: None,Stated [Primary Care Provider] - 1-2 days
[2025-04-16 02:19] LABS: Basophils # (A) 0.05 10*3/uL (0.00-0.10); Basophils % (A) 0.7 %; Eosinophils # (A) 0.01 10*3/uL (0.04-0.35); Eosinophils % (A) 0.1 %; HCT 40.4 % (39.6-50.0); Lymphocytes # (A) 1.68 10*3/uL (0.90-5.00); Lymphocytes % (A) 22.5 %; MCH 31.8 pg (27.0-32.0); MCHC 34.7 g/dL (32.0-37.0); MCV 91.8 fL (80.0-97.0); Mean Platelet Volume 8.7 fL (9.5-12.2); Monocytes # (A) 0.58 10*3/uL (0.20-1.00); Monocytes % (A) 7.8 %; Neutrophils # (A) 5.12 10*3/uL (1.80-7.70); Neutrophils % (A) 68.5 %; Platelet Count 252 10*3/uL (140-440); RDW 11.8 % (11.5-14.5); WBC 7.47 10*3/uL (4.50-10.00)
[2025-04-16 02:31] LABS: INR 1.1 (<1.2); Partial Thromboplastin Time 24.8 sec (22.0-30.0); Prothrombin Time 12.3 sec (10.0-12.5)
[2025-04-16 02:46] LABS: ALT 14 U/L (4-49); AST 18 U/L (17-59); African American GFR (CKD) >90 (>60 ml/min/1.73 sqM); Albumin 3.8 g/dL (3.5-5.0); Alkaline Phosphatase 58 U/L (38-126); Anion Gap 9 mmol/L; Blood Urea Nitrogen 7 mg/dL (9-20); Calcium 10.2 mg/dL (8.4-10.2); Carbon Dioxide 22 mmol/L (22-30); Chloride 106 mmol/L (98-107); Glucose 131 mg/dL (74-99); Magnesium 2.1 mg/dL (1.6-2.3); Non-African American GFR(CKD) >90 (>60 ml/min/1.73 sqM); Potassium 3.3 mmol/L (3.5-5.1); Sodium 137 mmol/L (137-145); Total Bilirubin 0.6 mg/dL (0.2-1.3); Total Protein 6.2 g/dL (6.3-8.2)
--- NOTE | 2025-04-16 03:44 | XR ---
EXAM: XR Chest, 2 Views CLINICAL HISTORY: ITS.REASON XR Reason: dysrhythmia TECHNIQUE: Frontal and lateral views of the chest. COMPARISON: No relevant prior studies available. FINDINGS: Lungs: No consolidation or mass. Pleural space: No effusion. Heart: No cardiomegaly. Bones/joints: No acute findings. IMPRESSION: No acute cardiopulmonary process.
[2025-04-16 04:18] VITALS: BP 134/77; PULSE 68; RESP 16
== END 2025-04-16 04:18 | disposition home or self-care (01) ==
LOC: EC 01:40
DX: R00.2 Palpitations (principal); F19.90 Other psychoactive substance use, unspecified, uncomplicated; F17.290 Nicotine dependence, other tobacco product, uncomplicated
CPT/HCPCS: 36415; 71046; 80053; 83735; 84484; 85025; 85610; 85730; 93005; 99285

== ENCOUNTER 2025-04-19 09:23 | Emergency (ER) | payer OTHER ==
[2025-04-19 09:33] VITALS: BP 125/75; PULSE 88; RESP 17; TEMP 97.6
--- NOTE | 2025-04-19 10:00 | ED ---
General Adult HPI - General Chief complaint: Chest Pain Stated complaint: Chest Pain Time Seen by Provider: 04/19/25 09:38 Source: patient, RN notes reviewed Mode of arrival: ambulatory Limitations: no limitations - History of Present Illness Initial comments: 20 year old male presents to the ED for evaluation of chest pain. He says that his symptoms started at work this morning a few hours after he woke up. He says he has had episodes of pain like this before while at work and says this feels similar. He endorses feeling slightly SOB as well. Denies any bradycardic disease states he has a history anxiety has a history of drug use. - Related Data Previous Rx's Medication Instructions Recorded DULoxetine HCL [Cymbalta] 30 mg PO DAILY #30 cap 10/24/24 DULoxetine HCL [Cymbalta] 60 mg PO DAILY 30 Days #30 cap 10/24/24 Nicotine Gum (Polacrilex) 2 mg BUCCAL Q2HR PRN pieceofgum 10/24/24 [Nicorette] QUEtiapine [SEROquel] 50 mg PO HS 30 Days #30 tab 10/24/24 QUEtiapine [SEROquel] 100 mg PO HS 30 Days #30 tab 10/24/24 hydrOXYzine pamoate [Vistaril] 50 mg PO Q6HR PRN 30 Days #60 cap 10/24/24 Allergies Allergy/AdvReac Type Severity Reaction Status Date / Time No Known Allergies Allergy Verified 04/19/25 09:33 Review of Systems ROS Statement: Those systems with pertinent positive or pertinent negative responses have been documented in the HPI. ROS Other: All systems not noted in ROS Statement are negative. 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 Absent: scleral icterus, conjunctival injection, periorbital swelling ENT exam: Present: normal exam, mucous membranes moist Neck exam: Present: normal inspection, full ROM. Absent: tenderness, meningismus, lymphadenopathy Respiratory exam: Present: normal lung sounds bilaterally. Absent: respiratory distress, wheezes, rales, rhonchi, stridor Cardiovascular Exam: Present: regular rate, normal rhythm, normal heart sounds. Absent: systolic murmur, diastolic murmur, rubs, gallop, clicks GI/Abdominal exam: Present: soft, normal bowel sounds. Absent: distended, tenderness, guarding, rebound, rigid Neurological exam: Present: alert Course Vital Signs 04/19/25 09:30 Temperature 97.6 F Pulse Rate 88 Respiratory 17 Rate Blood Pressure 125/75 O2 Sat by Pulse 98 Oximetry EKG Findings - EKG Comments: EKG Findings:: EKG performed at 9: 58 sinus bradycardia rate of 57 MD 183 QRS 99 QT/QTc 380/377 - EKG Results: EKG: interpreted by JEREMIAH Medical Decision Making - Medical Decision Making Was pt. sent in by a medical professional or institution (, PA, WEB SIZER, urgent care, hospital, or usp...) When possible be specific @ -No Did you speak to anyone other than the patient for history (EMS, parent, family, police, friend...)? What history was obtained from this source @ -No Did you review nursing and triage notes (agree or disagree)? Why? @ -I reviewed and agree with nursing and triage notes Were old charts reviewed (outside hosp., previous admission, EMS record, old EKG, old radiological studies, urgent care reports/EKG's, usp records)? Report findings @ -Reviewed prior EKG and chest x-ray Differential Diagnosis (chest pain, altered mental status, abdominal pain women, abdominal pain men, vaginal bleeding, weakness, fever, dyspnea, syncope, headache, dizziness, GI bleed, back pain, seizure, CVA, palpatations, mental health, musculoskeletal)? @ -Differential Chest Pain: Stable Angina, Unstable Angina, STEMI, NSTEMI Aortic Dissection, Pneumothorax, Musculoskeletal, Esophageal Spasm GERD, Cholecystitis, Pancreatitis, Zoster, this is not meant to be an all-inclusive list. EKG interpreted by me (3pts min.). @ -As above X-rays interpreted by me (1pt min.). @ -None done CT interpreted by me (1pt min.). @ -None done U/S interpreted by me (1pt. min.). @ -None done What testing was considered but not performed or refused? (CT, X-rays, U/S, labs)? Why? @ -[Patient refused chest x-ray What meds were considered but not given or refused? Why? @ -None Did you discuss the management of the patient with other professionals (professionals i.e. , PA, WEB SIZER, lab, RT, psych nurse, renal social worker, typewriter repairer, teacher, licensed loan officer, caser)? Give summary @ -No Was smoking cessation discussed for >3mins.? @ -No Was critical care preformed (if so, how long)? @ -No Were there social determinants of health that impacted care today? How? (Homelessness, low income, unemployed, alcoholism, drug addiction, transp ortation, low edu. Level, literacy, decrease access to med. care, detention, rehab)? @ -No Was there de-escalation of care discussed even if they declined (Discuss DNR or withdrawal of care, Hospice)? DNR status @ -No What co-morbidities impacted this encounter? (DM, HTN, Smoking, COPD, CAD, Cancer, CVA, ARF, Chemo, Hep., AIDS, mental health diagnosis, sleep apnea, morbid obesity)? @ -None Was patient admitted / discharged? Hospital course, mention meds given and route, prescriptions, significant lab abnormalities, going to OR and other pertinent info. @ -Patient left against medical vice refusing all treatment Undiagnosed new problem with uncertain prognosis? @ -No Drug Therapy requiring intensive monitoring for toxicity (Heparin, Nitro, Insulin, Cardizem)? @ -No Were any procedures done? @ -No Diagnosis/symptom? @ -Chest pain Acute, or Chronic, or Acute on Chronic? @ -Acute Uncomplicated (without systemic symptoms) or Complicated (systemic symptoms)? @ -Complicated Side effects of treatment? @ -No Exacerbation, Progression, or Severe Exacerbation? @ -No Poses a threat to life or bodily function? How? (Chest pain, USA, [place], pneumonia, PE, COPD, DKA, ARF, appy, cholecystitis, CVA, Diverticulitis, Homicidal, Suicidal, threat to staff... and all critical care pts) @ -No Disposition Clinical Impression: Atypical chest pain Disposition: LEFT AGAINST MEDICAL ADVICE Referrals: Maximiliano Nixon MD [Primary Care Provider] - 1-2 days Time of Disposition: 10:46
== END 2025-04-19 10:36 | disposition left against medical advice (07) ==
LOC: EC 09:23
DX: R07.89 Other chest pain (principal); Z53.29 Procedure and treatment not carried out because of patient's decision for other reasons; F41.9 Anxiety disorder, unspecified; F17.290 Nicotine dependence, other tobacco product, uncomplicated
CPT/HCPCS: 93005; 99285

== ENCOUNTER 2025-04-27 04:18 | Emergency (ER) | payer OTHER ==
[2025-04-27 04:58] LABS: Basophils # (A) 0.04 10*3/uL (0.00-0.10); Basophils % (A) 0.4 %; Eosinophils # (A) 0.05 10*3/uL (0.04-0.35); Eosinophils % (A) 0.5 %; HCT 50.3 % (39.6-50.0); Lymphocytes # (A) 1.94 10*3/uL (0.90-5.00); Lymphocytes % (A) 18.6 %; MCH 31.5 pg (27.0-32.0); MCHC 34.8 g/dL (32.0-37.0); MCV 90.6 fL (80.0-97.0); Mean Platelet Volume 8.4 fL (9.5-12.2); Monocytes # (A) 1.06 10*3/uL (0.20-1.00); Monocytes % (A) 10.2 %; Neutrophils # (A) 7.29 10*3/uL (1.80-7.70); Platelet Count 281 10*3/uL (140-440); RBC 5.55 10*6/uL (4.40-5.60); RDW 11.9 % (11.5-14.5); WBC 10.41 10*3/uL (4.50-10.00)
[2025-04-27 05:05] LABS: ALT 28 U/L (4-49); African American GFR (CKD) >90 (>60 ml/min/1.73 sqM); Albumin 5.2 g/dL (3.5-5.0); Anion Gap 12 mmol/L; Blood Urea Nitrogen 15 mg/dL (9-20); Calcium 11.6 mg/dL (8.4-10.2); Carbon Dioxide 21 mmol/L (22-30); Chloride 101 mmol/L (98-107); Glucose 111 mg/dL (74-99); Non-African American GFR(CKD) >90 (>60 ml/min/1.73 sqM); Sodium 134 mmol/L (137-145); Total Bilirubin 1.4 mg/dL (0.2-1.3)
[2025-04-27 05:06] LABS: HGB 17.5 g/dL (13.0-17.0)
[2025-04-27 05:16] LABS: Magnesium 2.1 mg/dL (1.6-2.3)
[2025-04-27 05:17] LABS: AST 26 U/L (17-59); Alkaline Phosphatase 78 U/L (38-126)
[2025-04-27 06:00] LABS: INR 1.1 (<1.2); Partial Thromboplastin Time 25.5 sec (22.0-30.0); Prothrombin Time 11.9 sec (10.0-12.5)
--- NOTE | 2025-04-27 06:00 | ED ---
General Adult HPI - General Chief complaint: Arrhythmia/Palpitations Stated complaint: Chest Pain Time Seen by Provider: 04/27/25 04:21 Source: patient, EMS, RN notes reviewed, old records reviewed Mode of arrival: EMS Limitations: no limitations - History of Present Illness Initial comments: 20-year-old male presenting with palpitation. Patient states he did take a unknown medication which was given to him by a friend and was supposedly Seroquel. About 1 hour after taking this medication he began feeling palpitations. Paramedics reported a heart rate above 160. He also admits to alcohol consumption. Patient denies prior cardiac history. Denies abdominal pain nausea vomiting. Denies fever. - Related Data Previous Rx's Medication Instructions Recorded DULoxetine HCL [Cymbalta] 30 mg PO DAILY #30 cap 10/24/24 DULoxetine HCL [Cymbalta] 60 mg PO DAILY 30 Days #30 cap 10/24/24 Nicotine Gum (Polacrilex) 2 mg BUCCAL Q2HR PRN pieceofgum 10/24/24 [Nicorette] QUEtiapine [SEROquel] 50 mg PO HS 30 Days #30 tab 10/24/24 QUEtiapine [SEROquel] 100 mg PO HS 30 Days #30 tab 10/24/24 hydrOXYzine pamoate [Vistaril] 50 mg PO Q6HR PRN 30 Days #60 cap 10/24/24 Allergies Allergy/AdvReac Type Severity Reaction Status Date / Time No Known Allergies Allergy Verified 04/27/25 04:25 Review of Systems ROS Statement: Those systems with pertinent positive or pertinent negative responses have been documented in the HPI. ROS Other: All systems not noted in ROS Statement are negative. 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 History of Any Multi-Drug Resistant Organisms: None Reported Past Surgical History: No Surgical Hx Reported Past Psychological History: ADD/ADHD, Anxiety, Bipolar Smoking Status: Current every day smoker, Vaper Past Alcohol Use History: Occasional Past Drug Use History: Marijuana - Past Family History Mother Family Medical History: Hypertension General Exam Limitations: no limitations General appearance: alert, in no apparent distress, anxious Head exam: Present: atraumatic, normocephalic Eye exam: Present: normal appearance, PERRL ENT exam: Present: mucous membranes dry Neck exam: Present: normal inspection. Absent: tenderness, meningismus Respiratory exam: Present: normal lung sounds bilaterally. Absent: respiratory distress, wheezes Cardiovascular Exam: Present: normal rhythm, tachycardia GI/Abdominal exam: Present: soft. Absent: distended, tenderness, guarding Extremities exam: Present: normal inspection, normal capillary refill Neurological exam: Present: alert, oriented X3, CN II-XII intact. Absent: motor sensory deficit Psychiatric exam: Present: anxious Skin exam: Present: warm, dry, intact. Absent: cyanosis, diaphoretic Course Vital Signs 04/27/25 04/27/25 04/27/25 04:19 04:27 06:00 Temperature 98.0 F Pulse Rate 113 H 96 Pulse Rate [ 113 H Ecological Risk Assessor ] Respiratory 18 18 Rate Blood Pressure 121/67 104/68 O2 Sat by Pulse 98 100 Oximetry Medical Decision Making - Medical Decision Making Was pt. sent in by a medical professional or institution (, PA, PILL PACKER, urgent care, hospital, or long-term...) When possible be specific @ -No Did you speak to anyone other than the patient for history (EMS, parent, family, police, friend...)? What history was obtained from this source @ -No Did you review nursing and triage notes (agree or disagree)? Why? @ -I reviewed and agree with nursing and triage notes Were old charts reviewed (outside hosp., previous admission, EMS record, old EKG, old radiological studies, urgent care reports/EKG's, long-term records)? Report findings @ -No old charts were reviewed Differential Palpitations Ventricular arrhythmias, atrial arrhythmias, myocardial infarction, anemia, thyrotoxicosis, electrolyte imbalance, hypokalemia, pulmonary embolism, pulmonary disease, drugs, alcohol, anxiety, stress.... This is not meant to be an all-inclusive list. EKG interpreted by me (3pts min.). @Sinus tachycardia rate of 112, OH interval 128, QRS duration 90, QTc 366, n onspecific T wave abnormality throughout the inferior and precordial lead. X-rays interpreted by me (1pt min.). @ -None done CT interpreted by me (1pt min.). @ -None done U/S interpreted by me (1pt. min.). @ -None done What testing was considered but not performed or refused? (CT, X-rays, U/S, maya anderson)? Why? @ -None What meds were considered but not given or refused? Why? @ -None Did you discuss the management of the patient with other professionals (professionals i.e. , PA, PILL PACKER, lab, RT, psych nurse, protective services social worker, brass cleaner, teacher, national insurance officer, vocational case manager)? Give summary @ -No Was smoking cessation discussed for >3mins.? @ -No Was critical care preformed (if so, how long)? @ -No Were there social determinants of health that impacted care today? How? (Homelessness, low income, unemployed, alcoholism, drug addiction, transportation, low edu. Level, literacy, decrease access to med. care, assisted, rehab)? @ -No Was there de-escalation of care discussed even if they declined (Discuss DNR or withdrawal of care, Hospice)? DNR status @ -No What co-morbidities impacted this encounter? (DM, HTN, Smoking, COPD, CAD, Cancer, CVA, ARF, Chemo, Hep., AIDS, mental health diagnosis, sleep apnea, morbid obesity)? @Alcohol, polypharmacy Was patient admitted / discharged? Hospital course, mention meds given and route, prescriptions, significant lab abnormalities, going to OR and other pertinent info. @20-year-old male presenting with palpitations after taking an unknown drug possibly Seroquel. Patient is awake and alert. He is anxious. Mildly tachycardic at the time of my assessment. Patient has a significantly elevated hemoglobin and a calcium of 11.3. I suspect these lab abnormalities are secondary to dehydration. Patient given 1 L fluid bolus and repeat laboratory blood tests are obtained. Patient care signed out at shift change awaiting repeat laboratory testing. Undiagnosed new problem with uncertain prognosis? @ -No Drug Therapy requiring intensive monitoring for toxicity (Heparin, Nitro, Insulin, Cardizem)? @ -No Were any procedures done? @ -No Diagnosis/symptom? @ -[Palpitation, dehydration Acute, or Chronic, or Acute on Chronic? @ -Acute Uncomplicated (without systemic symptoms) or Complicated (systemic symptoms)? @ -[default Side effects of treatment? @ -No Exacerbation, Progression, or Severe Exacerbation? @ -No Poses a threat to life or bodily function? How? (Chest pain, USA, CT, pneumonia, PE, COPD, DKA, ARF, appy, cholecystitis, CVA, Diverticulitis, Homicidal, Suicidal, threat to staff... and all critical care pts) @ -Low risk at this time - Lab Data Result diagrams: 04/27/25 04:23 04/27/25 04:23 Lab Results 04/27/25 04/27/25 04/27/25 Range/Units 04:23 04:23 04:23 WBC 10.41 H (4.50-10.00) 10*3/uL RBC 5.55 (4.40-5.60) 10*6/uL Hgb 17.5 H D (13.0-17.0) g/dL Hct 50.3 H (39.6-50.0) % MCV 90.6 (80.0-97.0) fL MCH 31.5 (27.0-32.0) pg MCHC 34.8 (32.0-37.0) g/dL Plt Count 281 (140-440) 10*3/uL MPV 8.4 L (9.5-12.2) fL Immature Gran % (Auto) 0.3 % Neutrophils % 70.0 % Lymphocytes % 18.6 % Monocytes % 10.2 % Eosinophils % 0.5 % Basophils % 0.4 % Immature Gran # 0.03 (0.00-0.04) 10*3/uL Neutrophils # 7.29 (1.80-7.70) 10*3/uL Lymphocytes # 1.94 (0.90-5.00) 10*3/uL Monocytes # 1.06 H (0.20-1.00) 10*3/uL Eosinophils # 0.05 (0.04-0.35) 10*3/uL Basophils # 0.04 (0.00-0.10) 10*3/uL PT 11.9 (10.0-12.5) sec INR 1.1 (<1.2) APTT 25.5 (22.0-30.0) sec Sodium 134 L (137-145) mmol/L Potassium 4.0 (3.5-5.1) mmol/L Chloride 101 (98-107) mmol/L Carbon Dioxide 21 L (22-30) mmol/L Anion Gap 12 mmol/L BUN 15 (9-20) mg/dL Creatinine 0.77 (0.66-1.25) mg/dL Est GFR (CKD-EPI)AfAm >90 (>60 ml/min/1.73 sqM) Est GFR (CKD-EPI)NonAf >90 (>60 ml/min/1.73 sqM) Glucose 111 H (74-99) mg/dL Calcium 11.6 H (8.4-10.2) mg/dL Magnesium 2.1 (1.6-2.3) mg/dL Total Bilirubin 1.4 H (0.2-1.3) mg/dL AST 26 (17-59) U/L ALT 28 (4-49) U/L Alkaline Phosphatase 78 (38-126) U/L Troponin I (0.000-0.034) ng/mL Total Protein 8.0 (6.3-8.2) g/dL Albumin 5.2 H (3.5-5.0) g/dL 04/27/25 Range/Units 04:23 WBC (4.50-10.00) 10*3/uL RBC (4.40-5.60) 10*6/uL Hgb (13.0-17.0) g/dL Hct (39.6-50.0) % MCV (80.0-97.0) fL MCH (27.0-32.0) pg MCHC (32.0-37.0) g/dL Plt Count (140-440) 10*3/uL MPV (9.5-12.2) fL Immature Gran % (Auto) % Neutrophils % % Lymphocytes % % Monocytes % % Eosinophils % % Basophils % % Immature Gran # (0.00-0.04) 10*3/uL Neutrophils # (1.80-7.70) 10*3/uL Lymphocytes # (0.90-5.00) 10*3/uL Monocytes # (0.20-1.00) 10*3/uL Eosinophils # (0.04-0.35) 10*3/uL Basophils # (0.00-0.10) 10*3/uL PT (10.0-12.5) sec INR (<1.2) APTT (22.0-30.0) sec Sodium (137-145) mmol/L Potassium (3.5-5.1) mmol/L Chloride (98-107) mmol/L Carbon Dioxide (22-30) mmol/L Anion Gap mmol/L BUN (9-20) mg/dL Creatinine (0.66-1.25) mg/dL Est GFR (CKD-EPI)AfAm (>60 ml/min/1.73 sqM) Est GFR (CKD-EPI)NonAf (>60 ml/min/1.73 sqM) Glucose (74-99) mg/dL Calcium (8.4-10.2) mg/dL Magnesium (1.6-2.3) mg/dL Total Bilirubin (0.2-1.3) mg/dL AST (17-59) U/L ALT (4-49) U/L Alkaline Phosphatase (38-126) U/L Troponin I <0.012 (0.000-0.034) ng/mL Total Protein (6.3-8.2) g/dL Albumin (3.5-5.0) g/dL Disposition Clinical Impression: Alcohol abuse, Palpitations Disposition: HOME SELF-CARE Condition: Stable Is patient prescribed a controlled substance at d/c from ED?: No Referrals: Maximiliano Nixon MD [Primary Care Provider] - 1-2 days Time of Disposition: 08:00
[2025-04-27] MEDS: SODIUM CHLORIDE 0.9% 1,000 ML IV ONE (06:02)
[2025-04-27 06:40] LABS: Amphetamine Screen,Urine Detected (NotDetected); Barbiturate Screen,Urine Not Detected (NotDetected); Benzodiazepines Screen,Urine Not Detected (NotDetected); Cocaine Screen,Urine Detected (NotDetected); Methadone Screen, Urine Not Detected (NotDetected); Opiate Screen,Urine Not Detected (NotDetected); Oxycodone Screen, Urine Not Detected (NotDetected); Phencyclidine Screen,Urine Not Detected (NotDetected); Tricyclic Antidepressant,Urine Detected (NotDetected); Urn Cannabinoid Scrn Detected (NotDetected)
[2025-04-27 08:26] VITALS: RESP 16
[2025-04-27 08:31] LABS: Basophils # (A) 0.04 10*3/uL (0.00-0.10); Basophils % (A) 0.4 %; Eosinophils # (A) 0.07 10*3/uL (0.04-0.35); Eosinophils % (A) 0.7 %; HCT 48.3 % (39.6-50.0); HGB 16.8 g/dL (13.0-17.0); Lymphocytes # (A) 2.42 10*3/uL (0.90-5.00); Lymphocytes % (A) 25.9 %; MCH 31.6 pg (27.0-32.0); MCHC 34.8 g/dL (32.0-37.0); Mean Platelet Volume 8.4 fL (9.5-12.2); Monocytes # (A) 1.09 10*3/uL (0.20-1.00); Monocytes % (A) 11.7 %; Neutrophils # (A) 5.68 10*3/uL (1.80-7.70); Neutrophils % (A) 60.9 %; Platelet Count 258 10*3/uL (140-440); RBC 5.31 10*6/uL (4.40-5.60); RDW 12.2 % (11.5-14.5); WBC 9.34 10*3/uL (4.50-10.00)
[2025-04-27 08:32] LABS: ALT 24 U/L (4-49); AST 19 U/L (17-59); African American GFR (CKD) >90 (>60 ml/min/1.73 sqM); Albumin 4.5 g/dL (3.5-5.0); Alkaline Phosphatase 69 U/L (38-126); Anion Gap 9 mmol/L; Blood Urea Nitrogen 16 mg/dL (9-20); Calcium 11.1 mg/dL (8.4-10.2); Carbon Dioxide 25 mmol/L (22-30); Chloride 103 mmol/L (98-107); Glucose 96 mg/dL (74-99); Non-African American GFR(CKD) >90 (>60 ml/min/1.73 sqM); Potassium 4.1 mmol/L (3.5-5.1); Sodium 137 mmol/L (137-145); Total Bilirubin 1.1 mg/dL (0.2-1.3)
[2025-04-27 09:40] VITALS: BP 110/52; PULSE 112; TEMP 97.4
== END 2025-04-27 09:40 | disposition home or self-care (01) ==
LOC: EC 04:18
DX: R00.2 Palpitations (principal); F10.10 Alcohol abuse, uncomplicated; E86.0 Dehydration; R00.0 Tachycardia, unspecified; F17.290 Nicotine dependence, other tobacco product, uncomplicated
CPT/HCPCS: 36415; 80053; 80306; 83735; 84484; 85025; 85610; 85730; 93005; 96360; 96361; 99285

== ENCOUNTER 2025-04-30 07:33 | Emergency (ER) | payer OTHER ==
--- NOTE | 2025-04-30 08:00 | ED ---
General Adult HPI - General Chief complaint: Recheck/Abnormal Lab/Rx Stated complaint: Left side chest pain Time Seen by Provider: 04/30/25 07:47 Source: patient Mode of arrival: ambulatory Limitations: no limitations - History of Present Illness Initial comments: This patient is a 20-year-old man who presents to have evaluation for palpitations. He states that after work yesterday around 11 he went to lie down in bed and noticed that his heart was beating "more pronounced" than his usual. He states that it was difficult to get sleep because he he was aware of this. He denies callum pain. No dyspnea, cough, diaphoresis, nausea or vomiting. He states that as result he did not sleep well and he arrives here to have evaluation. Onset/Timin -: hour(s) Location: chest Radiation: non-radiation Quality: dull Consistency: constant Improves with: none Worsens with: none Associated Symptoms: other (Palpitations) Treatments Prior to Arrival: none - Related Data Previous Rx's Medication Instructions Recorded DULoxetine HCL [Cymbalta] 30 mg PO DAILY #30 cap 10/24/24 DULoxetine HCL [Cymbalta] 60 mg PO DAILY 30 Days #30 cap 10/24/24 Nicotine Gum (Polacrilex) 2 mg BUCCAL Q2HR PRN pieceofgum 10/24/24 [Nicorette] QUEtiapine [SEROquel] 50 mg PO HS 30 Days #30 tab 10/24/24 QUEtiapine [SEROquel] 100 mg PO HS 30 Days #30 tab 10/24/24 hydrOXYzine pamoate [Vistaril] 50 mg PO Q6HR PRN 30 Days #60 cap 10/24/24 Clindamycin [Cleocin] 300 mg PO TID #42 cap 05/11/25 Allergies Allergy/AdvReac Type Severity Reaction Status Date / Time No Known Allergies Allergy Verified 05/13/25 12:04 Review of Systems ROS Statement: Those systems with pertinent positive or pertinent negative responses have been documented in the HPI. ROS Other: All systems not noted in ROS Statement are negative. Constitutional: Denies: fever, chills, weakness Respiratory: Denies: cough, dyspnea Cardiovascular: Reports: as per HPI, chest pain, palpitations. 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 Absent: scleral icterus, conjunctival injection ENT exam: Present: normal oropharynx Neck exam: Present: normal inspection Respiratory exam: Present: normal lung sounds bilaterally. Absent: respiratory distress, wheezes, rales, rhonchi, stridor, accessory muscle use Cardiovascular Exam: Present: regular rate, normal rhythm, normal heart sounds. Absent: systolic murmur, diastolic murmur, rubs, gallop GI/Abdominal exam: Present: soft. Absent: distended, tenderness, guarding, rebound, rigid, mass Extremities exam: Present: normal inspection, normal capillary refill. Absent: pedal edema, calf tenderness Back exam: Present: normal inspection. Absent: CVA tenderness (R), CVA tenderness (L) Neurological exam: Present: alert Skin exam: Present: warm, dry, intact, normal color. Absent: rash Course Vital Signs 04/30/25 04/30/25 04/30/25 07:34 08:30 09:23 Temperature 97.9 F 98.6 F Pulse Rate 62 58 L 58 L Respiratory 18 16 16 Rate Blood Pressure 125/79 119/60 110/50 O2 Sat by Pulse 100 97 98 Oximetry EKG Findings - EKG Results: EKG: interpreted by ERMD, sinus rhythm (Rate 61 bpm), normal axis, normal QRS - Blocks, [place], Hypertrophy, ST Abn: Repolarization changes or abnormalities: nonspecific abnormality, ST segment, and/or T wave Medical Decision Making - Medical Decision Making The patient had chest x-ray that I interpreted as negative for acute infiltrate, pneumothorax, congestive heart failure Was pt. sent in by a medical professional or institution (YOBANY Go, ARTIFICIAL FLOWERS STARCHER, urgent care, hospital, or group home...) When possible be specific @ -[No] Did you speak to anyone other than the patient for history (EMS, parent, family, police, friend...)? What history was obtained from this source @ -[No] Did you review nursing and triage notes (agree or disagree)? Why? @ -[I reviewed and agree with nursing and triage notes] Were old charts reviewed (outside hosp., previous admission, EMS record, old EKG, old radiological studies, urgent care reports/EKG's, group home records)? Report findings @ -[No old charts were reviewed] Differential Diagnosis (chest pain, altered mental status, abdominal pain women, abdominal pain men, vaginal bleeding, weakness, fever, dyspnea, syncope, headache, dizziness, GI bleed, back pain, seizure, CVA, palpatations, mental health, musculoskeletal)? @ -[Differential Palpitations Ventricular arrhythmias, atrial arrhythmias, myocardial infarction, anemia, thyrotoxicosis, electrolyte imbalance, hypokalemia, pulmonary embolism, pulmonary disease, drugs, alcohol, anxiety, stress.... This is not meant to be an all-inclusive list. EKG interpreted by me (3pts min.). @ -[I interpreted as above] X-rays interpreted by me (1pt min.). @ -[I interpreted as above CT interpreted by me (1pt min.). @ -[None done] U/S interpreted by me (1pt. min.). @ -[None done] What testing was considered but not performed or refused? (CT, X-rays, U/S, labs)? Why? @ -[None] What meds were considered but not given or refused? Why? @ -[None] Did you discuss the management of the patient with other professionals (professionals i.e. YOBANY Go, ARTIFICIAL FLOWERS STARCHER, lab, RT, psych nurse, social work job titles, log raft worker, teacher, ict customer support officer, case management associate)? Give summary @ -[No] Was smoking cessation discussed for >3mins.? @ -[No] Was critical care preformed (if so, how long)? @ -[No] Were there social determinants of health that impacted care today? How? (Homelessness, low income, unemployed, alcoholism, drug addiction, transportation, low edu. Level, literacy, decrease access to med. care, [facility], rehab)? @ -[No] Was there de-escalation of care discussed even if they declined (Discuss DNR or withdrawal of care, Hospice)? DNR status @ -[No] What co-morbidities impacted this encounter? (DM, HTN, Smoking, COPD, CAD, Cancer, CVA, ARF, Chemo, Hep., AIDS, mental health diagnosis, sleep apnea, morbid obesity)? @ -[None] Was patient admitted / discharged? Hospital course, mention meds given and route, prescriptions, significant lab abnormalities, going to OR and other pertinent info. @ -[Patient is a 20-year-old man arriving to have evaluation for palpitations. The history and physical as well as evaluation are unremarkable. At this point patient stable to have further evaluation as outpatient. Discussed appropriate follow-up and the return parameters. Undiagnosed new problem with uncertain prognosis? @ -[No] Drug Therapy requiring intensive monitoring for toxicity (Heparin, Nitro, Insulin, Cardizem)? @ -[No] Were any procedures done? @ -[No] Diagnosis/symptom? @ -[Acute palpitations Acute, or Chronic, or Acute on Chronic? @ -[Acute Uncomplicated (without systemic symptoms) or Complicated (systemic symptoms)? @ -[Uncomplicated Side effects of treatment? @ -[No] Exacerbation, Progression, or Severe Exacerbation? @ -[No] Poses a threat to life or bodily function? How? (Chest pain, [place], [place], pneumonia, PE, COPD, DKA, ARF, appy, cholecystitis, CVA, Diverticulitis, Homicidal, Suicidal, threat to staff... and all critical care pts) @ -[No] All treatments are based on ideal body weight as in ED triage Disposition Clinical Impression: Palpitations Disposition: HOME SELF-CARE Condition: Good Instructions (If sedation given, give patient instructions): Heart Palpitations (DC) Is patient prescribed a controlled substance at d/c from ED?: No Referrals: Maximiliano Nixno MD [Primary Care Provider] - 1-2 days
--- NOTE | 2025-04-30 08:17 | XR ---
EXAMINATION TYPE: XR chest 2V DATE OF EXAM: 04/30/2025 8:12 AM COMPARISON: 04/16/2025 CLINICAL INDICATION: Male, 20 years old with history of palpitations, chest pain TECHNIQUE: XR chest 2V view(s) obtained. FINDINGS: The heart size is normal. The pulmonary vasculature is normal. The lungs are clear. IMPRESSION: 1. No acute pulmonary process. [facility], , 04/30/2025 8:15 AM
[2025-04-30 08:50] VITALS: PULSE 58; RESP 16
[2025-04-30 09:24] VITALS: BP 110/50; TEMP 98.6
== END 2025-04-30 09:24 | disposition home or self-care (01) ==
LOC: EC 07:33
DX: R00.2 Palpitations (principal); F17.290 Nicotine dependence, other tobacco product, uncomplicated
CPT/HCPCS: 71046; 93005; 99285

== ENCOUNTER 2025-05-02 17:47 | Emergency (ER) | payer OTHER ==
[2025-05-02 17:56] VITALS: TEMP 98.6
--- NOTE | 2025-05-02 18:05 | ED ---
General Adult HPI - General Chief complaint: Chest Pain Stated complaint: cardiac symptoms Time Seen by Provider: 05/02/25 18:03 Source: patient, EMS, RN notes reviewed, old records reviewed Mode of arrival: EMS Limitations: no limitations - History of Present Illness Initial comments: 20-year-old male presented the ER via EMS for evaluation of chest discomfort. Patient states he recently has been using methamphetamine. He states he last smoked meth around 5 PM. He states shortly after smoking he was laying on his bed and starting to experience a burning centralized chest discomfort. He reports it felt like "heartburn" with radiation from right chest to left chest and left arm. He admits to shortness of breath during that time. He states his chest discomfort and shortness of breath has currently resolved. He has not taken anything for his current symptoms. No known cardiac history. Patient denies any other drug use. Patient denies alcohol use today but states he heavily drank yesterday. Denies any fevers, cough, congestion, dizziness, lightheadedness, nausea, vomiting, abdominal pain or other complaints. Patient denies SI or HI. - Related Data Previous Rx's Medication Instructions Recorded DULoxetine HCL [Cymbalta] 30 mg PO DAILY #30 cap 10/24/24 DULoxetine HCL [Cymbalta] 60 mg PO DAILY 30 Days #30 cap 10/24/24 Nicotine Gum (Polacrilex) 2 mg BUCCAL Q2HR PRN pieceofgum 10/24/24 [Nicorette] QUEtiapine [SEROquel] 50 mg PO HS 30 Days #30 tab 10/24/24 QUEtiapine [SEROquel] 100 mg PO HS 30 Days #30 tab 10/24/24 hydrOXYzine pamoate [Vistaril] 50 mg PO Q6HR PRN 30 Days #60 cap 10/24/24 Allergies Allergy/AdvReac Type Severity Reaction Status Date / Time No Known Allergies Allergy Verified 04/30/25 07:37 Review of Systems ROS Statement: Those systems with pertinent positive or pertinent negative responses have been documented in the HPI. ROS Other: All systems not noted in ROS Statement are negative. 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 Absent: respiratory distress, wheezes, rales, rhonchi, stridor Cardiovascular Exam: Present: regular rate, normal rhythm, normal heart sounds. Absent: systolic murmur, diastolic murmur, rubs, gallop, clicks Extremities exam: Present: normal inspection, full ROM, normal capillary refill. Absent: tenderness, pedal edema, joint swelling, calf tenderness Neurological exam: Present: alert, oriented X3, CN II-XII intact Skin exam: Present: warm, dry, intact, normal color. Absent: rash Course Vital Signs 05/02/25 05/02/25 05/02/25 17:52 17:56 18:33 Temperature 98.6 F Pulse Rate 65 66 Respiratory 16 17 Rate Blood Pressure 137/89 133/80 O2 Sat by Pulse 100 100 Oximetry 05/02/25 19:56 Temperature Pulse Rate 104 H Respiratory 16 Rate Blood Pressure 147/96 O2 Sat by Pulse 100 Oximetry - Reevaluation(s) Reevaluation #1: 05/02/25 19:45 Patient reevaluated has no signs of acute distress. Patient educated on laboratory studies and chest x-ray. Patient requesting discharge. Patient also requesting rehab information. Patient denies SI or HI. EKG Findings - EKG Comments: EKG Findings:: EKG taken at 17: 57 showing a sinus rhythm with sinus arrhythmia. Early repolarization. Ventricular rate 60, [place] interval 156, QRS duration 98, QT/QTc 391/392. Medical Decision Making - Medical Decision Making Was pt. sent in by a medical professional or institution (, PA, HOTEL VALET ATTENDANT, urgent care, hospital, or assisted...) When possible be specific @ -No Did you speak to anyone other than the patient for history (EMS, parent, family, police, friend...)? What history was obtained from this source @ -No Did you review nursing and triage notes (agree or disagree)? Why? @ -I reviewed and agree with nursing and triage notes Were old charts reviewed (outside hosp., previous admission, EMS record, old EKG, old radiological studies, urgent care reports/EKG's, assisted records)? Report findings @ -Prior ER visits Differential Diagnosis (chest pain, altered mental status, abdominal pain women, abdominal pain men, vaginal bleeding, weakness, fever, dyspnea, syncope, headache, dizziness, GI bleed, back pain, seizure, CVA, palpatations, mental health, musculoskeletal)? @ -Differential Chest Pain: Stable Angina, Unstable Angina, STEMI, NSTEMI Aortic Dissection, Pneumothorax, Musculoskeletal, Esophageal Spasm GERD, Cholecystitis, Pancreatitis, Zoster, this is not meant to be an all-inclusive list. EKG interpreted by me (3pts min.). @ -As above X-rays interpreted by me (1pt min.). @ -CXR interpreted me negative for focal consolidations or pneumothorax pleural CT interpreted by me (1pt min.). @ -None done U/S interpreted by me (1pt. min.). @ -None done What testing was considered but not performed or refused? (CT, X-rays, U/S, labs)? Why? @ -None What meds were considered but not given or refused? Why? @ -None Did you discuss the management of the patient with other professionals (torsten morton i.e. , PA, HOTEL VALET ATTENDANT, lab, RT, psych nurse, social science research assistant, repairing calibrator, teacher, systems support officer, briefcase sewer)? Give summary @ -No Was smoking cessation discussed for >3mins.? @ -No Was critical care preformed (if so, how long)? @ -No Were there social determinants of health that impacted care today? How? (Homelessness, low income, unemployed, alcoholism, drug addiction, transportation, low edu. Level, literacy, decrease access to med. care, senior care, rehab)? @ -No Was there de-escalation of care discussed even if they declined (Discuss DNR or withdrawal of care, Hospice)? DNR status @ -No What co-morbidities impacted this encounter? (DM, HTN, Smoking, COPD, CAD, Cancer, CVA, ARF, Chemo, Hep., AIDS, mental health diagnosis, sleep apnea, morbid obesity)? @ -Drug abuse Was patient admitted / discharged? Hospital course, mention meds given and route, prescriptions, significant lab abnormalities, going to OR and other pertinent info. @ -Discharge. 20-year-old male presented the ER via EMS for evaluation of chest discomfort after methamphetamine use. Upon arrival vital signs stable patient in no signs of distress nontoxic-appearing. Patient reporting resolution of chest discomfort upon arrival to the emergency department. Laboratory studies unimpressive. Troponin undetectable, <0.012. Patient received 1 L IV fluid bolus. Patient refused to provide urine analysis and requesting discharge upon reevaluation. Patient also requesting rehabilitation information, this was provided. I highly recommended he stop drug use. Return parameters discussed. Patient discharged in stable condition with follow-up to PCP. Patient verbally expressed understanding and agreement with care plan. Case discussed with ED attending, Dr. Strong. Undiagnosed new problem with uncertain prognosis? @ -No Drug Therapy requiring intensive monitoring for toxicity (Heparin, Nitro, Insulin, Cardizem)? @ -No Were any procedures done? @ -No Diagnosis/symptom? @ -Chest pain Acute, or Chronic, or Acute on Chronic? @ -Acute Uncomplicated (without systemic symptoms) or Complicated (systemic symptoms)? @ -Uncomplicated Side effects of treatment? @ -No Exacerbation, Progression, or Severe Exacerbation? @ -No Poses a threat to life or bodily function? How? (Chest pain, [place], [place], pneumonia, PE, COPD, DKA, ARF, appy, cholecystitis, CVA, Diverticulitis, Homicidal, Suicidal, threat to staff... and all critical care pts) @ -Low - Lab Data Result diagrams: 05/02/25 18:08 05/02/25 18:08 Lab Results 05/02/25 05/02/25 05/02/25 Range/Units 18:08 18:08 18:08 WBC 8.67 (4.50-10.00) 10*3/uL RBC 5.17 (4.40-5.60) 10*6/uL Hgb 16.5 (13.0-17.0) g/dL Hct 47.2 (39.6-50.0) % MCV 91.3 (80.0-97.0) fL MCH 31.9 (27.0-32.0) pg MCHC 35.0 (32.0-37.0) g/dL Plt Count 291 (140-440) 10*3/uL MPV 8.5 L (9.5-12.2) fL Immature Gran % (Auto) 0.2 % Neutrophils % 74.2 % Lymphocytes % 17.3 % Monocytes % 7.4 % Eosinophils % 0.2 % Basophils % 0.7 % Immature Gran # 0.02 (0.00-0.04) 10*3/uL Neutrophils # 6.43 (1.80-7.70) 10*3/uL Lymphocytes # 1.50 (0.90-5.00) 10*3/uL Monocytes # 0.64 (0.20-1.00) 10*3/uL Eosinophils # 0.02 L (0.04-0.35) 10*3/uL Basophils # 0.06 (0.00-0.10) 10*3/uL PT 12.3 (10.0-12.5) sec INR 1.1 (<1.2) APTT 24.7 (22.0-30.0) sec Sodium 137 (137-145) mmol/L Potassium 4.1 (3.5-5.1) mmol/L Chloride 100 (98-107) mmol/L Carbon Dioxide 24 (22-30) mmol/L Anion Gap 13 mmol/L BUN 13 (9-20) mg/dL Creatinine 0.76 (0.66-1.25) mg/dL Est GFR (CKD-EPI)AfAm >90 (>60 ml/min/1.73 sqM) Est GFR (CKD-EPI)NonAf >90 (>60 ml/min/1.73 sqM) Glucose 80 (74-99) mg/dL Calcium 11.6 H (8.4-10.2) mg/dL Magnesium 2.1 (1.6-2.3) mg/dL Total Bilirubin 1.2 (0.2-1.3) mg/dL AST 21 (17-59) U/L ALT 14 (4-49) U/L Alkaline Phosphatase 67 (38-126) U/L Troponin I (0.000-0.034) ng/mL Total Protein 7.6 (6.3-8.2) g/dL Albumin 4.8 (3.5-5.0) g/dL / Range/Units 18:08 WBC (4.50-10.00) 10*3/uL RBC (4.40-5.60) 10*6/uL Hgb (13.0-17.0) g/dL Hct (39.6-50.0) % MCV (80.0-97.0) fL MCH (27.0-32.0) pg MCHC (32.0-37.0) g/dL Plt Count (140-440) 10*3/uL MPV (9.5-12.2) fL Immature Gran % (Auto) % Neutrophils % % Lymphocytes % % Monocytes % % Eosinophils % % Basophils % % Immature Gran # (0.00-0.04) 10*3/uL Neutrophils # (1.80-7.70) 10*3/uL Lymphocytes # (0.90-5.00) 10*3/uL Monocytes # (0.20-1.00) 10*3/uL Eosinophils # (0.04-0.35) 10*3/uL Basophils # (0.00-0.10) 10*3/uL PT (10.0-12.5) sec INR (<1.2) APTT (22.0-30.0) sec Sodium (137-145) mmol/L Potassium (3.5-5.1) mmol/L Chloride (98-107) mmol/L Carbon Dioxide (22-30) mmol/L Anion Gap mmol/L BUN (9-20) mg/dL Creatinine (0.66-1.25) mg/dL Est GFR (CKD-EPI)AfAm (>60 ml/min/1.73 sqM) Est GFR (CKD-EPI)NonAf (>60 ml/min/1.73 sqM) Glucose (74-99) mg/dL Calcium (8.4-10.2) mg/dL Magnesium (1.6-2.3) mg/dL Total Bilirubin (0.2-1.3) mg/dL AST (17-59) U/L ALT (4-49) U/L Alkaline Phosphatase (38-126) U/L Troponin I <0.012 (0.000-0.034) ng/mL Total Protein (6.3-8.2) g/dL Albumin (3.5-5.0) g/dL - Radiology Data Radiology results: report reviewed, image reviewed Disposition Clinical Impression: Chest pain Disposition: HOME SELF-CARE Condition: Stable Instructions (If sedation given, give patient instructions): Chest Pain (ED) Additional Instructions: I have recommend you stop using drugs. Follow-up with PCP return to the ER for any new or worsened concerns Is patient prescribed a controlled substance at d/c from ED?: No Referrals: Maximiliano Nixon MD [Primary Care Provider] - 1-2 days Forms: In Substance Abuse Facilities, NA Meetings in [place], Outpatient Counseling, Outpatient Therapy List Time of Disposition: 19:44
[2025-05-02] MEDS: SODIUM CHLORIDE 0.9% 1,000 ML IV STA (18:34)
[2025-05-02 18:50] LABS: Basophils # (A) 0.06 10*3/uL (0.00-0.10); Basophils % (A) 0.7 %; Eosinophils # (A) 0.02 10*3/uL (0.04-0.35); Eosinophils % (A) 0.2 %; HCT 47.2 % (39.6-50.0); HGB 16.5 g/dL (13.0-17.0); Lymphocytes % (A) 17.3 %; MCH 31.9 pg (27.0-32.0); MCV 91.3 fL (80.0-97.0); Mean Platelet Volume 8.5 fL (9.5-12.2); Monocytes # (A) 0.64 10*3/uL (0.20-1.00); Monocytes % (A) 7.4 %; Neutrophils # (A) 6.43 10*3/uL (1.80-7.70); Neutrophils % (A) 74.2 %; Platelet Count 291 10*3/uL (140-440); RBC 5.17 10*6/uL (4.40-5.60); RDW 11.8 % (11.5-14.5); WBC 8.67 10*3/uL (4.50-10.00)
--- NOTE | 2025-05-02 18:52 | XR ---
EXAMINATION TYPE: XR chest 2V DATE OF EXAM: 05/02/2025 6:49 PM COMPARISON: Prior chest radiograph 04/30/2025. CLINICAL INDICATION: Male, 20 years old with history of Chest Pain; [facility] TECHNIQUE: XR chest 2V Frontal and lateral views of the chest. FINDINGS: Lungs/Pleura: There is no evidence of pleural effusion, focal consolidation, or pneumothorax. Pulmonary vascularity: Unremarkable. Heart/mediastinum: Cardiomediastinal silhouette is unremarkable. Musculoskeletal: No acute osseous pathology. Other findings: None IMPRESSION: No acute cardiopulmonary disease/process. [facility], , 05/02/2025 6:50 PM
[2025-05-02 19:00] LABS: INR 1.1 (<1.2); Partial Thromboplastin Time 24.7 sec (22.0-30.0); Prothrombin Time 12.3 sec (10.0-12.5)
[2025-05-02 19:07] LABS: ALT 14 U/L (4-49); African American GFR (CKD) >90 (>60 ml/min/1.73 sqM); Albumin 4.8 g/dL (3.5-5.0); Anion Gap 13 mmol/L; Blood Urea Nitrogen 13 mg/dL (9-20); Calcium 11.6 mg/dL (8.4-10.2); Carbon Dioxide 24 mmol/L (22-30); Chloride 100 mmol/L (98-107); Glucose 80 mg/dL (74-99); Non-African American GFR(CKD) >90 (>60 ml/min/1.73 sqM); Sodium 137 mmol/L (137-145); Total Bilirubin 1.2 mg/dL (0.2-1.3); Total Protein 7.6 g/dL (6.3-8.2)
[2025-05-02 19:15] LABS: AST 21 U/L (17-59); Alkaline Phosphatase 67 U/L (38-126); Magnesium 2.1 mg/dL (1.6-2.3); Potassium 4.1 mmol/L (3.5-5.1)
[2025-05-02 19:56] VITALS: BP 147/96; PULSE 104; RESP 16
== END 2025-05-02 19:59 | disposition home or self-care (01) ==
LOC: EC 17:47
DX: R07.89 Other chest pain (principal); F17.290 Nicotine dependence, other tobacco product, uncomplicated
CPT/HCPCS: 36415; 71046; 80053; 83735; 84484; 85025; 85610; 85730; 96360; 99285

== ENCOUNTER 2025-05-06 05:47 | Emergency (ER) | payer OTHER ==
--- NOTE | 2025-05-06 07:04 | ED ---
General Adult HPI - General Chief complaint: Extremity Problem,Nontraumatic Stated complaint: feet pain Time Seen by Provider: 05/06/25 05:55 Source: patient, EMS, RN notes reviewed Mode of arrival: EMS Limitations: no limitations - History of Present Illness Initial comments: 20-year-old male presents emergency department for complaint of chest pain. P atient states he has left-sided chest pain intermittent sometimes pleuritic. Patient states that it worsened increasing methamphetamines today. Patient states he has no prior cardiac history. Patient states he has discoloration of feet but this is chronic for him. Patient dates he has skin burning all over. Patient denies any fevers or chills no cough or cold-like symptoms. - Related Data Previous Rx's Medication Instructions Recorded DULoxetine HCL [Cymbalta] 30 mg PO DAILY #30 cap 10/24/24 DULoxetine HCL [Cymbalta] 60 mg PO DAILY 30 Days #30 cap 10/24/24 Nicotine Gum (Polacrilex) 2 mg BUCCAL Q2HR PRN pieceofgum 10/24/24 [Nicorette] QUEtiapine [SEROquel] 50 mg PO HS 30 Days #30 tab 10/24/24 QUEtiapine [SEROquel] 100 mg PO HS 30 Days #30 tab 10/24/24 hydrOXYzine pamoate [Vistaril] 50 mg PO Q6HR PRN 30 Days #60 cap 10/24/24 Allergies Allergy/AdvReac Type Severity Reaction Status Date / Time No Known Allergies Allergy Verified 05/06/25 05:49 Review of Systems ROS Statement: Those systems with pertinent positive or pertinent negative responses have been documented in the HPI. ROS Other: All systems not noted in ROS Statement are negative. 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 History of Any Multi-Drug Resistant Organisms: None Reported Past Surgical History: No Surgical Hx Reported Past Psychological History: ADD/ADHD, Anxiety, Bipolar Smoking Status: Current every day smoker, Vaper Past Alcohol Use History: Occasional Past Drug Use History: Marijuana, Methamphetamine - Past Family History Mother Family Medical History: Hypertension General Exam Limitations: no limitations General appearance: alert, in no apparent distress Head exam: Present: atraumatic, normocephalic, normal inspection Eye exam: Present: normal appearance, PERRL, EOMI. Absent: scleral icterus, conjunctival injection, periorbital swelling ENT exam: Present: normal exam, normal oropharynx, mucous membranes moist Neck exam: Present: normal inspection, full ROM. Absent: tenderness, meningismus, lymphadenopathy Respiratory exam: Present: normal lung sounds bilaterally. Absent: respiratory distress, wheezes, rales, rhonchi, stridor Cardiovascular Exam: Present: regular rate, normal rhythm, normal heart sounds. Absent: systolic murmur, diastolic murmur, rubs, gallop, clicks Extremities exam: Present: normal capillary refill, other (Extremities neurovascular intact with no obvious discoloration sores or lesions). Absent: pedal edema, calf tenderness Neurological exam: Present: alert, oriented X3, CN II-XII intact, reflexes normal. Absent: motor sensory deficit Course Vital Signs 05/06/25 05:49 Temperature 98.1 F Pulse Rate 73 Respiratory 18 Rate Blood Pressure 132/74 O2 Sat by Pulse 100 Oximetry EKG Findings - EKG Comments: EKG Findings:: EKG performed at 6: 36 sinus rhythm with a rate of 86 [place] 144 QRS 97 QT/QTc 325/368 - EKG Results: EKG: interpreted by JEREMIAH Medical Decision Making - Medical Decision Making Was pt. sent in by a medical professional or institution (, PA, MANAGER FIRE, urgent care, hospital, or senior living...) When possible be specific @ -No Did you speak to anyone other than the patient for history (EMS, parent, family, police, friend...)? What history was obtained from this source @ -No Did you review nursing and triage notes (agree or disagree)? Why? @ -I reviewed and agree with nursing and triage notes Were old charts reviewed (outside hosp., previous admission, EMS record, old EKG, old radiological studies, urgent care reports/EKG's, senior living records)? Report findings @ -No old charts were reviewed Differential Diagnosis (chest pain, altered mental status, abdominal pain women, abdominal pain men, vaginal bleeding, weakness, fever, dyspnea, syncope, headache, dizziness, GI bleed, back pain, seizure, CVA, palpatations, mental health, musculoskeletal)? @ -Differential Palpitations Ventricular arrhythmias, atrial arrhythmias, myocardial infarction, anemia, thyrotoxicosis, electrolyte imbalance, hypokalemia, pulmonary embolism, pulmonary disease, drugs, alcohol, anxiety, stress.... This is not meant to be an all-inclusive list. EKG interpreted by me (3pts min.). @ -As above X-rays interpreted by me (1pt min.). @ -Chest x-ray shows no acute cardiopulmonary process. CT interpreted by me (1pt min.). @ -None done U/S interpreted by me (1pt. min.). @ -None done What testing was considered but not performed or refused? (CT, X-rays, U/S, l abs)? Why? @ -None What meds were considered but not given or refused? Why? @ -None Did you discuss the management of the patient with other professionals (professionals i.e. , PA, MANAGER FIRE, lab, RT, psych nurse, rn social services, threading machine setter, teacher, environmental officer, foster care case manager)? Give summary @ -No Was smoking cessation discussed for >3mins.? @ -No Was critical care preformed (if so, how long)? @ -No Were there social determinants of health that impacted care today? How? (Homelessness, low income, unemployed, alcoholism, drug addiction, transportation, low edu. Level, literacy, decrease access to med. care, retirement, rehab)? @ -No Was there de-escalation of care discussed even if they declined (Discuss DNR or withdrawal of care, Hospice)? DNR status @ -No What co-morbidities impacted this encounter? (DM, HTN, Smoking, COPD, CAD, Cancer, CVA, ARF, Chemo, Hep., AIDS, mental health diagnosis, sleep apnea, morbid obesity)? @ -None Was patient admitted / discharged? Hospital course, mention meds given and route, prescriptions, significant lab abnormalities, going to OR and other pertinent info. @ -[Discharge patient forward including labs, EKG and chest x-ray. Patient does abuse methamphetamines. Patient symptomatically related to this. Patient had negative troponin. Patient advised to follow-up with rehab and return for discussed. Undiagnosed new problem with uncertain prognosis? @ -No Drug Therapy requiring intensive monitoring for toxicity (Heparin, Nitro, Insulin, Cardizem)? @ -No Were any procedures done? @ -No Diagnosis/symptom? @ -Methamphetamine abuse, chest wall pain Acute, or Chronic, or Acute on Chronic? @ -Acute Uncomplicated (without systemic symptoms) or Complicated (systemic symptoms)? @ -Complicated Side effects of treatment? @ -No Exacerbation, Progression, or Severe Exacerbation? @ -No Poses a threat to life or bodily function? How? (Chest pain, [place], [place], pneumonia, PE, COPD, DKA, ARF, appy, cholecystitis, CVA, Diverticulitis, Homicidal, Suicidal, threat to staff... and all critical care pts) @ -Drug abuse - Lab Data Result diagrams: 05/06/25 07:52 05/06/25 07:52 Lab Results 05/06/25 05/06/25 05/06/25 Range/Units 07:52 07:52 07:52 WBC 8.44 (4.50-10.00) 10*3/uL RBC 5.34 (4.40-5.60) 10*6/uL Hgb 17.0 (13.0-17.0) g/dL Hct 48.1 (39.6-50.0) % MCV 90.1 (80.0-97.0) fL MCH 31.8 (27.0-32.0) pg MCHC 35.3 (32.0-37.0) g/dL Plt Count 344 (140-440) 10*3/uL MPV 8.3 L (9.5-12.2) fL Immature Gran % (Auto) 0.1 % Neutrophils % 61.8 % Lymphocytes % 24.9 % Monocytes % 11.6 % Eosinophils % 0.8 % Basophils % 0.8 % Immature Gran # 0.01 (0.00-0.04) 10*3/uL Neutrophils # 5.21 (1.80-7.70) 10*3/uL Lymphocytes # 2.10 (0.90-5.00) 10*3/uL Monocytes # 0.98 (0.20-1.00) 10*3/uL Eosinophils # 0.07 (0.04-0.35) 10*3/uL Basophils # 0.07 (0.00-0.10) 10*3/uL Sodium 138 (137-145) mmol/L Potassium 3.7 (3.5-5.1) mmol/L Chloride 100 (98-107) mmol/L Carbon Dioxide 24 (22-30) mmol/L Anion Gap 14 mmol/L BUN 14 (9-20) mg/dL Creatinine 0.84 (0.66-1.25) mg/dL Est GFR (CKD-EPI)AfAm >90 (>60 ml/min/1.73 sqM) Est GFR (CKD-EPI)NonAf >90 (>60 ml/min/1.73 sqM) Glucose 102 H (74-99) mg/dL Calcium 11.8 H (8.4-10.2) mg/dL Magnesium 2.2 (1.6-2.3) mg/dL Total Bilirubin 1.1 (0.2-1.3) mg/dL AST 22 (17-59) U/L ALT 13 (4-49) U/L Alkaline Phosphatase 77 (38-126) U/L Troponin I <0.012 (0.000-0.034) ng/mL Total Protein 8.2 (6.3-8.2) g/dL Albumin 5.3 H (3.5-5.0) g/dL Disposition Clinical Impression: Substance abuse, Methamphetamine abuse, Chest pain Disposition: HOME SELF-CARE Condition: Stable Additional Instructions: Please return to the Emergency Department if symptoms worsen or any other concerns. Is patient prescribed a controlled substance at d/c from ED?: No Referrals: Maximiliano Nixon MD [Primary Care Provider] - 1-2 days Time of Disposition: 09:11
--- NOTE | 2025-05-06 07:27 | XR ---
Chest, 2 view. CLINICAL INDICATION: Male, 20 years old with history of Chest Pain COMPARISON: 05/02/2025 TECHNIQUE: PA and lateral views the chest are obtained. FINDINGS: The lungs are clear and there is no consolidative or interstitial opacity. There is no pleural effusion or pneumothorax. The heart, pulmonary vasculature, mediastinum and mega appear normal. The osseous structures are intact. IMPRESSION: No significant abnormality seen. No acute cardiopulmonary disease. [facility], , 05/06/2025 7:24 AM
[2025-05-06 08:00] LABS: Basophils # (A) 0.07 10*3/uL (0.00-0.10); Basophils % (A) 0.8 %; Eosinophils # (A) 0.07 10*3/uL (0.04-0.35); Eosinophils % (A) 0.8 %; HCT 48.1 % (39.6-50.0); Lymphocytes % (A) 24.9 %; MCH 31.8 pg (27.0-32.0); MCHC 35.3 g/dL (32.0-37.0); MCV 90.1 fL (80.0-97.0); Mean Platelet Volume 8.3 fL (9.5-12.2); Monocytes # (A) 0.98 10*3/uL (0.20-1.00); Monocytes % (A) 11.6 %; Neutrophils # (A) 5.21 10*3/uL (1.80-7.70); Neutrophils % (A) 61.8 %; Platelet Count 344 10*3/uL (140-440); RBC 5.34 10*6/uL (4.40-5.60); RDW 11.6 % (11.5-14.5); WBC 8.44 10*3/uL (4.50-10.00)
[2025-05-06 08:23] LABS: ALT 13 U/L (4-49); AST 22 U/L (17-59); African American GFR (CKD) >90 (>60 ml/min/1.73 sqM); Albumin 5.3 g/dL (3.5-5.0); Alkaline Phosphatase 77 U/L (38-126); Anion Gap 14 mmol/L; Blood Urea Nitrogen 14 mg/dL (9-20); Calcium 11.8 mg/dL (8.4-10.2); Carbon Dioxide 24 mmol/L (22-30); Chloride 100 mmol/L (98-107); Glucose 102 mg/dL (74-99); Magnesium 2.2 mg/dL (1.6-2.3); Non-African American GFR(CKD) >90 (>60 ml/min/1.73 sqM); Potassium 3.7 mmol/L (3.5-5.1); Sodium 138 mmol/L (137-145); Total Bilirubin 1.1 mg/dL (0.2-1.3); Total Protein 8.2 g/dL (6.3-8.2)
[2025-05-06] MEDS: LORazepam 1 MG TAB PO STA (09:50)
[2025-05-06] MEDS: KETOROLAC 15 MG/ML 1 ML VIAL IM STA (09:51)
[2025-05-06 09:56] VITALS: BP 119/66; PULSE 63; RESP 20; TEMP 97.9
[2025-05-06 11:21] LABS: C Reactive Protein <0.5 mg/dL (<1.0)
== END 2025-05-06 09:56 | disposition home or self-care (01) ==
LOC: EC 05:47
DX: R07.89 Other chest pain (principal); F15.10 Other stimulant abuse, uncomplicated; F17.290 Nicotine dependence, other tobacco product, uncomplicated
CPT/HCPCS: 36415; 93005; 80053; 83735; 84484; 85025; 86140; 71046; 99284; 96372; J1885

== ENCOUNTER 2025-05-07 06:03 | Emergency (ER) | payer OTHER ==
[2025-05-07 06:18] VITALS: BP 113/73; PULSE 103; RESP 18; TEMP 98.3
--- NOTE | 2025-05-07 06:31 | ED ---
General Adult HPI - General Chief complaint: Chest Pain Stated complaint: chest pain SOB Time Seen by Provider: 05/07/25 06:30 Source: patient, RN notes reviewed, old records reviewed Mode of arrival: ambulatory Limitations: no limitations - History of Present Illness Initial comments: Quick note: 20-year-old male presented the ER for evaluation of burning chest discomfort. Patient states he had a relapse with methamphetamine and has been in a mejia over the past couple of weeks. He states yesterday he started to experience a burning sensation to his chest. Patient was evaluated and told he had inflammation of his heart and was prescribed Toradol. Patient returns for reevaluation - Related Data Previous Rx's Medication Instructions Recorded DULoxetine HCL [Cymbalta] 30 mg PO DAILY #30 cap 10/24/24 DULoxetine HCL [Cymbalta] 60 mg PO DAILY 30 Days #30 cap 10/24/24 Nicotine Gum (Polacrilex) 2 mg BUCCAL Q2HR PRN pieceofgum 10/24/24 [Nicorette] QUEtiapine [SEROquel] 50 mg PO HS 30 Days #30 tab 10/24/24 QUEtiapine [SEROquel] 100 mg PO HS 30 Days #30 tab 10/24/24 hydrOXYzine pamoate [Vistaril] 50 mg PO Q6HR PRN 30 Days #60 cap 10/24/24 Allergies Allergy/AdvReac Type Severity Reaction Status Date / Time No Known Allergies Allergy Verified 05/07/25 06:15 Review of Systems ROS Statement: Those systems with pertinent positive or pertinent negative responses have been documented in the HPI. ROS Other: All systems not noted in ROS Statement are negative. 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 History of Any Multi-Drug Resistant Organisms: None Reported Past Surgical History: No Surgical Hx Reported Past Psychological History: ADD/ADHD, Anxiety, Bipolar Smoking Status: Current every day smoker, Vaper Past Alcohol Use History: Occasional Past Drug Use History: Marijuana, Methamphetamine - Past Family History Mother Family Medical History: Hypertension General Exam - General Exam Comments Initial Comments: Visual Physical Exam Vital signs reviewed General: Well-appearing, nontoxic, no acute distress. Head: Normocephalic, atraumatic Eyes: PERRLA, EOMI ENT: Airway patent Chest: Nonlabored breathing Skin: No visual rash, normal skin tone Neuro: Alert and oriented 3 Musculoskeletal: No gross abnormalities Limitations: no limitations Course Vital Signs 05/07/25 06:15 Temperature 98.3 F Pulse Rate 103 H Respiratory 18 Rate Blood Pressure 113/73 O2 Sat by Pulse 99 Oximetry Medical Decision Making - Medical Decision Making I performed the quick note portion of this chart. Electronically signed by Terrance Riggs PA-C Was pt. sent in by a medical professional or institution ([facility] Go, CHILD DAY CARE CENTER WORKER, urgent care, hospital, or halfway...) When possible be specific @ -No Did you speak to anyone other than the patient for history (EMS, parent, family, police, friend...)? What history was obtained from this source @ -No Did you review nursing and triage notes (agree or disagree)? Why? @ -I reviewed and agree with nursing and triage notes Were old charts reviewed (outside hosp., previous admission, EMS record, old EKG, old radiological studies, urgent care reports/EKG's, halfway records)? Report findings @ -Prior ER visits. Differential Diagnosis (chest pain, altered mental status, abdominal pain women, abdominal pain men, vaginal bleeding, weakness, fever, dyspnea, syncope, headache, dizziness, GI bleed, back pain, seizure, CVA, palpatations, mental health, musculoskeletal)? @ -Differential Chest Pain:Stable Angina, Unstable Angina, STEMI, NSTEMI Aortic Dissection, Pneumothorax, Musculoskeletal, Esophageal Spasm GERD, Cholecystitis, Pancreatitis, Zoster, this is not meant to be an all-inclusive list. EKG interpreted by me (3pts min.). @ -As above X-rays interpreted by me (1pt min.). @ -CXR interpreted me negative for focal consolidations or pneumothorax. CT interpreted by me (1pt min.). @ -None done U/S interpreted by me (1pt. min.). @ -None done What testing was considered but not performed or refused? (CT, X-rays, U/S, labs)? Why? @ -None What meds were considered but not given or refused? Why? @ -None Did you discuss the management of the patient with other professionals (professionals i.e. YOBANY Go, CHILD DAY CARE CENTER WORKER, lab, RT, psych nurse, certified social workers in health care, chemical dependency nurse, teacher, global chief experience officer, case planner)? Give summary @ -No Was smoking cessation discussed for >3mins.? @ -No Was critical care preformed (if so, how long)? @ -No Were there social determinants of health that impacted care today? How? (Homelessness, low income, unemployed, alcoholism, drug addiction, trans portation, low edu. Level, literacy, decrease access to med. care, [facility], rehab)? @ -No Was there de-escalation of care discussed even if they declined (Discuss DNR or withdrawal of care, Hospice)? DNR status @ -No What co-morbidities impacted this encounter? (DM, HTN, Smoking, COPD, CAD, Cancer, CVA, ARF, Chemo, Hep., AIDS, mental health diagnosis, sleep apnea, morbid obesity)? @ -Drug abuse Was patient admitted / discharged? Hospital course, mention meds given and route, prescriptions, significant lab abnormalities, going to OR and other pertinent info. @ -AMA. 20-year-old male presented to ER for evaluation of chest discomfort. Vital signs stable. Patient seen as a quick note where laboratory studies were obtained. Troponin undetectable, <0.012. Chest x-ray negative. Patient eloped from the ER prior to completion medical treatment. Patient left against medical advice. Case discussed with ED attending, Dr. Estrada. Undiagnosed new problem with uncertain prognosis? @ -No Drug Therapy requiring intensive monitoring for toxicity (Heparin, Nitro, Insu tad, Cardizem)? @ -No Were any procedures done? @ -No Diagnosis/symptom? @ -AMA Acute, or Chronic, or Acute on Chronic? @ -N/A Uncomplicated (without systemic symptoms) or Complicated (systemic symptoms)? @ -N/A Side effects of treatment? @ -No Exacerbation, Progression, or Severe Exacerbation? @ -No Poses a threat to life or bodily function? How? (Chest pain, [place], [place], pneumonia, PE, COPD, DKA, ARF, appy, cholecystitis, CVA, Diverticulitis, Homicidal, Suicidal, threat to staff... and all critical care pts) @ -Undetermined - Lab Data Result diagrams: 05/07/25 06:30 05/07/25 06:30 Lab Results 05/07/25 05/07/25 05/07/25 Range/Units 06:30 06:30 06:30 WBC 6.97 (4.50-10.00) 10*3/uL RBC 5.38 (4.40-5.60) 10*6/uL Hgb 17.3 H (13.0-17.0) g/dL Hct 48.7 (39.6-50.0) % MCV 90.5 (80.0-97.0) fL MCH 32.2 H (27.0-32.0) pg MCHC 35.5 (32.0-37.0) g/dL Plt Count 323 (140-440) 10*3/uL MPV 8.4 L (9.5-12.2) fL Immature Gran % (Auto) 0.3 % Neutrophils % 68.6 % Lymphocytes % 20.8 % Monocytes % 8.8 % Eosinophils % 0.4 % Basophils % 1.1 % Immature Gran # 0.02 (0.00-0.04) 10*3/uL Neutrophils # 4.78 (1.80-7.70) 10*3/uL Lymphocytes # 1.45 (0.90-5.00) 10*3/uL Monocytes # 0.61 (0.20-1.00) 10*3/uL Eosinophils # 0.03 L (0.04-0.35) 10*3/uL Basophils # 0.08 (0.00-0.10) 10*3/uL PT 12.3 (10.0-12.5) sec INR 1.1 (<1.2) APTT 26.6 (22.0-30.0) sec Sodium 139 (137-145) mmol/L Potassium 4.1 (3.5-5.1) mmol/L Chloride 100 (98-107) mmol/L Carbon Dioxide 30 (22-30) mmol/L Anion Gap 9 mmol/L BUN 18 (9-20) mg/dL Creatinine 0.92 (0.66-1.25) mg/dL Est GFR (CKD-EPI)AfAm >90 (>60 ml/min/1.73 sqM) Est GFR (CKD-EPI)NonAf >90 (>60 ml/min/1.73 sqM) Glucose 103 H (74-99) mg/dL Calcium 11.2 H (8.4-10.2) mg/dL Magnesium 2.2 (1.6-2.3) mg/dL Total Bilirubin 0.7 (0.2-1.3) mg/dL AST 18 (17-59) U/L ALT 13 (4-49) U/L Alkaline Phosphatase 82 (38-126) U/L Troponin I (0.000-0.034) ng/mL Total Protein 7.8 (6.3-8.2) g/dL Albumin 4.9 (3.5-5.0) g/dL 05/07/25 Range/Units 06:30 WBC (4.50-10.00) 10*3/uL RBC (4.40-5.60) 10*6/uL Hgb (13.0-17.0) g/dL Hct (39.6-50.0) % MCV (80.0-97.0) fL MCH (27.0-32.0) pg MCHC (32.0-37.0) g/dL Plt Count (140-440) 10*3/uL MPV (9.5-12.2) fL Immature Gran % (Auto) % Neutrophils % % Lymphocytes % % Monocytes % % Eosinophils % % Basophils % % Immature Gran # (0.00-0.04) 10*3/uL Neutrophils # (1.80-7.70) 10*3/uL Lymphocytes # (0.90-5.00) 10*3/uL Monocytes # (0.20-1.00) 10*3/uL Eosinophils # (0.04-0.35) 10*3/uL Basophils # (0.00-0.10) 10*3/uL PT (10.0-12.5) sec INR (<1.2) APTT (22.0-30.0) sec Sodium (137-145) mmol/L Potassium (3.5-5.1) mmol/L Chloride (98-107) mmol/L Carbon Dioxide (22-30) mmol/L Anion Gap mmol/L BUN (9-20) mg/dL Creatinine (0.66-1.25) mg/dL Est GFR (CKD-EPI)AfAm (>60 ml/min/1.73 sqM) Est GFR (CKD-EPI)NonAf (>60 ml/min/1.73 sqM) Glucose (74-99) mg/dL Calcium (8.4-10.2) mg/dL Magnesium (1.6-2.3) mg/dL Total Bilirubin (0.2-1.3) mg/dL AST (17-59) U/L ALT (4-49) U/L Alkaline Phosphatase (38-126) U/L Troponin I <0.012 (0.000-0.034) ng/mL Total Protein (6.3-8.2) g/dL Albumin (3.5-5.0) g/dL - Radiology Data Radiology results: report reviewed, image reviewed Disposition Clinical Impression: Left against medical advice Disposition: LEFT AGAINST MEDICAL ADVICE Condition: Undetermined Referrals: Maximiliano Nixon MD [Primary Care Provider] - 1-2 days Time of Disposition: 08:23
[2025-05-07 07:02] LABS: Basophils # (A) 0.08 10*3/uL (0.00-0.10); Basophils % (A) 1.1 %; Eosinophils # (A) 0.03 10*3/uL (0.04-0.35); Eosinophils % (A) 0.4 %; HCT 48.7 % (39.6-50.0); HGB 17.3 g/dL (13.0-17.0); Lymphocytes # (A) 1.45 10*3/uL (0.90-5.00); Lymphocytes % (A) 20.8 %; MCH 32.2 pg (27.0-32.0); MCHC 35.5 g/dL (32.0-37.0); MCV 90.5 fL (80.0-97.0); Mean Platelet Volume 8.4 fL (9.5-12.2); Monocytes # (A) 0.61 10*3/uL (0.20-1.00); Monocytes % (A) 8.8 %; Neutrophils # (A) 4.78 10*3/uL (1.80-7.70); Neutrophils % (A) 68.6 %; Platelet Count 323 10*3/uL (140-440); RBC 5.38 10*6/uL (4.40-5.60); RDW 11.6 % (11.5-14.5); WBC 6.97 10*3/uL (4.50-10.00)
--- NOTE | 2025-05-07 07:17 | XR ---
EXAMINATION TYPE: XR chest 2V DATE OF EXAM: 05/07/2025 6:56 AM COMPARISON: 05/06/2025 CLINICAL INDICATION: Male, 20 years old with history of Chest Pain, , TECHNIQUE: PA and lateral views FINDINGS: The cardiomediastinal silhouette, aorta, and pulmonary vasculature are within normal limits. There ap pears to be a possible slight pectus carinatum deformity. Lungs and pleural spaces are clear. IMPRESSION: No acute cardiopulmonary process. [facility], Workstation: [facility], 05/07/2025 7:14 AM
[2025-05-07 07:18] LABS: ALT 13 U/L (4-49); AST 18 U/L (17-59); African American GFR (CKD) >90 (>60 ml/min/1.73 sqM); Albumin 4.9 g/dL (3.5-5.0); Alkaline Phosphatase 82 U/L (38-126); Anion Gap 9 mmol/L; Blood Urea Nitrogen 18 mg/dL (9-20); Calcium 11.2 mg/dL (8.4-10.2); Carbon Dioxide 30 mmol/L (22-30); Chloride 100 mmol/L (98-107); Glucose 103 mg/dL (74-99); Magnesium 2.2 mg/dL (1.6-2.3); Non-African American GFR(CKD) >90 (>60 ml/min/1.73 sqM); Potassium 4.1 mmol/L (3.5-5.1); Sodium 139 mmol/L (137-145); Total Bilirubin 0.7 mg/dL (0.2-1.3); Total Protein 7.8 g/dL (6.3-8.2)
[2025-05-07 07:21] LABS: INR 1.1 (<1.2); Partial Thromboplastin Time 26.6 sec (22.0-30.0); Prothrombin Time 12.3 sec (10.0-12.5)
== END 2025-05-07 07:30 | disposition left against medical advice (07) ==
LOC: EC 06:03
DX: R07.89 Other chest pain (principal); F19.10 Other psychoactive substance abuse, uncomplicated; F17.290 Nicotine dependence, other tobacco product, uncomplicated; Z53.29 Procedure and treatment not carried out because of patient's decision for other reasons
CPT/HCPCS: 36415; 71046; 80053; 83735; 84484; 85025; 85610; 85730; 93005; 99285

== ENCOUNTER 2025-05-11 09:46 | Emergency (ER) | payer OTHER ==
[2025-05-11 09:53] VITALS: BP 137/76; PULSE 72; RESP 20; TEMP 98.9
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
== END 2025-05-11 10:17 | disposition home or self-care (01) ==
LOC: EC 09:46
DX: S00.531A Contusion of lip, initial encounter (principal); F17.290 Nicotine dependence, other tobacco product, uncomplicated; X58.XXXA Exposure to other specified factors, initial encounter
CPT/HCPCS: 99283

== ENCOUNTER 2025-05-13 12:00 | Emergency (ER) | payer OTHER ==
[2025-05-13 12:04] VITALS: RESP 18; TEMP 98.2
[2025-05-13] MEDS ORDERED: ACETAMINOPHEN TAB 325 MG TAB PO PRN (12:37)
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
[2025-05-13 12:59] VITALS: BP 147/92; PULSE 57
== END 2025-05-13 13:13 | disposition home or self-care (01) ==
LOC: EC 12:00
DX: S00.531A Contusion of lip, initial encounter (principal); F17.290 Nicotine dependence, other tobacco product, uncomplicated; X58.XXXA Exposure to other specified factors, initial encounter
CPT/HCPCS: 99283

== ENCOUNTER 2025-05-14 10:45 | Emergency (ER) | payer OTHER ==
--- NOTE | 2025-05-14 11:03 | ED ---
General Adult HPI - General Chief complaint: Dental/Oral Stated complaint: Swollen Lip Time Seen by Provider: 05/14/25 10:53 Source: patient, RN notes reviewed Mode of arrival: ambulatory Limitations: no limitations - History of Present Illness Initial comments: 20-year-old male presents emergency department complaint of upper lip swelling. Patient has been seen in the emergency department all times for similar complaints he is on antibiotics he states it drained out pus today which is improving symptoms. Patient states he needs clearance to go to rehab today. Patient appears chills no other complaints. - Related Data Previous Rx's Medication Instructions Recorded DULoxetine HCL [Cymbalta] 30 mg PO DAILY #30 cap 10/24/24 DULoxetine HCL [Cymbalta] 60 mg PO DAILY 30 Days #30 cap 10/24/24 Nicotine Gum (Polacrilex) 2 mg BUCCAL Q2HR PRN pieceofgum 10/24/24 [Nicorette] QUEtiapine [SEROquel] 50 mg PO HS 30 Days #30 tab 10/24/24 QUEtiapine [SEROquel] 100 mg PO HS 30 Days #30 tab 10/24/24 hydrOXYzine pamoate [Vistaril] 50 mg PO Q6HR PRN 30 Days #60 cap 10/24/24 Clindamycin [Cleocin] 300 mg PO TID #42 cap 05/11/25 Allergies Allergy/AdvReac Type Severity Reaction Status Date / Time No Known Allergies Allergy Verified 05/14/25 10:52 Review of Systems ROS Statement: Those systems with pertinent positive or pertinent negative responses have been documented in the HPI. ROS Other: All systems not noted in ROS Statement are negative. Past Medical History Additional Past Medical History / Comment(s): ADHD, depression, anxiety, previou s meth user clean 6 month 10/08 History of Any Multi-Drug Resistant Organisms: None Reported Past Surgical History: No Surgical Hx Reported Past Psychological History: ADD/ADHD, Anxiety, Bipolar Past Drug Use History: Marijuana, Methamphetamine - Past Family History Mother Family Medical History: Hypertension General Exam Limitations: no limitations General appearance: alert, in no apparent distress Head exam: Present: atraumatic, normocephalic, normal inspection Eye exam: Present: normal appearance, PERRL, EOMI. Absent: scleral icterus, conjunctival injection, periorbital swelling ENT exam: Present: mucous membranes moist, TM's normal bilaterally. Absent: normal exam, normal oropharynx (Lower lip swelling, there is open sore small nonpurulent drainage) Neck exam: Present: normal inspection, full ROM. Absent: tenderness, meningismus, lymphadenopathy Respiratory exam: Present: normal lung sounds bilaterally. Absent: respiratory distress, wheezes, rales, rhonchi, stridor Cardiovascular Exam: Present: regular rate, normal rhythm, normal heart sounds. Absent: systolic murmur, diastolic murmur, rubs, gallop, clicks GI/Abdominal exam: Present: soft, normal bowel sounds. Absent: distended, tenderness, guarding, rebound, rigid Course Vital Signs 05/14/25 05/14/25 10:50 11:22 Temperature 97.9 F 98.0 F Pulse Rate 55 L 58 L Respiratory 16 18 Rate Blood Pressure 145/82 138/80 O2 Sat by Pulse 98 98 Oximetry Medical Decision Making - Medical Decision Making Was pt. sent in by a medical professional or institution (, PA, FLOWER MACHINE OPERATOR, urgent care, hospital, or assisted...) When possible be specific @ -No Did you speak to anyone other than the patient for history (EMS, parent, family, police, friend...)? What history was obtained from this source @ -No Did you review nursing and triage notes (agree or disagree)? Why? @ -I reviewed and agree with nursing and triage notes Were old charts reviewed (outside hosp., previous admission, EMS record, old EKG, old radiological studies, urgent care reports/EKG's, assisted records)? Report findings @ -No old charts were reviewed Differential Diagnosis (chest pain, altered mental status, abdominal pain women, abdominal pain men, vaginal bleeding, weakness, fever, dyspnea, syncope, headache, dizziness, GI bleed, back pain, seizure, CVA, palpatations, mental health, musculoskeletal)? @Lip contusion hematoma abscess EKG interpreted by me (3pts min.). @ -None X-rays interpreted by me (1pt min.). @ -None done CT interpreted by me (1pt min.). @ -None done U/S interpreted by me (1pt. min.). @ -None done What testing was considered but not performed or refused? (CT, X-rays, U/S, labs)? Why? @ -None What meds were considered but not given or refused? Why? @ -None Did you discuss the management of the patient with other professionals (professionals i.e. , PA, FLOWER MACHINE OPERATOR, lab, RT, psych nurse, group social worker, philosophy specialist, teacher, medical officer, onsite case manager)? Give summary @ -No Was smoking cessation discussed for >3mins.? @ -No Was critical care preformed (if so, how long)? @ -No Were there social determinants of health that impacted care today? How? (Homelessness, low income, unemployed, alcoholism, drug addiction, transportation, low edu. Level, literacy, decrease access to med. care, group home, rehab)? @ -No Was there de-escalation of care discussed even if they declined (Discuss DNR or withdrawal of care, Hospice)? DNR status @ -No What co-morbidities impacted this encounter? (DM, HTN, Smoking, COPD, CAD, [place] ncer, CVA, ARF, Chemo, Hep., AIDS, mental health diagnosis, sleep apnea, morbid obesity)? @ -None Was patient admitted / discharged? Hospital course, mention meds given and route, prescriptions, significant lab abnormalities, going to OR and other pertinent info. @ -Discharge patient is afebrile patient's lip did have noted hematoma with draining abscess he is on current antibiotics with improving symptoms. Patient needed clearance for rehab for a period Undiagnosed new problem with uncertain prognosis? @ -No Drug Therapy requiring intensive monitoring for toxicity (Heparin, Nitro, Insulin, Cardizem)? @ -No Were any procedures done? @ -No Diagnosis/symptom? @ -[Medical clearance, lip abscess Acute, or Chronic, or Acute on Chronic? @ -Acute Uncomplicated (without systemic symptoms) or Complicated (systemic symptoms)? @ -Uncomplicated Side effects of treatment? @ -No Exacerbation, Progression, or Severe Exacerbation? @ -No Poses a threat to life or bodily function? How? (Chest pain, [place], [place], pneumonia, PE, COPD, DKA, ARF, appy, cholecystitis, CVA, Diverticulitis, Homicidal, Suicidal, threat to staff... and all critical care pts) @ -No Disposition Clinical Impression: Contusion, lip, Abscess, lip Disposition: HOME SELF-CARE Condition: Stable Instructions (If sedation given, give patient instructions): Abscess (ED) Additional Instructions: Please return to the Emergency Department if symptoms worsen or any other concerns. Is patient prescribed a controlled substance at d/c from ED?: No Referrals: Maximiliano Nixon MD [Primary Care Provider] - 1-2 days Time of Disposition: 11:03
[2025-05-14 11:23] VITALS: BP 138/80; PULSE 58; RESP 18; TEMP 98
== END 2025-05-14 11:27 | disposition home or self-care (01) ==
LOC: EC 10:45
DX: S00.531A Contusion of lip, initial encounter (principal); K13.0 Diseases of lips; X58.XXXA Exposure to other specified factors, initial encounter
CPT/HCPCS: 99282